=== PATIENT | male | born 1975 | race Hispanic/Latino ===

== ENCOUNTER → 2020-08-30 | Outpatient (CLI) | payer OTHER | END | disposition home or self-care (01) | LOC: EDSEX → CANPRESDC → DAH 10:00 → EDSTATUS 09-07 09:45 | PROVIDERS: ATTEND Internal Medicine Gastroenterology | DX: Z01.818 Encounter for other preprocedural examination (principal); Z20.822 Contact with and (suspected) exposure to COVID-19; K57.92 Diverticulitis of intestine, part unspecified, without perforation or abscess without bleeding | CPT/HCPCS: 87635; C9803 ==

== ENCOUNTER 2020-09-20 09:55 | Emergency (ER) | payer OTHER ==
[~2020-09-20] VITALS: Ht 182.9 cm; Wt 90.7 kg
[2020-09-20 09:57] VITALS: BP 126/76
[2020-09-20 10:33] LABS: BASOPHILS % (AUTO) 0.8 % (0.0-5.0); HEMATOCRIT 40.9 % (36-48); LYMPHOCYTES % (AUTO) 31.5 % (21.0-51.0); MEAN CORPUSCULAR HEMOGLOBIN 30.9 pg (27.0-33.0); MEAN CORPUSCULAR HGB CONC 34.5 g/dL (32.0-36.0); MEAN CORPUSCULAR VOLUME 89.7 fL (79-99); MONOCYTES % (AUTO) 11.4 % (3.0-13.0); NEUTROPHILS % (AUTO) 54.9 % (40.0-77.0); NUCLEATED RED BLOOD CELLS 0.4 % (0.0-0.19); PLATELET COUNT (AUTO) 223 K/uL (130-400); RED BLOOD CELL COUNT(AUTO) 4.56 MIL/uL (4.00-5.50); RED CELL DISTRIBUTION WIDTH 11.4 % (11.0-15.5); WHITE BLOOD COUNT (AUTO) 5.2 K/uL (4.8-10.8)
[2020-09-20 10:43] LABS: CARBON DIOXIDE 32 mmol/L (21-32); CHLORIDE 104 mmol/L (101-111); GLOMERULAR FILTR. RATE CALC 64 mL/min (>60); GLUCOSE,RANDOM 95 mg/dL (70-105); POTASSIUM 3.9 mmol/L (3.5-5.1); SODIUM SERUM 141 mmol/L (136-145); UREA NITROGEN, BLOOD 14 mg/dL (7-18)
[2020-09-20 10:53] LABS: ALANINE AMINOTRANSFERASE 43 U/L (12-78); ALBUMIN 3.8 g/dL (3.5-5.0); ASPARTATE AMINOTRANSFERASE 27 U/L (10-37); BILIRUBIN,TOTAL 0.4 mg/dL (0.2-1.0); CREATINE KINASE, TOTAL 214 U/L (21-232); MYOGLOBIN 51 ng/mL (10-92); TOTAL PROTEIN, SERUM 7.2 g/dL (6.0-8.3); TROPONIN I < 0.04 ng/mL (0.00-0.06)
[2020-09-20 11:50] VITALS: BP 126/75
[2020-09-20 13:18] VITALS: BP 108/79
[2020-09-22] MEDS ORDERED: CYCL10TA7 PO (11:54)
[2020-09-22] MEDS ORDERED: VERA120C2 PO (11:54)
[2020-09-22] MEDS ORDERED: SIME80TA12 PO (11:54)
[2020-09-22] MEDS ORDERED: OMEP40CA21 PO (11:54)
[2020-09-22] MEDS ORDERED: ASPI-1443 PO (11:54)
[2020-09-22] MEDS ORDERED: ASCO-360 PO (11:54)
[2020-09-22] MEDS ORDERED: ACET-2247 PO (11:54)
[2020-09-22] MEDS ORDERED: IBUP-2070 PO (11:54)
== END 2020-09-20 13:19 | disposition home or self-care (01) ==
LOC: EDH 09:55 → EDSEX 09:55 → EDH 13:19
DX: I48.0 Paroxysmal atrial fibrillation (principal); R55 Syncope and collapse; I10 Essential (primary) hypertension; I48.92 Unspecified atrial flutter
CPT/HCPCS: 36415; 80053; 82550; 83874; 84484; 85025; 93005

== ENCOUNTER 2020-09-23 07:32 | Observation (INO) | payer OTHER ==
[2020-09-20 11:33] VITALS: BP 128/67
[2020-09-20 15:30] LABS: INR 0.97 (0.85-1.15); PROTHROMBIN TIME 10.6 SEC (9.6-11.6)
[2020-09-20 15:31] LABS: PARTIAL THROMBOPLASTIN TIME 26.5 SEC (26.3-35.5)
[~2020-09-23] VITALS: Ht 182.9 cm; Wt 95.0 kg
[2020-09-23] VITALS (11 sets, daily range): BP systolic 92–130; BP diastolic 48–67
[~2020-09-23 07:32] MED LIST: 0.9% NACL 500ML IV.SOLN 500 ML IV SCH; ACET-2247 PO; ASCO-360 PO; ASPI-1443 PO; CYCL10TA7 PO; IBUP-2070 PO; OMEP40CA21 PO; SIME80TA12 PO; VERA120C2 PO
[2020-09-23] MEDS ORDERED: LIDOCAINE HCL 400MG/20ML VIAL ONE ×2 (10:03→10:54)
[2020-09-23] MEDS ORDERED: MEPERIDINE-PF 25 MG/ML SYG ONE ×4 (10:03→12:33)
[2020-09-23] MEDS ORDERED: MIDAZOLAM HCL 1 MG/ML 2ML VIAL ONE ×4 (10:03→12:33)
[2020-09-23] MEDS ORDERED: HEPARIN 10,000 UNIT/10ML (1,000 UNIT/ML) VIAL ONE (10:03)
[2020-09-23] MEDS ORDERED: ISOPROTERENOL HCL 0.2 MG/ML AMP/VIAL/BAG ONE (11:02)
[2020-09-23] MEDS ORDERED: AMIODARONE 150MG VIAL ONE ×2 (12:22→12:34)
[2020-09-23] MEDS ORDERED: DiphenhydrAMINE HCL 50 MG/ML VIAL ONE (12:49)
[2020-09-23] MEDS ORDERED: ACETAMINOPHEN 325 MG TAB PO PRN (13:30)
[2020-09-23] MEDS ORDERED: IBUPROFEN 600 MG TABLET PO PRN (13:30)
[2020-09-23] MEDS: PROPAFENONE HCL 150 MG TABLET PO SCH ×2 (14:00→23:12)
[2020-09-23] MEDS: VERAPAMIL HCL 80 MG TABLET PO SCH ×2 (18:08→23:10)
[2020-09-23] MEDS: PANTOPRAZOLE 40 MG TAB DR PO SCH (20:57)
[2020-09-23] MEDS: SIMETHICONE 80 MG TAB.CHEW PO SCH (20:57)
[2020-09-24 04:00] VITALS: BP 101/57
[2020-09-24 04:12] LABS: BASOPHILS % (AUTO) 0.4 % (0.0-5.0); EOSINOPHILS % (AUTO) 0.8 % (0.0-8.0); HEMATOCRIT 36.2 % (42-54); LYMPHOCYTES % (AUTO) 23.3 % (21.0-51.0); MEAN CORPUSCULAR HEMOGLOBIN 30.8 pg (27.0-33.0); MEAN CORPUSCULAR HGB CONC 33.7 g/dL (32.0-36.0); MEAN CORPUSCULAR VOLUME 91.4 fL (79-99); MONOCYTES % (AUTO) 7.7 % (3.0-13.0); NEUTROPHILS % (AUTO) 67.4 % (40.0-77.0); PLATELET COUNT (AUTO) 214 K/uL (130-400); RED BLOOD CELL COUNT(AUTO) 3.96 MIL/uL (4.50-6.20); RED CELL DISTRIBUTION WIDTH 11.6 % (11.0-15.5); WHITE BLOOD COUNT (AUTO) 7.6 K/uL (4.8-10.8)
[2020-09-24 04:23] LABS: CREATININE 1.1 mg/dL (0.5-1.5); POTASSIUM 3.6 mmol/L (3.5-5.1)
[2020-09-24] MEDS: PROPAFENONE HCL 150 MG TABLET PO SCH ×2 (06:04→13:19)
[2020-09-24 07:18] VITALS: BP 110/69
[2020-09-24] MEDS ORDERED: ASPIRIN 81 MG EC TAB PO SCH (09:00)
[2020-09-24] MEDS: SIMETHICONE 80 MG TAB.CHEW PO SCH (10:24)
[2020-09-24] MEDS: PANTOPRAZOLE 40 MG TAB DR PO SCH (10:25)
[2020-09-24] MEDS: VERAPAMIL HCL 80 MG TABLET PO SCH ×2 (10:27→13:19)
[2020-09-24 11:15] VITALS: BP 104/58
[2020-09-24] MEDS ORDERED: PROP225C11 PO (14:09)
[2020-09-24 15:32] VITALS: BP 115/70
== END 2020-09-24 15:43 | disposition home or self-care (01) ==
LOC: DAH 07:32 → DAHIP 07:33 → EDSEX 09:00 → 4BH 13:55
PROVIDERS: ADMIT Internal Medicine; ATTEND Internal Medicine
DX: I47.1 Supraventricular tachycardia (principal); I48.92 Unspecified atrial flutter; H81.10 Benign paroxysmal vertigo, unspecified ear; E11.9 Type 2 diabetes mellitus without complications; F32.9 Major depressive disorder, single episode, unspecified; Z79.82 Long term (current) use of aspirin; Z79.899 Other long term (current) drug therapy
CPT/HCPCS: 36415 ×2; 80048; 85025; 85610; 85730; 93613; 93621; 93623; 93653; A4215; A4216; A4221; A4222; A4223 ×3; A4606; A4649 ×2; A4663; C1730 ×4; C1732; C1894 ×5; G0378 ×26; J0282 ×2; J1200; J1644 ×2; J2175 ×4; J2250 ×4; J3490 ×3; 93005; 99156; 99157

== ENCOUNTER → 2021-06-29 | Outpatient (CLI) | payer OTHER ==
[~2021-06-29] MED LIST changes: -0.9% NACL 500ML IV.SOLN 500 ML IV SCH; +CYCL-309 PO; -CYCL10TA7 PO; +PROP225C11 PO
== END | disposition home or self-care (01) ==
LOC: SHCH 10:00
PROVIDERS: ATTEND Internal Medicine Cardiovascular Disease
DX: I48.3 Typical atrial flutter (principal)
CPT/HCPCS: 93306

== ENCOUNTER 2021-12-30 15:49 | Emergency (ER) | payer OTHER ==
[~2021-12-30] VITALS: Ht 182.9 cm; Wt 104.3 kg
[2021-12-30] MEDS ORDERED: DiphenhydrAMINE HCL 50 MG/ML VIAL IV ONE (16:00)
[2021-12-30] MEDS ORDERED: METOCLOPRAMIDE 10 MG/2 ML VIAL IVP ONE (16:00)
[2021-12-30] MEDS ORDERED: KETOROLAC 30MG VIAL (30MG/ML) IVP ONE (16:00)
[2021-12-30 16:05] LABS: BASOPHILS % (AUTO) 0.5 % (0.0-5.0); EOSINOPHILS % (AUTO) 1.2 % (0.0-8.0); HEMATOCRIT 39.3 % (42-54); LYMPHOCYTES % (AUTO) 27.5 % (21.0-51.0); MEAN CORPUSCULAR HEMOGLOBIN 30.8 pg (27.0-33.0); MEAN CORPUSCULAR HGB CONC 34.6 g/dL (32.0-36.0); MEAN CORPUSCULAR VOLUME 89.1 fL (79-99); MONOCYTES % (AUTO) 12.7 % (3.0-13.0); NEUTROPHILS % (AUTO) 57.8 % (40.0-77.0); PLATELET COUNT (AUTO) 226 K/uL (130-400); RED BLOOD CELL COUNT(AUTO) 4.41 MIL/uL (4.50-6.20); RED CELL DISTRIBUTION WIDTH 11.7 % (11.0-15.5); WHITE BLOOD COUNT (AUTO) 5.9 K/uL (4.8-10.8)
[2021-12-30 16:12] LABS: CREATININE 1.1 mg/dL (0.5-1.5); POTASSIUM 3.8 mmol/L (3.5-5.1)
[2021-12-30] MEDS ORDERED: KETOROLAC 30MG VIAL (30MG/ML) ONE (16:15)
[2021-12-30] MEDS ORDERED: DiphenhydrAMINE HCL 50 MG/ML VIAL ONE (16:15)
[2021-12-30] MEDS ORDERED: METOCLOPRAMIDE 10 MG/2 ML VIAL ONE (16:15)
[2021-12-30 16:19] LABS: ALBUMIN 3.6 g/dL (3.5-5.0); TOTAL PROTEIN, SERUM 6.9 g/dL (6.0-8.3)
[2021-12-30 16:23] LABS: B-TYPE NATRIURETIC PEPTIDE < 5 pg/mL (0-100)
[2021-12-30 17:04] VITALS: BP 115/75
== END 2021-12-30 17:12 | disposition home or self-care (01) ==
LOC: EDH 15:49
DX: G43.909 Migraine, unspecified, not intractable, without status migrainosus (principal); I48.91 Unspecified atrial fibrillation; I10 Essential (primary) hypertension; I48.92 Unspecified atrial flutter; Z79.82 Long term (current) use of aspirin; Z79.899 Other long term (current) drug therapy
CPT/HCPCS: 99284; 96374; 96375; 84484; 80053; 83880; 85025; 36415; 93005; J1200; J1885; J2765

== ENCOUNTER → 2022-04-06 | Outpatient (CLI) | payer OTHER ==
[~2022-04-06] MED LIST changes: +IOHEXOL 350 MG/ML 100ML INFUS..BTL IV ONE
== END | disposition home or self-care (01) ==
LOC: RAH 10:28
PROVIDERS: ATTEND Internal Medicine Cardiovascular Disease
DX: R07.9 Chest pain, unspecified (principal); M47.815 Spondylosis without myelopathy or radiculopathy, thoracolumbar region
CPT/HCPCS: 75574; Q9967

== ENCOUNTER → 2022-09-18 | Outpatient (CLI) | payer OTHER ==
[~2022-09-18] MED LIST changes: -IOHEXOL 350 MG/ML 100ML INFUS..BTL IV ONE
== END | disposition home or self-care (01) ==
LOC: SHCH 14:30
PROVIDERS: ATTEND Internal Medicine Cardiovascular Disease
DX: I87.2 Venous insufficiency (chronic) (peripheral) (principal); I73.9 Peripheral vascular disease, unspecified
CPT/HCPCS: 93925; 93970

== ENCOUNTER 2024-01-02 06:30 | Day surgery (SDC) | payer OTHER ==
[2023-12-28 09:59] LABS: BASOPHILS # (AUTO) 0.06 K/uL (0.00-0.20); BASOPHILS % (AUTO) 0.9 % (0.0-5.0); EOSINOPHILS % (AUTO) 1.5 % (0.0-8.0); HEMATOCRIT 42.4 % (42-54); IMMATURE GRANULOCYTE ABSOLUTE 0.02 K/uL (0-1); MEAN CORPUSCULAR HGB CONC 33.3 g/dL (32.0-36.0); MEAN CORPUSCULAR VOLUME 93.2 fL (79-99); MONOCYTES # (AUTO) 0.7 K/uL (0.1-1.0); MONOCYTES % (AUTO) 10.8 % (3.0-13.0); NEUTROPHILS # (AUTO) 3.8 K/uL (1.8-7.7); NEUTROPHILS % (AUTO) 56.5 % (40.0-77.0); PLATELET COUNT (AUTO) 239 K/uL (130-400); RED BLOOD CELL COUNT(AUTO) 4.55 MIL/uL (4.50-6.20); RED CELL DISTRIBUTION WIDTH 11.9 % (11.0-15.5); WHITE BLOOD COUNT (AUTO) 6.7 K/uL (4.8-10.8)
[2023-12-28 10:01] LABS: CREATININE 1.1 mg/dL (0.5-1.3); POTASSIUM 3.7 mmol/L (3.5-5.1)
[2023-12-28 10:03] LABS: INR 0.97 (0.85-1.15); PROTHROMBIN TIME 10.5 SEC (9.6-11.6)
[2023-12-28 10:05] LABS: PARTIAL THROMBOPLASTIN TIME 26.2 SEC (26.3-35.5)
[2023-12-28 10:36] VITALS: BP 114/69; PULSE 70; RESP 16; TEMP 97.4
[~2024-01-02] VITALS: Ht 185.4 cm; Wt 114.4 kg
[~2024-01-02 06:30] MED LIST changes: -ACET-2247 PO; -ASCO-360 PO; +ASPI-1005 PO; -ASPI-1443 PO; +ATOR40TA71 PO; +CETI10TA57 PO; +CLOP75TA32 PO; -CYCL-309 PO; +GABA-529 PO; +GABA100C PO; -IBUP-2070 PO; +MAGNESIUM PO; +MVI PO; -OMEP40CA21 PO; +PANT40TA54 PO; -SIME80TA12 PO; +VENL-63 PO
[2024-01-02 07:10] VITALS: BP 135/77; PULSE 81; RESP 17; TEMP 98.4
[2024-01-02] MEDS: LIDOCAINE HCL 2% VISCOUS 15 ML UDCUP PO ONE (07:38)
[2024-01-02] MEDS: 0.9%NACL 1000ML 1,000 ML IV ONE (07:40)
[2024-01-02 09:15] VITALS: BP 111/52; PULSE 71; RESP 12
[2024-01-02] MEDS: FENTanyl CITRate PF 50 MCG/1 ML 2ML VIAL IVP ONE (09:17)
[2024-01-02] MEDS: MIDAZOLAM HCL 1 MG/ML 2ML VIAL IVP ONE (09:18)
[2024-01-02 09:20] VITALS: BP 109/66; PULSE 75; RESP 14
[2024-01-02 09:35] VITALS: BP 103/63; PULSE 71; RESP 12
[2024-01-02 09:50] VITALS: BP 105/57; PULSE 74; RESP 12; TEMP 98.1
[2024-01-02 10:05] VITALS: BP 100/62; PULSE 71; RESP 14
== END 2024-01-02 10:20 | disposition home or self-care (01) ==
LOC: DAH 06:30 → EDSTATUS 11:00
PROVIDERS: ATTEND Internal Medicine Cardiovascular Disease
DX: I48.0 Paroxysmal atrial fibrillation (principal); I34.0 Nonrheumatic mitral (valve) insufficiency; I48.4 Atypical atrial flutter; F32.A Depression, unspecified; I49.1 Atrial premature depolarization; E66.9 Obesity, unspecified; Z68.37 Body mass index [BMI] 37.0-37.9, adult; Z86.73 Personal history of transient ischemic attack (TIA), and cerebral infarction without residual deficits; Z79.82 Long term (current) use of aspirin; Z79.899 Other long term (current) drug therapy
CPT/HCPCS: 80048; 85025; 85610; 85730; 36415; 93005; 93325; C8925; J3010; J7030; J2250; A4615; A4215; A4657; A4222; A4221; A4663; A4216 ×2; A4606; A4223 ×3; 93312; 99152; G0500

== ENCOUNTER 2024-01-19 14:51 | Observation (INO) | payer OTHER ==
[~2024-01-19] VITALS: Ht 182.9 cm; Wt 113.4 kg
[2024-01-19 15:29] LABS: BASOPHILS # (AUTO) 0.03 K/uL (0.00-0.20); BASOPHILS % (AUTO) 0.4 % (0.0-5.0); EOSINOPHILS # (AUTO) 0.12 K/uL (0.00-0.70); EOSINOPHILS % (AUTO) 1.4 % (0.0-8.0); HEMATOCRIT 40.5 % (42-54); IMMATURE GRANULOCYTE ABSOLUTE 0.04 K/uL (0-1); LYMPHOCYTES # (AUTO) 2.1 K/uL (1.0-4.8); LYMPHOCYTES % (AUTO) 24.9 % (21.0-51.0); MEAN CORPUSCULAR HEMOGLOBIN 30.6 pg (27.0-33.0); MEAN CORPUSCULAR HGB CONC 34.6 g/dL (32.0-36.0); MEAN CORPUSCULAR VOLUME 88.4 fL (79-99); MONOCYTES # (AUTO) 0.9 K/uL (0.1-1.0); MONOCYTES % (AUTO) 10.3 % (3.0-13.0); NEUTROPHILS # (AUTO) 5.3 K/uL (1.8-7.7); NEUTROPHILS % (AUTO) 62.5 % (40.0-77.0); PLATELET COUNT (AUTO) 254 K/uL (130-400); RED BLOOD CELL COUNT(AUTO) 4.58 MIL/uL (4.50-6.20); RED CELL DISTRIBUTION WIDTH 11.9 % (11.0-15.5); WHITE BLOOD COUNT (AUTO) 8.4 K/uL (4.8-10.8)
[2024-01-19 15:34] LABS: CARBON DIOXIDE 29 mmol/L (21-32); CHLORIDE 97 mmol/L (101-111); CREATININE 1.2 mg/dL (0.5-1.3); GLOMERULAR FILTR. RATE CALC 75 mL/min (>90); GLUCOSE,RANDOM 105 mg/dL (70-105); POTASSIUM 3.5 mmol/L (3.5-5.1); SODIUM SERUM 135 mmol/L (136-145); UREA NITROGEN, BLOOD 17 mg/dL (7-18)
[2024-01-19 15:39] LABS: AMPHET/METH SCREEN,URINE NEGATIVE (NEGATIVE); BARBITURATE SCREEN, URINE NEGATIVE (NEGATIVE); BENZODIAZEPINES SCREEN,URINE NEGATIVE (NEGATIVE); CANNABINOID SCREEN,URINE NEGATIVE (NEGATIVE); COCAINE SCREEN,URINE NEGATIVE (NEGATIVE); OPIATE SCREEN,URINE NEGATIVE (NEGATIVE); PHENCYCLIDINE SCREEN,URINE NEGATIVE (NEGATIVE)
[2024-01-19 15:44] LABS: ALCOHOL, BLOOD < 3 mg/dL (0-10); CREATINE KINASE, TOTAL 281 U/L (21-232)
--- NOTE | 2024-01-19 15:48 | ERN ---
ED Note History of Present Illness Stated Complaint: PALPITATIONS Chief Complaint: Palpitations Time Seen by MD: 14:52 Dictation: A 48-year-old male presents to the ED for evaluation of palpitations onset BOOK JOGGER. Patient is complaining of dizziness, weakness, nausea but denies any chest pain, shortness a breath, sore throat or cough. Patient reports history of SVT, a flutter, AFib, PTSD, migraines, vertigo and ablation that was performed 5 years ago. Patient is a patient of Dr. Ram and Dr. Jose G Shaver. No other medical or surgical history mentioned. Allergies: Coded Allergies: No Known Drug Allergies (Unverified Allergy, Unknown, 09/20/20) Home Meds Active Scripts Propafenone HCl (Rythmol Sr) 225 Mg Cap.er.12h, 225 MG PO BID, #60 CAPSULE.DR 3 Refills Prov:MARCY VYAS MD 09/24/20 Reported Medications Cetirizine HCl (Cetirizine HCl) 10 Mg Tablet, 10 MG PO BID, TAB 12/28/23 [Mvi] No Conflict Check, 1 TAB PO DAILY 12/28/23 [Magnesium] No Conflict Check, 1 TAB PO DAILY 12/28/23 Gabapentin (Neurontin) 100 Mg Capsule, 1 CAP PO TID for 30 Days, #90 CAP 0 Refills 12/28/23 Gabapentin (Gabapentin) 100 Mg Capsule, 200 MG PO HS, CAP 12/28/23 Atorvastatin Calcium (Atorvastatin Calcium) 40 Mg Tablet, 1 TAB PO HS for 30 Days, #30 TAB 0 Refills 12/28/23 Venlafaxine HCl (Venlafaxine HCl ER) 150 Mg Cap.er.24h, 1 CAP PO DAILY for 30 Da ys, #30 CAP 0 Refills 12/28/23 Clopidogrel Bisulfate (Clopidogrel) 75 Mg Tablet, 1 TAB PO DAILY for 30 Days, #30 TAB 0 Refills 24 Pantoprazole Sodium (Pantoprazole Sodium) 40 Mg Tablet.dr, 1 TAB PO DAILY for 30 Days, #30 TAB 0 Refills 12/28/23 Aspirin (ASPIRIN 81MG CHEW TAB) 81 Mg Tab.chew, 1 TAB PO DAILY for 30 Days, #30 TAB 0 Refills 12/28/23 Verapamil HCl (Verapamil ER) 120 Mg Cap24h.pel, 120 MG PO AM 09/22/20 Past Medical History Past Medical History: A-Fib, Hypertension Additional Past Medical Hx: ATRIAL FLUTTER, SVT'S, Surgical History: Other Surgical History Other: HEART ABLATION Social History: Lives with family Review of System Dictation Constitutional: Positive for weakness Negative for fever,chills, and weight loss Eyes: Negative for injury, pain,redness, and discharge ENT: Negative for injury,pain or swelling Cardiovascular positive for palpitation negative for chest pain Respiratory: Negative for shortness of breath, cough, and wheezing, Abdomen/GI: Negative for abdominal pain, nausea, vomiting, diarrhea, and constipation Back: Negative for injury and pain : Negative for injury, bleeding and discharge MS/Extremity: Negative for injury and deformity Skin: Negative for rash, and discoloration Neuro: Positive for dizziness Negative for headache, weakness, numbness, tingling, and seizure Psych: Negative for suicide ideation, homicidal ideation, and hallucinations Initial Vital Sign VS Vital Signs Date Time Temp Pulse Resp B/P (MAP) Pulse Ox O2 Delivery O2 Flow Rate FiO2 01/19/24 14:53 98.8 72 20 123/81 98 Room Air 0 01/19/24 15:11 21 Physical Exam Dictation General: awake, alert, NAD Head/Face: Normocephalic, atraumatic Eyes: PERRL, EOMI, vision at baseline ENT: oral cavity clear, TMs clear, no signs of infection Neck: Trachea midline, supple, no nuchal rigidity Cardiovascular: RRR, normal S1/S2, No MRGs, no JVD Respiratory: CTAB, no respiratory distress, No rales or wheezes Abdomen: Soft, non-tender, non-distended, normal bowel sounds, no guarding or rebound. Skin: Warm, dry, normal turgor, no rash MS/Extremity: Pulses equal, no cyanosis, neurovascular intact, FROM Neuro: COAx4, GCS 15, strength 5/5, CN 2-12 intact, normal cerebellar exam, normal gait, Psych: Normal behavior, mood, and affect normal Results (Laboratory/Radiology) Laboratory/Radiology Laboratory Tests Test 01/19/24 15:07 01/19/24 15:20 01/19/24 16:14 White Blood Count 8.4 K/uL (4.8-10.8) Red Blood Count 4.58 MIL/uL (4.50-6.20) Hemoglobin 14.0 g/dL (14.0-18.0) Hematocrit 40.5 % (42-54) L Mean Corpuscular Volume 88.4 fL (79-99) Mean Corpuscular Hemoglobin 30.6 pg (27.0-33.0) Mean Corpuscular Hemoglobin Concent 34.6 g/dL (32.0-36.0) Red Cell Distribution Width 11.9 % (11.0-15.5) Platelet Count 254 K/uL (130-400) Mean Platelet Volume 9.2 fL (7.5-10.5) Immature Granulocyte % (Auto) 0.5 % (0-1) Neutrophils (%) (Auto) 62.5 % (40.0-77.0) Lymphocytes (%) (Auto) 24.9 % (21.0-51.0) Monocytes (%) (Auto) 10.3 % (3.0-13.0) Eosinophils (%) (Auto) 1.4 % (0.0-8.0) Basophils (%) (Auto) 0.4 % (0.0-5.0) Neutrophils # (Auto) 5.3 K/uL (1.8-7.7) Lymphocytes # (Auto) 2.1 K/uL (1.0-4.8) Monocytes # (Auto) 0.9 K/uL (0.1-1.0) Eosinophils # (Auto) 0.12 K/uL (0.00-0.70) Basophils # (Auto) 0.03 K/uL (0.00-0.20) Absolute Immature Granulocyte (auto 0.04 K/uL (0-1) Nucleated Red Blood Cells 0.0 % (0.0-0.19) Sodium Level 135 mmol/L (136-145) L Potassium Level 3.5 mmol/L (3.5-5.1) Chloride Level 97 mmol/L (101-111) L Carbon Dioxide Level 29 mmol/L (21-32) Blood Urea Nitrogen 17 mg/dL (7-18) Creatinine 1.2 mg/dL (0.5-1.3) Glomerular Filtration Rate Calc 75 mL/min (>90) Random Glucose 105 mg/dL (70-105) Total Calcium 8.8 mg/dL (8.5-10.1) Magnesium Level 2.00 mg/dL (1.80-2.40) Total Creatine Kinase 281 U/L (21-232) #H Troponin I High Sensitivity 7 ng/L (4-75) 6 ng/L (4-75) B-Type Natriuretic Peptide 6 pg/mL (0-100) Serum Alcohol < 3 mg/dL (0-10) Urine Opiates Screen NEGATIVE (NEGATIVE) Urine Barbiturates Screen NEGATIVE (NEGATIVE) Urine Phencyclidine Screen NEGATIVE (NEGATIVE) Urine Amphetamines Screen NEGATIVE (NEGATIVE) Urine Benzodiazepines Screen NEGATIVE (NEGATIVE) Urine Cocaine Screen NEGATIVE (NEGATIVE) Urine Marijuana (THC) Screen NEGATIVE (NEGATIVE) Labs Reviewed?: Yes ED Course ED Course Orders Procedure Category Date Status Time 12 Lead Ekg Tracing- EKG 01/19/24 Logged Technical 14:57 Cbc With Differential LAB 01/19/24 Complete 14:59 B-Type Natriuretic LAB 01/19/24 Complete Peptide 14:59 Chest 1vw RAD 01/19/24 Resulted 14:59 12 Lead Ekg Tracing- EKG 01/19/24 Logged Technical 14:59 Magnesium LAB 01/19/24 Complete 14:59 Creatine Kinase, Total LAB 01/19/24 Complete 14:59 Troponin I High LAB 01/19/24 Complete Sensitivity 14:59 Basic Metabolic Panel LAB 01/19/24 Complete 14:59 Drug Screen Urine LAB 01/19/24 Complete 14:59 Alcohol, Blood LAB 01/19/24 Complete 14:59 Troponin I High LAB 01/19/24 Complete Sensitivity 15:49 Vital Signs(Adult CPOE 01/19/24 Verified Hospitalist) 16:56 Nurse To Enter Home CPOE 01/19/24 Verified Medication 16:56 Admit Orders ADM 01/19/24 Verified 16:56 Vital Signs Date Time Temp Pulse Resp B/P (MAP) Pulse Ox O2 Delivery O2 Flow Rate FiO2 01/19/24 15:11 98.8 84 18 146/79 96 Room Air* 0 21 01/19/24 14:53 98.8 72 20 123/81 98 Room Air 0 Medical Decision Making MDM CC: palpitations Comorbidities: afib, SVT, a-flutter, HTN, PTSD. Differential diagnosis: arrythmia, ACS, metabolic disorder EKG: NSR w/ ectopic beats, normal axis, good rwp, no STEMI. Interpreted independently by me. VSS CBC: normal. BMP: normal, CK normal. Troponin x 2 normal. Discussed admission v DC w/ patient, he prefers admission for telemetry observation. Consultation: hospitalist for admission. MDM: Differential diagnosis: Palpitations, AFib Previous outside records reviewed: Old ER visits. Need for hospitalization: Patient does not meet criteria for hospitalization. Need for emergency major/minor surgery: No Patient's prior external medical records from other ER visits were reviewed by me as indicated. Prior testing and results from previous visits were reviewed. Prior tests were taken into account with medical decision making and resource utilization, independent historian/historians were used to obtain complete medical history. I independently interpreted the test that were performed, results were reviewed by me and considered findings on radiology if ordered. Medical management and examination interpretation discussions were had by me with other qualified healthcare professionals as indicated for the patient's care. DX & DISP Disposition: Inpatient Departure Impression: Primary Impression: Palpitations Additional Impression: Atrial fibrillation Condition: Stable Referrals: TONY PARHAM (PCP) I have reviewed, & agreed with my scribe's, documentation. (Entered by Rhonda Combs, acting as a scribe for Dr. Curiel) I personally scribed for ROBI CURIEL DO (DEVAN) on 01/19/24 at 15:48. Electronically submitted by Rhonda Combs ([email or web address]). ROBI CURIEL DO Jan 19, 2024 15:48
[2024-01-19 15:53] LABS: B-TYPE NATRIURETIC PEPTIDE 6 pg/mL (0-100)
--- NOTE | 2024-01-19 15:57 | HMCIMG ---
CHEST 1VW HISTORY: Chest pain COMPARISON: None FINDINGS: A frontal projection of the chest was obtained. Prominent interstitial markings are seen with possible superimposed infiltrates. The heart is borderline enlarged. Degenerative changes are seen. No evidence of aortic calcification is seen. IMPRESSION: 1. Prominent interstitial markings are seen with possible superimposed infiltrates.
[2024-01-19] MEDS ORDERED: ondanSETRON 4MG INJ IVP PRN (17:00)
[2024-01-19] MEDS ORDERED: acetaMINOPHEN 325 MG TAB PO PRN ×2 (17:00)
[2024-01-19] MEDS ORDERED: MAGNESIUM 2GM PREMIX 50ML 50 ML IV PRN (17:30)
[2024-01-19] MEDS ORDERED: PoTASSium chloRIDE 20MEQ ER 20 MEQ ERTAB PO PRN (17:30)
[2024-01-19] MEDS ORDERED: GLUCAGON 1MG KIT 1 MG ML IM PRN (17:30)
[2024-01-19] MEDS ORDERED: DEXTROSE 50%-WATER 50 ML DISP.SYRIN IV PRN (17:30)
[2024-01-19] MEDS ORDERED: PoTASSium chloRIDE 20MEQ/100ML 100 ML IV PRN (17:30)
[2024-01-19] MEDS ORDERED: PoTASSium chl 10% ELIXIR 20MEQ 20 MEQ/15 ML UDCUP PO PRN (17:30)
--- NOTE | 2024-01-19 17:33 | HP ---
[facility] HISTORY AND PHYSICAL Date of Service: Jan 19, 2024 Time of Service: 17:17 HISTORY OF PRESENT ILLNESS: 48-year-old male who presented to the emergency department with chief complaints of dizziness, nausea and palpitations, patient stated that he feels like his "heart is pumping fast. Patient also felt like his arms are numb. He stated that he was eating when it started. Patient was feeling okay yesterday no other complaints no no shortness of breaths no cough no fever no chills. Patient stated that he has Holter monitor from Dr. Shaver as he just saw him this past week for which they adjusted his verapamil from 120 now at 180 In the ED, his initial vitals showed temperature 98.8, pulse 72, respiratory rate 20, blood pressure 123/81, pulse oximetry 98% on room air. As per ED note, an EKG was done which showed normal sinus rhythm with ectopic beats, normal axis, good artery KUB, no STEMI which was interpreted by Dr. Curiel. Patient was recommended for admission for further monitoring/observation. Patient will be placed on telemetry. ] REVIEW OF SYSTEMS CONSTITUTIONAL: Denies fevers, chills, or night sweats. No unintentional weight loss reported. NEUROLOGICAL: Denies headache, amaurosis fugax, motor weakness, sensory deficit, vertigo/spinning sensation, gait abnormalities, or tremors. ENT: No hearing loss, otalgia, otorrhea, rhinitis, rhinorrhea, hoarseness, or sore throat. CARDIOVASCULAR: Denies any exertional angina, dyspnea on exertion, orthopnea, paroxysmal nocturnal dyspnea, palpitations, life-threatening arrhythmias, claudication. PULMONARY: Denies any shortness of breath, cough, phlegm/sputum, hemoptysis, pleuritic chest pain. SLEEP: Denies morning headaches, daytime somnolence or napping. Denies diff iculty falling asleep, staying asleep, waking from sleep. Denies knowledge of snoring. GASTROINTESTINAL: Denies any type of dysphagia to either liquids or solids. Denies nausea, vomiting, pyrosis, early satiety, abdominal pain, diarrhea, constipation, or changes in stool consistency or caliber. Denies coffee-ground emesis, hematemesis, hematochezia, or melanotic stools. GENITOURINARY: Denies frequency, urgency, nocturia, hematuria or incontinence (Storage/Irritative symptoms.) Low urinary stream, straining to void, urinary intermittency or hesitancy, splitting of the voiding stream, terminal dribbling. ENDOCRINOLOGIC: Denies polyuria, polydipsia, polyphagia or heat/cold in tolerances. HEMATOLOGIC: Denies thrombophilia/previous clots, or coagulopathy/bleeding disorders. ONCOLOGIC: Denies personal history of malignancy. DERMATOLOGIC: Denies rashes or pruritus. PSYCHIATRIC: Denies any suicidal or homicidal ideation. Denies hallucinations. PAST MEDICAL HISTORY: [SVT, atrial fibrillation, ] PAST SURGICAL/PROCEDURE HISTORY: [ Ablation ] PAST SOCIAL HISTORY: [Patient is disabled from the . He is currently not working. Denies tobacco, alcohol or illicit drug use ] FAMILY HISTORY: [ Noncontributory ] Coded Allergies: No Known Drug Allergies (Unverified Allergy, Unknown, 09/20/20) PHYSICAL EXAM GENERAL APPEARANCE: The patient is awake, alert, and oriented, in no acute cardiopulmonary distress. NEUROLOGICAL: Cranial nerves II-XII grossly intact. Motor is 5/5 in bilateral upper and lower extremities proximal to distal. No sensory deficits. HEENT: Face is symmetric. Pupils are equal and reactive. Extraocular movements are intact. NECK: Supple. No JVD. No thyromegaly. No submental, submandibular, pre- /postauricular, occipital or supraclavicular lymphadenopathy. CHEST: Normal chest expansion. No Telemetry. LUNGS: Absence of any rales, rhonchi or any wheezing. CARDIOVASCULAR: Regular. S1 and S2 normal. No appreciable rubs, murmurs or gallops. ABDOMEN: Soft, nontender, and nondistended. There is no rebound, voluntary guarding, or rigidity. : Deferred. No Williamson. EXTREMITIES: Non-edematous and not cyanotic. No clubbing. Good capillary refill. SKIN: No skin breakdown. Vital Sign (Last 24 Hours) 01/19/24 15:11 Temp 98.8 Pulse 84 Resp 18 B/P (MAP) 146/79 Pulse Ox 96 O2 Delivery Room Air* O2 Flow Rate 0 FiO2 21 LABS: Laboratory: Test 01/19/24 16:14 01/19/24 15:20 01/19/24 15:07 Range/Units Troponin I High Sensitivity 6 4-75 ng/L Urine Opiates Screen NEGATIVE NEGATIVE Urine Barbiturates Screen NEGATIVE NEGATIVE Urine Phencyclidine Screen NEGATIVE NEGATIVE Urine Amphetamines Screen NEGATIVE NEGATIVE Urine Benzodiazepines Screen NEGATIVE NEGATIVE Urine Cocaine Screen NEGATIVE NEGATIVE Urine Marijuana (THC) Screen NEGATIVE NEGATIVE White Blood Count 8.4 4.8-10.8 K/uL Red Blood Count 4.58 4.50-6.20 MIL/uL Hemoglobin 14.0 14.0-18.0 g/dL Hematocrit 40.5 L 42-54 % Mean Corpuscular Volume 88.4 79-99 fL Mean Corpuscular Hemoglobin 30.6 27.0-33.0 pg Mean Corpuscular Hemoglobin Concent 34.6 32.0-36.0 g/dL Red Cell Distribution Width 11.9 11.0-15.5 % Platelet Count 254 130-400 K/uL Mean Platelet Volume 9.2 7.5-10.5 fL Immature Granulocyte % (Auto) 0.5 0-1 % Neutrophils (%) (Auto) 62.5 40.0-77.0 % Lymphocytes (%) (Auto) 24.9 21.0-51.0 % Monocytes (%) (Auto) 10.3 3.0-13.0 % Eosinophils (%) (Auto) 1.4 0.0-8.0 % Basophils (%) (Auto) 0.4 0.0-5.0 % Neutrophils # (Auto) 5.3 1.8-7.7 K/uL Lymphocytes # (Auto) 2.1 1.0-4.8 K/uL Monocytes # (Auto) 0.9 0.1-1.0 K/uL Eosinophils # (Auto) 0.12 0.00-0.70 K/uL Basophils # (Auto) 0.03 0.00-0.20 K/uL Absolute Immature Granulocyte (auto 0.04 0-1 K/uL Nucleated Red Blood Cells 0.0 0.0-0.19 % Sodium Level 135 L 136-145 mmol/L Potassium Level 3.5 3.5-5.1 mmol/L Chloride Level 97 L 101-111 mmol/L Carbon Dioxide Level 29 21-32 mmol/L Blood Urea Nitrogen 17 7-18 mg/dL Creatinine 1.2 0.5-1.3 mg/dL Glomerular Filtration Rate Calc 75 >90 mL/min Random Glucose 105 70-105 mg/dL Total Calcium 8.8 8.5-10.1 mg/dL Magnesium Level 2.00 1.80-2.40 mg/dL Total Creatine Kinase 281 #H 21-232 U/L B-Type Natriuretic Peptide 6 0-100 pg/mL Serum Alcohol < 3 0-10 mg/dL Current Medications Medications (Trade) Dose Ordered Sig/Warren Route PRN Reason Start Time Stop Time Status Last Admin Dose Admin Acetaminophen (TYLenol 325MG TAB) 650 mg Q4H PRN PO TEMPERATURE GREATER THAN 101.5 01/19/24 17:00 02/18/24 16:59 UNV Acetaminophen (TYLenol 325MG TAB) 650 mg Q6H PRN PO MILD PAIN (1-3) 01/19/24 17:00 02/18/24 16:59 UNV Dextrose (D50w) 50 ml AD PRN IV HYPOGLYCEMIA PROTOCOL 01/19/24 17:30 02/18/24 17:29 UNV Enoxaparin Sodium (Lovenox) 40 mg DAILY SQ 01/20/24 09:00 02/19/24 08:59 UNV Glucagon (Glucagon 1mg Kit) 1 mg AD PRN IM HYPOGLYCEMIA PROTOCOL 01/19/24 17:30 02/18/24 17:29 UNV Magnesium Sulfate 50 ml @ 0 mls/hr PROTOCOL PRN IV MAGNESIUM PROTOCOL 01/19/24 17:30 02/18/24 17:29 UNV Metoprolol Tartrate (loprESSOR) 12.5 mg BID PO 01/19/24 21:00 02/18/24 20:59 UNV Ondansetron HCl (zoFRAN 4MG INJ) 4 mg Q6H PRN IVP NAUSEA/VOMITING 01/19/24 17:00 02/18/24 16:59 UNV Potassium Chloride 100 ml @ 100 mls/hr AD PRN IV POTASSIUM PROTOCOL 01/19/24 17:30 02/18/24 17:29 UNV Potassium Chloride (KCl 10% Elixir 20meq/15ml) 20 meq AD PRN PO POTASSIUM PROTOCOL 01/19/24 17:30 02/18/24 17:29 UNV DIAGNOSTICS / RADIOLOGY: [ ] ASSESSMENT: [Palpitation with possible underlying AFib, POA AFib RVR, POA not sustaining Generalized weakness, POA Dizziness , POA Nausea, POA Mild rhabdomyolysis, POA Hyponatremia, POA Hypochloremia, POA ] PLAN: [Patient will be admitted in telemetry floor We will continue with tele monitoring We will request his home medications We will provide VTE prophylaxis Patient will be on gentle fluid hydration due to mild rhabdomyolysis We will monitor his kidney functions We will renally dose medication and avoid nephrotoxic We will continue with antiemetics GI prophylaxis We will repeat labs tomorrow We will trend troponin We will order12 lead in the morning 2D echo in a.m. If his symptoms persist we will consider Cardiology consult in a.m. Patient is a full code Discussed plan with the patient, he verbalized understanding and is in agreement with the plan Discussed case with attending physician, above plan was formulated ADVANCED CARE PLANNING 1. Which of the following were discussed? Hospice Care - Yes / No Therapeutic options - Yes / No Advance Directives - Yes / No Other discussions - 2. Discussed with who? Patient 3. Voluntary nature of this service was explained to the patient? Yes / No 4. Amount of time spent - __21 mins____ 5. Reviewed by Physician? (if this service was performed by NPP) Yes / No ] ATTESTATION BY PHYSICIAN I have seen and examined the patient. I reviewed the documentation, medical decision making, and treatment plan as noted by the mid-level provider above. I agree with the findings and plan of care. DEEP CELIS MD, [facility] Jan 19, 2024 17:33
[2024-01-19] MEDS ORDERED: CHOL100046 PO (17:52)
[2024-01-19] MEDS ORDERED: ESCI-8 PO (17:52)
[2024-01-19 17:56] LABS: CHOLESTEROL 137 mg/dL (<200); HDL CHOLESTEROL 51 mg/dL (29-71); HEMOGLOBIN A1C 5.4 % (4.0-6.0); LDL DIRECT 72 mg/dL (0-99); TRIGLYCERIDES 104 mg/dL (30-200)
--- NOTE | 2024-01-19 19:54 | EKG ---
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
[2024-01-19] MEDS: metoPROLOL tartRATE 25 MG TAB PO SCH (21:20)
[2024-01-20 04:59] LABS: HEMATOCRIT 41.5 % (42-54); MEAN CORPUSCULAR VOLUME 91.2 fL (79-99); RED BLOOD CELL COUNT(AUTO) 4.55 MIL/uL (4.50-6.20); RED CELL DISTRIBUTION WIDTH 12.1 % (11.0-15.5); WHITE BLOOD COUNT (AUTO) 7.2 K/uL (4.8-10.8)
[2024-01-20 05:24] LABS: ALBUMIN 3.3 g/dL (3.5-5.0); BILIRUBIN,TOTAL 0.6 mg/dL (0.2-1.0); CREATININE 1.1 mg/dL (0.5-1.3); POTASSIUM 3.7 mmol/L (3.5-5.1); TOTAL PROTEIN, SERUM 6.2 g/dL (6.0-8.3)
--- NOTE | 2024-01-20 07:05 | EKG ---
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
[2024-01-20] MEDS: ENOXAPARIN SODIUM 40 MG/0.4 ML SYRINGE SQ SCH (09:04)
[2024-01-20 09:11] VITALS: BP 119/67; PULSE 73; RESP 16; TEMP 97.8; O2SAT 97
--- NOTE | 2024-01-20 10:44 | NUR ---
DISCHARGED AMBULATORY WITH SPOUSE, ALL BELONGINGS, UNDERSTOOD INSTRUCTIONS PIV OUT
--- NOTE | 2024-01-20 11:28 | DS ---
Discharge Summary Assessment/Plan: Discharge diagnosis Admitting diagnosis [Palpitation with possible underlying AFib, POA AFib RVR, POA not sustaining Generalized weakness, POA Dizziness , POA Nausea, POA Mild rhabdomyolysis, POA Hyponatremia, POA Hypochloremia, POA ] PLAN: [Patient will be admitted in telemetry floor We will continue with tele monitoring We will request his home medications We will provide VTE prophylaxis Patient will be on gentle fluid hydration due to mild rhabdomyolysis We will monitor his kidney functions We will renally dose medication and avoid nephrotoxic We will continue with antiemetics GI prophylaxis We will repeat labs tomorrow We will trend troponin We will order12 lead in the morning 2D echo in a.m. If his symptoms persist we will consider Cardiology consult in a.m. Patient is a full code Discussed plan with the patient, he verbalized understanding and is in agreement with the plan Discussed case with attending physician, above plan was formulated ADVANCED CARE PLANNING 1. Which of the following were discussed? Hospice Care - Yes / No Therapeutic options - Yes / No Advance Directives - Yes / No Other discussions - 2. Discussed with who? Patient 3. Voluntary nature of this service was explained to the patient? Yes / No 4. Amount of time spent - __21 mins____ 5. Reviewed by Physician? (if this service was performed by NPP) Yes / No ] Discharge Instructions: Follow up with PCP in 2-3 days Follow up with the tombstone erector helper in one week Home Medications: Active Scripts Propafenone HCl (Rythmol Sr) 225 Mg Cap.er.12h, 225 MG PO BID, #60 CAPSULE. 3 Refills Prov:MARCY VYAS MD 09/24/20 Reported Medications Escitalopram Oxalate (Escitalopram Oxalate) 10 Mg Tablet, 1 TAB PO DAILY for 30 Days, #30 TAB 0 Refills 01/19/24 Cholecalciferol (Vitamin D3) (Vitamin D3) 25 Mcg (1000 Unit) Capsule, 1 CAP PO DAILY for 30 Days, #30 CAP 0 Refills 01/19/24 Cetirizine HCl (Cetirizine HCl) 10 Mg Tablet, 10 MG PO BID, TAB 12/28/23 [Mvi] No Conflict Check, 1 TAB PO DAILY 12/28/23 [Magnesium] No Conflict Check, 1 TAB PO DAILY 12/28/23 Gabapentin (Neurontin) 100 Mg Capsule, 1 CAP PO TID for 30 Days, #90 CAP 0 Refills 12/28/23 Gabapentin (Gabapentin) 100 Mg Capsule, 200 MG PO HS, CAP 12/28/23 Atorvastatin Calcium (Atorvastatin Calcium) 40 Mg Tablet, 1 TAB PO HS for 30 Days, #30 TAB 0 Refills 12/28/23 Venlafaxine HCl (Venlafaxine HCl ER) 150 Mg Cap.er.24h, 1 CAP PO DAILY for 30 Days, #30 CAP 0 Refills 12/28/23 Clopidogrel Bisulfate (Clopidogrel) 75 Mg Tablet, 1 TAB PO DAILY for 30 Days, #30 TAB 0 Refills 12/28/23 Pantoprazole Sodium (Pantoprazole Sodium) 40 Mg Tablet.dr, 1 TAB PO DAILY for 30 Days, #30 TAB 0 Refills 12/28/23 Aspirin (ASPIRIN 81MG CHEW TAB) 81 Mg Tab.chew, 1 TAB PO DAILY for 30 Days, #30 TAB 0 Refills 12/28/23 Verapamil HCl (Verapamil ER) 120 Mg Cap24h.pel, 120 MG PO AM 09/22/20 Time spent arranging discharge: 31-60 minutes ATTESTATION BY PHYSICIAN I have seen and examined the patient. I reviewed the documentation, medical decision making, and treatment plan as noted by the mid-level provider above. I agree with the findings and plan of care. DEEP CELIS MD, [facility] Jan 20, 2024 11:28
--- NOTE | 2024-01-20 11:33 | DS ---
Discharge Summary Hospital Course Summary: 48-year-old male who presented to the emergency department with chief complaints of dizziness, nausea and palpitations, patient stated that he feels like his "heart is pumping fast. Patient also felt like his arms are numb. He stated that he was eating when it started. Patient was feeling okay yesterday no other complaints no no shortness of breaths no cough no fever no chills. Patient stated that he has Holter monitor from Dr. Shaver as he just saw him this past week for which they adjusted his verapamil from 120 now at 180 In the ED, his initial vitals showed temperature 98.8, pulse 72, respiratory rate 20, blood pressure 123/81, pulse oximetry 98% on room air. As per ED note, an EKG was done which showed normal sinus rhythm with ectopic beats, normal axis, good artery KUB, no STEMI which was interpreted by Dr. Curiel. Patient was recommended for admission for further monitoring/observation. Patient will be placed on telemetry. Patient was kept overnight and per report and patient's report he has not had any issues or episodes of palpitations. Patient's home medication has been reconciled and he has been evaluated by on-call judge clerk for which he was cleared from their standpoint and patient will need to follow up with Dr. Shaver in one week. Continue with the Holter monitor. Home medication continued. Patient has been discharged, he continues to be stable. Maintenance Job Titles(s): [facility] Procedure(s): [place] [address] [address] IMAGING REPORT Signed PATIENT: FARNAZ VASQUEZ JR MR#: [id number] : 1975 SEX: M AGE: 48 LOCATION: [facility] ORDER 1500 STATUS: REG ER REPORT#: [id number] SERVICE 1459 REASON: chest pain ORDERING PHYSICIAN: ROBI CURIEL DO PROCEDURE: CXR1VW - CHEST 1VW CHEST 1VW HISTORY: Chest pain COMPARISON: None FINDINGS: A frontal projection of the chest was obtained. Prominent interstitial markings are seen with possible superimposed infiltrates. The heart is borderline enlarged. Degenerative changes are seen. No evidence of aortic calcification is seen. IMPRESSION: 1. Prominent interstitial markings are seen with possible superimposed infiltrates. DICTATED BY: ANAIS QUINONES MD DATE: 01/19/241553 ELECTRONICALLY SIGNED BY: ANAIS QUINONES MD DATE: 01/19/241556 Assessment/Plan: Discharge diagnosis Admitting diagnosis [Palpitation with possible underlying AFib, POA AFib RVR, POA not sustaining Generalized weakness, POA Dizziness , POA Nausea, POA Mild rhabdomyolysis, POA Hyponatremia, POA Hypochloremia, POA ] PLAN: [Patient will be admitted in telemetry floor We will continue with tele monitoring We will request his home medications We will provide VTE prophylaxis Patient will be on gentle fluid hydration due to mild rhabdomyolysis We will monitor his kidney functions We will renally dose medication and avoid nephrotoxic We will continue with antiemetics GI prophylaxis We will repeat labs tomorrow We will trend troponin We will order12 lead in the morning 2D echo in a.m. If his symptoms persist we will consider Cardiology consult in a.m. Patient is a full code Discussed plan with the patient, he verbalized understanding and is in agreement with the plan Discussed case with attending physician, above plan was formulated ADVANCED CARE PLANNING 1. Which of the following were discussed? Hospice Care - Yes / No Therapeutic options - Yes / No Advance Directives - Yes / No Other discussions - 2. Discussed with who? Patient 3. Voluntary nature of this service was explained to the patient? Yes / No 4. Amount of time spent - __21 mins____ 5. Reviewed by Physician? (if this service was performed by NPP) Yes / No ] Discharge Instructions: [place] [address] [address] IMAGING REPORT Signed PATIENT: FARNAZ VASQUEZ JR MR#: [id number] : 1975 SEX: M AGE: 48 LOCATION: [facility] ORDER 1500 STATUS: REG ER REPORT#: [id number] SERVICE 1459 REASON: chest pain ORDERING PHYSICIAN: ROBI CURIEL DO PROCEDURE: CXR1VW - CHEST 1VW CHEST 1VW HISTORY: Chest pain COMPARISON: None FINDINGS: A frontal projection of the chest was obtained. Prominent interstitial markings are seen with possible superimposed infiltrates. The heart is borderline enlarged. Degenerative changes are seen. No evidence of aortic calcification is seen. IMPRESSION: 1. Prominent interstitial markings are seen with possible superimposed infiltrates. DICTATED BY: ANAIS QUINONES MD DATE: 01/19/241553 ELECTRONICALLY SIGNED BY: ANAIS QUINONES MD DATE: 01/19/241556 Home Medications: Active Scripts Propafenone HCl (Rythmol Sr) 225 Mg Cap.er.12h, 225 MG PO BID, #60 CAPSULE.DR 3 Refills Prov:MARCY VYAS MD 09/24/20 Reported Medications Escitalopram Oxalate (Escitalopram Oxalate) 10 Mg Tablet, 1 TAB PO DAILY for 30 Days, #30 TAB 0 Refills 01/19/24 Cholecalciferol (Vitamin D3) (Vitamin D3) 25 Mcg (1000 Unit) Capsule, 1 CAP PO DAILY for 30 Days, #30 CAP 0 Refills 01/19/24 Cetirizine HCl (Cetirizine HCl) 10 Mg Tablet, 10 MG PO BID, TAB 12/28/23 [Mvi] No Conflict Check, 1 TAB PO DAILY 12/28/23 [Magnesium] No Conflict Check, 1 TAB PO DAILY 12/28/23 Gabapentin (Neurontin) 100 Mg Capsule, 1 CAP PO TID for 30 Days, #90 CAP 0 Refills 12/28/23 Gabapentin (Gabapentin) 100 Mg Capsule, 200 MG PO HS, CAP 12/28/23 Atorvastatin Calcium (Atorvastatin Calcium) 40 Mg Tablet, 1 TAB PO HS for 30 Days, #30 TAB 0 Refills 12/28/23 Venlafaxine HCl (Venlafaxine HCl ER) 150 Mg Cap.er.24h, 1 CAP PO DAILY for 30 Days, #30 CAP 0 Refills 12/28/23 Clopidogrel Bisulfate (Clopidogrel) 75 Mg Tablet, 1 TAB PO DAILY for 30 Days, #30 TAB 0 Refills 12/28/23 Pantoprazole Sodium (Pantoprazole Sodium) 40 Mg Tablet.dr, 1 TAB PO DAILY for 30 Days, #30 TAB 0 Refills 12/28/23 Aspirin (ASPIRIN 81MG CHEW TAB) 81 Mg Tab.chew, 1 TAB PO DAILY for 30 Days, #30 TAB 0 Refills 12/28/23 Verapamil HCl (Verapamil ER) 120 Mg Cap24h.pel, 120 MG PO AM 09/22/20 Time spent arranging discharge: 31-60 minutes ATTESTATION BY PHYSICIAN I have seen and examined the patient. I reviewed the documentation, medical decision making, and treatment plan as noted by the mid-level provider above. I agree with the findings and plan of care. DEEP CELIS MD, JANICE B [facility] Jan 20, 2024 11:33
== END 2024-01-20 10:42 | disposition home or self-care (01) ==
LOC: EDH 14:51 → EDHIP 16:56 → INTOOBSV 16:56
PROVIDERS: ADMIT Internal Medicine; ATTEND Internal Medicine
DX: R00.2 Palpitations (principal); R11.0 Nausea; R42 Dizziness and giddiness; I48.91 Unspecified atrial fibrillation; R07.89 Other chest pain; E78.5 Hyperlipidemia, unspecified; E87.1 Hypo-osmolality and hyponatremia; E87.8 Other disorders of electrolyte and fluid balance, not elsewhere classified; I10 Essential (primary) hypertension; F43.10 Post-traumatic stress disorder, unspecified; M62.82 Rhabdomyolysis; Z79.899 Other long term (current) drug therapy; Z98.890 Other specified postprocedural states
CPT/HCPCS: 99285; 83036; 82550; 83735; 84484 ×4; 80061; 80048; 83880; 80305; 85025; 36415 ×2; 71045; 93005 ×2; 96372; 80053; 85027; G0378 ×18; J1650

== ENCOUNTER 2024-04-20 17:16 | Emergency (ER) | payer OTHER ==
[~2024-04-20] VITALS: Ht 188 cm; Wt 127.0 kg
[~2024-04-20 17:16] MED LIST changes: +CHOL100046 PO; +ESCI-8 PO
--- NOTE | 2024-04-20 17:40 | ERN ---
ED Note History of Present Illness Stated Complaint: STROKE LIKE SYMPTOMS Chief Complaint: Multiple Complaints Time Seen by MD: 17:21 Time Seen by Midlevel: 17:23 Dictation: Mr. Vasquez is a 48-year-old male with history of hypertension, hyperlipidemia, a trial fibrillation, GERD, migraine headaches, TIA who presented to the emergency department this evening for evaluation of stroke symptoms. He ambulated with steady gait into the facility. Patient uncooperative stating he can not answer questions because he does not feel well. Patient had been aggressive with triage nurse stating he could not answer questions or be examined because he was ill. He called the police department to complain about triage nurse stating he was a and he felt that we were not moving him to a bed fast enough. Initial blood pressure was elevated at 189/87 and heart rate was at 104. He complains of left-sided headache and numbness to his left cheek, left arm, and left leg. He was then taken to room 17 or I attempted examination. He was alert and oriented and answered questions with clears speech. He was able to move all extremities but continued to complain of paresthesia to the left side. Smile is symmetrical. He continues to complain of left-sided headache. He denies use of alcohol or recreational drugs. Patient is a nonsmoker. According to patient's symptoms began at approximately 4:30 p.m. when he stated he was not feeling well and went to go lay down. He was nauseated and had emesis x1. He complained of palpitations and rapid heart rate. Patient was admitted to [facility] last Sunday with similar symptoms and was discharged on afternoon. According to patient, he was told that he had a mini stroke. There was no change to his medication regimen. Patient does take Pradaxa twice daily with last dose today at 8:00 a.m.. He was scheduled to have an ablation for atrial fibrillation sometime last week but it was canceled due to his hospital admission. He denies chest pain, shortness of breath, cough, abdominal pain, nausea, vomiting, diarrhea, melena, hematochezia, hematemesis, vision changes, difficulty speaking, difficulty swallowing, or focal weakness. Stroke alert was activated and patient immediately taken to CT. Allergies: Coded Allergies: No Known Drug Allergies (Unverified Allergy, Unknown, 09/20/20) Emergency Care DRY PLASTERER: None Home Meds Active Scripts Propafenone HCl (Rythmol Sr) 225 Mg Cap.er.12h, 225 MG PO BID, #60 CAPSULE.DR 3 Refills Prov:MARCY VYAS MD 09/24/20 Reported Medications Escitalopram Oxalate (Escitalopram Oxalate) 10 Mg Tablet, 1 TAB PO DAILY for 30 Days, #30 TAB 0 Refills 01/19/24 Cholecalciferol (Vitamin D3) (Vitamin D3) 25 Mcg (1000 Unit) Capsule, 1 CAP PO DAILY for 30 Days, #30 CAP 0 Refills 01/19/24 Cetirizine HCl (Cetirizine HCl) 10 Mg Tablet, 10 MG PO BID, TAB 12/28/23 [Mvi] No Conflict Check, 1 TAB PO DAILY 12/28/23 [Magnesium] No Conflict Check, 1 TAB PO DAILY 12/28/23 Gabapentin (Neurontin) 100 Mg Capsule, 1 CAP PO TID for 30 Days, #90 CAP 0 Refills 12/28/23 Gabapentin (Gabapentin) 100 Mg Capsule, 200 MG PO HS, CAP 12/28/23 Atorvastatin Calcium (Atorvastatin Calcium) 40 Mg Tablet, 1 TAB PO HS for 30 Days, #30 TAB 0 Refills 12/28/23 Venlafaxine HCl (Venlafaxine HCl ER) 150 Mg Cap.er.24h, 1 CAP PO DAILY for 30 Days, #30 CAP 0 Refills 12/28/23 Clopidogrel Bisulfate (Clopidogrel) 75 Mg Tablet, 1 TAB PO DAILY for 30 Days, #30 TAB 0 Refills 12/28/23 Pantoprazole Sodium (Pantoprazole Sodium) 40 Mg Tablet.dr, 1 TAB PO DAILY for 30 Days, #30 TAB 0 Refills 12/28/23 Aspirin (ASPIRIN 81MG CHEW TAB) 81 Mg Tab.chew, 1 TAB PO DAILY for 30 Days, #30 TAB 0 Refills 12/28/23 Verapamil HCl (Verapamil ER) 120 Mg Cap24h.pel, 120 MG PO AM 09/22/20 Past Medical History Past Medical History: A-Fib, High Cholesterol, Hypertension, TIA Additional Past Medical Hx: VERTIGO AND PTSD Surgical History: Unknown Surgical History Other: ABLATION PSYCH History: post traumatic stress Social History: Lives with family (; lives with ) RN Note Reviewed/Agreed w/PFSH: Yes Review of System Dictation REVIEW OF SYSTEMS: CONSTITUTIONAL: Patient denies fevers, chills, sweats and weight changes. States I just do not feel good EYES: Patient denies any visual symptoms. EARS, NOSE, AND THROAT: No difficulties with hearing. No symptoms of rhinitis or sore throat. CARDIOVASCULAR: Patient denies chest pains, orthopnea and paroxysmal nocturnal dyspnea. Reports palpitations. History of atrial fibrillation. Patient on chronic anticoagulation; Pradaxa (last dose 0800 today) RESPIRATORY: No dyspnea on exertion, no wheezing or cough. GI: No diarrhea, constipation, abdominal pain, hematochezia or melena. Reported nausea with emesis x1 denies bleeding : No urinary hesitancy or dribbling. No nocturia or urinary frequency. No abnormal urethral discharge. MUSCULOSKELETAL: No myalgias or arthralgias. NEUROLOGIC: no seizures. . Patient denies focal weakness. Patient reports left-sided headache. He denies photophobia/phonophobia. Patient reports numbness to the left side of face, left arm, and left leg. Patient states he has a history of migraine headaches PSYCHIATRIC: Patient denies problems with mood disturbance. No problems with anxiety. History PTSD ENDOCRINE: No excessive urination or excessive thirst. DERMATOLOGIC: Patient denies any rashes or skin changes. Initial Vital Sign VS Vital Signs Date Time Temp Pulse Resp B/P (MAP) Pulse Ox O2 Delivery O2 Flow Rate FiO2 04/20/24 17:24 98.8 104 20 189/87 98 Room Air 0 04/20/24 17:54 21 Physical Exam Dictation Vital signs: Reviewed. Constitutional: Moderate distress. Patient agitated Head/Face: Normocephalic, atraumatic. Eyes: Periorbital areas with no swelling, redness, or edema. Lids and lashes are normal. Conjunctival injection is absent. Sclera anicteric. Pupils equal, rou nd, 2mm ENT: Pinnas intact and no signs of trauma or erythema. Ear canals clear and no discharge. TMs no erythema. No nasal discharge or bleeding noted. Oropharynx with no exudate, redness, swelling, masses, exudates, or evidence of obstruction. Uvula midline. Mucous membranes moist. Neck: Trachea midline, no masses palpated, and no cervical lymphadenopathy. No swelling. Supple, full range of motion. Chest/Axilla: No tenderness, no crepitus, no paradoxical movement, no retractions. Cardiovascular: Regular rate, regular rhythm, no murmur, no gallops. Symmetric pulses. No peripheral edema. Initial blood pressure 189/87. Initial heart rate 104. Twelve lead EKG reflects a sinus rhythm without ST elevation or depression. Respiratory: Respirations even and unlabored. Lung sounds clear; no wheezes, rales or rhonchi. Room air SpO2 99% Gastrointestinal: Obese. No distention is appreciated. Bowel sounds are normal. No mass or organomegaly . There is no tenderness. No rebound. No rigidity. No voluntary or involuntary guarding. No Verma's sign. Neurological: Normal speech, gross motor function intact, gross sensory function intact. No dysphasia, no dysarthria. NIHSS=5. Difficult assessment due to patient minimally cooperative. Last known well time 4:30 p.m. Musculoskeletal/Extremities: All extremities have full range of motion, no pain or tenderness on palpation. Symmetric pulses. Integumentary: Intact. Skin is normal color, warm and dry. Cap refill less than 3 seconds. Results (Laboratory/Radiology) Laboratory/Radiology Laboratory Tests Test 04/20/24 17:52 04/20/24 18:16 White Blood Count 9.6 K/uL (4.8-10.8) Red Blood Count 4.32 MIL/uL (4.50-6.20) L Hemoglobin 13.1 g/dL (14.0-18.0) L Hematocrit 39.5 % (42-54) L Mean Corpuscular Volume 91.4 fL (79-99) Mean Corpuscular Hemoglobin 30.3 pg (27.0-33.0) Mean Corpuscular Hemoglobin Concent 33.2 g/dL (32.0-36.0) Red Cell Distribution Width 12.4 % (11.0-15.5) Platelet Count 318 K/uL (130-400) Mean Platelet Volume 8.7 fL (7.5-10.5) Immature Granulocyte % (Auto) 1.1 % (0-1) H Neutrophils (%) (Auto) 55.8 % (40.0-77.0) Lymphocytes (%) (Auto) 31.5 % (21.0-51.0) Monocytes (%) (Auto) 9.3 % (3.0-13.0) Eosinophils (%) (Auto) 1.7 % (0.0-8.0) Basophils (%) (Auto) 0.6 % (0.0-5.0) Neutrophils # (Auto) 5.4 K/uL (1.8-7.7) Lymphocytes # (Auto) 3.0 K/uL (1.0-4.8) Monocytes # (Auto) 0.9 K/uL (0.1-1.0) Eosinophils # (Auto) 0.16 K/uL (0.00-0.70) Basophils # (Auto) 0.06 K/uL (0.00-0.20) Absolute Immature Granulocyte (auto 0.11 K/uL (0-1) Nucleated Red Blood Cells 0.0 % (0.0-0.19) Prothrombin Time 10.5 SEC (9.6-11.6) Prothromb Time International Ratio <= 0.93 (0.85-1.15) Activated Partial Thromboplast Time 29.8 SEC (26.3-35.5) Sodium Level 141 mmol/L (136-145) Potassium Level 3.9 mmol/L (3.5-5.1) Chloride Level 103 mmol/L (101-111) Carbon Dioxide Level 28 mmol/L (21-32) Blood Urea Nitrogen 15 mg/dL (7-18) Creatinine 1.2 mg/dL (0.5-1.3) Glomerular Filtration Rate Calc 75 mL/min (>90) Random Glucose 143 mg/dL (70-105) H Total Calcium 8.4 mg/dL (8.5-10.1) L Total Creatine Kinase 159 U/L (21-232) # Troponin I High Sensitivity 6 ng/L (4-75) B-Type Natriuretic Peptide 6 pg/mL (0-100) LDL Cholesterol 83 mg/dL (0-99) Serum Alcohol < 2 mg/dL (0-10) Urine Color COLORLESS (YELLOW) Urine Appearance CLEAR (CLEAR) Urine pH 6.0 (5.0-8.0) Urine Specific [place] 1.002 (1.001-1.031) Urine Protein NEGATIVE mg/dL (NEGATIVE) Urine Glucose (UA) NEGATIVE mg/dL (NEGATIVE) Urine Ketones NEGATIVE mg/dL (NEGATIVE) Urine Occult Blood NEGATIVE (NEGATIVE) Urine Nitrate NEGATIVE (NEGATIVE) Urine Bilirubin NEGATIVE mg/dL (NEGATIVE) Urine Urobilinogen 0.2 mg/dL (0.2-1.0) Urine Leukocyte Esterase NEGATIVE Mariano/uL Urine RBC None /HPF (0-1) Urine WBC 0-1 /HPF (0-1) Urine Bacteria None /HPF (None Seen) Urine Opiates Screen NEGATIVE (NEGATIVE) Urine Barbiturates Screen NEGATIVE (NEGATIVE) Urine Phencyclidine Screen NEGATIVE (NEGATIVE) Urine Amphetamines Screen NEGATIVE (NEGATIVE) Urine Benzodiazepines Screen NEGATIVE (NEGATIVE) Urine Cocaine Screen NEGATIVE (NEGATIVE) Urine Marijuana (THC) Screen NEGATIVE (NEGATIVE) Labs Reviewed?: Yes EKG: (+) NSR EKG Comment: EKG Interpretation: Time Reviewed: 1803 Ventricular rate: 94 bpm TN Interval: 64 ms QRS duration: 93 ms Clinical impression: Sinus rhythm; rate [address] elevation or depression EKG Reviewed and interpreted by Dr Villagomez X-RAY Comment: PATIENT: FARNAZ VASQUEZ JR MR#: [id number] : 1975 SEX: M AGE: 48 LOCATION: [facility] ORDER 34 STATUS: REG ER [facility] REPORT#: [id number] SERVICE 31 REASON: stroke ORDERING PHYSICIAN: VIANEY TROY NP PROCEDURE: CXR1VW - CHEST 1VW CHEST 1VW CLINICAL HISTORY: stroke COMPARISON: 01/19/2024 TECHNIQUE: Single view of the chest was obtained. FINDINGS: Lungs are clear. The cardiac size and mediastinum are unremarkable. The bony structures are within normal limits. IMPRESSION: No acute cardiopulmonary process identified. DICTATED BY: MORAIMA EDDY DO DATE: 04/20/241900 ELECTRONICALLY SIGNED BY: MORAIMA EDDY DO DATE: 04/20/241902 CT Scan Comment: PATIENT: FARNAZ VASQUEZ JR MR#: [id number] : 1975 SEX: M AGE: 48 LOCATION: [facility] ORDER 34 STATUS: REG ER REPORT#: [id number] SERVICE 31 REASON: headache, vomiting, left paresthesia ORDERING PHYSICIAN: VIANEY TROY NP PROCEDURE: HEAD WO - CT HEAD/BRAIN W/O CONTRAST CT HEAD/BRAIN W/O CONTRAST CLINICAL HISTORY: headache, vomiting, left paresthesia COMPARISON: None PATIENT: FARNAZ VASQUEZ JR MR#: [id number] : 1975 SEX: M AGE: 48 LOCATION: [facility] ORDER 08 STATUS: REG ER REPORT#: [id number] SERVICE 07 REASON: Left sided headache, left sided paresthesia ORDERING PHYSICIAN: VIANEY TROY NP PROCEDURE: BRAIN WO - MR BRAIN WO CON MR BRAIN WO CON HISTORY: Left sided headache, left sided paresthesia COMPARISON: None TECHNIQUE: Multiphase multiplanar MRI of the brain performed on a 1.5 Paty magnet without enhancement. FINDINGS: There is no identified areas of diffusion restriction. The brain parenchyma and CSF spaces appear unremarkable. The orbital contents paranasal sinuses and mastoid air cells are unremarkable. The optic chiasm and pituitary are unremarkable. There is no identified cerebellar tonsillar herniation. IMPRESSION: Normal study. DICTATED BY: MORAIMA EDDY DO DATE: 04/20/241943 ELECTRONICALLY SIGNED BY: MORAIMA EDDY DO DATE: 04/20/241951 PATIENT: FARNAZ VASQUEZ JR MR#: [id number] : 1975 SEX: M AGE: 48 LOCATION: [facility] ORDER 12 STATUS: [facility] ER REPORT#: [id number] SERVICE 10 REASON: cva symptoms ORDERING PHYSICIAN: VIANEY TROY NP PROCEDURE: CTA HEDNEC - CT ANGIO HEAD AND NECK CT ANGIO HEAD AND NECK REASON: cva symptoms TECHNIQUE: Images were obtained from thoracic inlet through the vertex of the skull before and after bolus IV infusion of 100 ml of Isovue 350. 2D and 3D multiplanar reconstruction images were obtained in the head and neck. CT was performed with one or more of the following dose reduction techniques: automated exposure control, adjustment of the mA and/or kV according to patient size, or use of iterative reconstruction technique FINDINGS: Post contrast images in the neck show normal-appearing common and internal carotid arteries. Bifurcations appear unremarkable. There is no evidence of atherosclerotic change or focal narrowing. Images in the brain demonstrate normal-appearing internal carotid arteries. Anterior, middle and posterior cerebral arteries appear normal. Posterior fossa vessels are unremarkable as well. There is no evidence of aneurysm or AVM. There is no evidence of focal vessel occlusion. IMPRESSION: Normal CT angiography of the head and neck. DICTATED BY: MORAIMA EDDY DO DATE: 04/20/24 191 ELECTRONICALLY SIGNED BY: MORAIMA EDDY DO DATE: 04/20/24 192 TECHNIQUE: Multiple sequential axial images of the head were obtained from the base of the skull through vertex. CT was performed with one or more of the following dose reduction techniques: automated exposure control, adjustment of the mA and/or kV according to patient size, or use of iterative reconstruction technique FINDINGS: The brain parenchyma and CSF spaces are unremarkable. The orbital contents, paranasal sinuses and mastoid air cells are within normal limits. The calvarium is intact. IMPRESSION: Normal study DICTATED BY: MORAIMA EDDY DO DATE: 04/20/24 175 ELECTRONICALLY SIGNED BY: MORAIMA EDDY DO DATE: 04/20/24 1804 ED Course ED Course Orders Procedure Category Date Status Time Cbc With Differential LAB 04/20/24 Complete 17:32 Prothrombin Time With LAB 04/20/24 Complete INR 17:32 Partial LAB 04/20/24 Complete Thromboplastin Time 17:32 Ct Head/Brain W/O CT 04/20/24 Resulted Contrast 17:32 Chest 1vw RAD 04/20/24 Resulted 17:32 12 Lead Ekg Tracing- EKG 04/20/24 Logged Technical 17:32 Creatine Kinase, Total LAB 04/20/24 Complete 17:32 Ldl Direct LAB 04/20/24 Complete 17:32 Troponin I High LAB 04/20/24 Complete Sensitivity 17:32 Urinalysis Profile LAB 04/20/24 Complete 17:32 B-Type Natriuretic LAB 04/20/24 Complete Peptide 17:32 Bedside Glucose CPOE 04/20/24 Transmitted Fingerstick 17:32 Basic Metabolic Panel LAB 04/20/24 Complete 17:32 Alcohol, Blood LAB 04/20/24 Complete 17:32 Drug Screen Urine LAB 04/20/24 Complete 17:32 0.9% Nacl 500ml PHA 04/20/24 Complete Iv.Soln (Ns 500ml 18:30 Mr Brain Wo Con MRI 04/20/24 Resulted 18:08 Prochlorperazine PHA 04/20/24 Complete 10mg/2ml Inj 18:30 Ketorolac PHA 04/20/24 Complete Tromethamine 30mg/Ml 18:30 Diphenhydramine Hcl PHA 04/20/24 Complete (Benadryl Inj) 18:30 Ct Angio Head And Neck CT 04/20/24 Resulted 18:11 Iohexol (Omnipaque) PHA 04/20/24 Complete 18:14 Current Medications Medications (Trade) Dose Ordered Sig/Warren Route PRN Reason Start Time Stop Time Status Last Admin Dose Admin Diphenhydramine HCl (BENAdryl INJ) 25 mg ONCE ONCE IV 04/20/24 18:30 04/20/24 18:31 DC 04/20/24 18:38 Iohexol (Omnipaque) 35,000 mg STK-MED ONCE IV 04/20/24 18:14 04/20/24 18:14 DC Ketorolac Tromethamine (toRADol) 30 mg ONCE ONCE IVP 04/20/24 18:30 04/20/24 18:31 DC 04/20/24 18:38 Prochlorperazine Edisylate (Compazine 10mg/ 2ml Inj) 10 mg ONCE ONCE IV 04/20/24 18:30 04/20/24 18:31 DC 04/20/24 18:39 Sodium Chloride 500 ml @ 0 mls/hr ONCE ONCE IV 04/20/24 18:30 04/20/24 18:31 DC 04/20/24 18:39 Vital Signs Date Time Temp Pulse Resp B/P (MAP) Pulse Ox O2 Delivery O2 Flow Rate FiO2 04/20/24 17:54 97.9 93 22 143/89 95 Room Air* 0 21 04/20/24 17:24 98.8 104 20 189/87 98 Room Air 0 Code Stroke activated at 5:[address] scan of the brain negative for hemorrhage. BP decreased to 143/89. Twelve lead EKG reflects a sinus rhythm without ST elevation or depression. At [address]Mario Filemon Castillo who recommends continue with CTA head and neck and perform MRI. Treat at this time as complex migraine with Benadryl 25, Compazine 10, and Toradol 30. Ischemic stroke unlikely has patient is currently receiving Pradaxa. Patient states last dose of Pradaxa today at 8:00 a.m.. CXR unremarkable; lung zamora are clear. CTA head/neck revealed no large vessel occlusion; normal study. Laboratory findings as noted below. UDS and ETOH are negative. UA is clear. H/H 13.1/39.5, glucose 143, Ca 8.4, and CK 159. Troponin is negative. MRI of the brain without contrast read as normal. After receiving medication and NS bolus, symtoms resolved. NIHSS=0 and headache has resolved. Patient is cooperative and pleasant. Discussed findings with both patient and his . He will continue his current medications and follow up with at [facility] Medical Decision Making MDM MDM: Differential diagnosis: Hemorrhagic stroke, ischemic stroke, complex migraine Rationale: Tests considered and ordered secondary to shared decision making include: Labs, EKG, CT, CTA, MRI Previous outside records reviewed: Old ER visits. Risk of complication and/or morbidity or mortality of patient management: None Medications-Per medication reconciliation Need for hospitalization: Patient does not meet criteria for hospitalization. Need for emergency major/minor surgery: No There are no social concerns with this patient. Prescription drug management: N/A Prescriptions will include symptomatic care Patient's prior external medical records from other ER visits were reviewed by me as indicated. Prior testing and results from previous visits were reviewed. Prior tests were taken into account with medical decision making and resource utilization, independent historian/historians were used to obtain complete medical history. I independently interpreted the test that were performed, results were reviewed by me and considered findings on radiology if ordered. Medical management and examination interpretation discussions were had by me with other qualified healthcare professionals as indicated for the patient's care. NIH STROKE SCALE: NIH STROKE SCALE Response (Comments) Value Level of Consciousness Alert 0 Ask patient month and their age Answers both correct 0 Command to open eyes, make fist and let go Obeys both correct 0 Best gaze (horizontal eye movement) Normal 0 Visual Field Testing No Visual Field Loss 0 Facial Paresis Normal / Symmetrical 0 Motor Function - Left Arm Drift 1 Motor Function - Right Arm Normal 0 Motor Function - Left Leg Drift 1 Motor Function - Right Leg Normal 0 Limb Ataxia Present in 2 limbs 2 Sensory-pin prick to arms, legs, trunk and face Mild to Moderate Decrease 1 Best Language (describe picture, name items and read) No Aphasia 0 Dysarthria (read several words) Normal Articulation 0 Extinction and Inattention Normal 0 Total 5 DX & DISP Disposition: Discharge Departure Impression: Primary Impression: Migraine headache Condition: Stable Additional Instructions: Rest. Drink plenty of fluids. Keep a log of your headache/migraine symptoms. Keep a log of your blood pressure readings. Continue your current medication regimen. You will need to follow up with at [facility] in the next 1-2 days (bring headache and blood pressure logs as well as imaging study reports, EKG, and lab results from this visit. Return to the emergency dep artment for any worsening of symptoms or concerns Referrals: TONY PARHAM (PCP) VIANEY TORY NP Apr 20, 2024 17:40
--- NOTE | 2024-04-20 17:53 | NUR ---
I TOOK PT TO AND FROM CT SCAN. PT IS BEING VERY UNCOOPERATIVE. HE REFUSES TO ANSWER QUESTIONS AND MOVE WHEN ASKED FOR ASSESSMENT PURPOSES. I ASKED HIS SIGNIFICANT OTHER IF HE IS GENERALLY UNCOOPERATIVE, BUT SHE SAYS EVERY TIME HE HAS AN "EPISODE" THAT SHE IS AT WORK.
[2024-04-20 17:54] VITALS: TEMP 97.9
--- NOTE | 2024-04-20 17:56 | NUR ---
1730 PT PLACED IN ROOM BY W/C WITH KELBY RN COMING FROM TRIAGE ROOM, GIVEN REPORT BY CHARGE NURSE PIERO CHU, PT REFUSED TO BE ASSESSED IN TRIAGE, PT IS ANGRY STATED (WHY WE DID NOT TAKE HIM IN RIGHT AWAY TO A ROOM IN THE BACK HIS BLOOD PRESSURE IS HIGH HE IS A !), PT THEN REFUSED TO CONTINUE TRIAGE QUESTIONS, PT BROUGHT BACK TO ROOM. REYMUNDO CHU CHARGE NURSE SPOKE TO PT, PT REFUSING TO ANSWER HIM, PT WONT LOOK AT US OR OPEN HIS EYE WHEN WE TALK TO HIM. YAIR SLUBBER FRAME CHANGER IN ROOM WITH PT AT 1740, PT TAKEN TO RAD WITH CT SCAN, GLUCOSE CHECK DONE.
--- NOTE | 2024-04-20 17:56 | NUR ---
[employer]: JUST ARRIVED AT BEDSIDE AT PT BEHEST D/T HIM FEELING WE WERE NOT FAST ENOUGH IN GETTING HIM TO A ROOM WHEN HE REFUSED TO ALLOW THE TRIAGE NURSE TRIAGE HIM
[2024-04-20 17:58] LABS: BASOPHILS # (AUTO) 0.06 K/uL (0.00-0.20); BASOPHILS % (AUTO) 0.6 % (0.0-5.0); EOSINOPHILS # (AUTO) 0.16 K/uL (0.00-0.70); EOSINOPHILS % (AUTO) 1.7 % (0.0-8.0); HEMATOCRIT 39.5 % (42-54); IMMATURE GRANULOCYTE ABSOLUTE 0.11 K/uL (0-1); LYMPHOCYTES % (AUTO) 31.5 % (21.0-51.0); MEAN CORPUSCULAR HEMOGLOBIN 30.3 pg (27.0-33.0); MEAN CORPUSCULAR HGB CONC 33.2 g/dL (32.0-36.0); MEAN CORPUSCULAR VOLUME 91.4 fL (79-99); MONOCYTES # (AUTO) 0.9 K/uL (0.1-1.0); MONOCYTES % (AUTO) 9.3 % (3.0-13.0); NEUTROPHILS # (AUTO) 5.4 K/uL (1.8-7.7); NEUTROPHILS % (AUTO) 55.8 % (40.0-77.0); PLATELET COUNT (AUTO) 318 K/uL (130-400); RED BLOOD CELL COUNT(AUTO) 4.32 MIL/uL (4.50-6.20); RED CELL DISTRIBUTION WIDTH 12.4 % (11.0-15.5); WHITE BLOOD COUNT (AUTO) 9.6 K/uL (4.8-10.8)
--- NOTE | 2024-04-20 17:59 | NUR ---
6767 CHARGE NURSE PIERO CHU INFORMED ME IN REPORT PT UPSET, THREATENED KELBY CHU IN TRIAGE STATED ( HE WOULD CALL POLICE BECAUSE WE DID NOT GET HIM INTO A ROOM RIGHT AWAY!)
--- NOTE | 2024-04-20 18:04 | HMCIMG ---
CT HEAD/BRAIN W/O CONTRAST CLINICAL HISTORY: headache, vomiting, left paresthesia COMPARISON: None TECHNIQUE: Multiple sequential axial images of the head were obtained from the base of the skull through vertex. CT was performed with one or more of the following dose reduction techniques: automated exposure control, adjustment of the mA and/or kV according to patient size, or use of iterative reconstruction technique FINDINGS: The brain parenchyma and CSF spaces are unremarkable. The orbital contents, paranasal sinuses and mastoid air cells are within normal limits. The calvarium is intact. IMPRESSION: Normal study
[2024-04-20 18:07] LABS: CARBON DIOXIDE 28 mmol/L (21-32); CHLORIDE 103 mmol/L (101-111); CREATININE 1.2 mg/dL (0.5-1.3); GLOMERULAR FILTR. RATE CALC 75 mL/min (>90); GLUCOSE,RANDOM 143 mg/dL (70-105); POTASSIUM 3.9 mmol/L (3.5-5.1); SODIUM SERUM 141 mmol/L (136-145); UREA NITROGEN, BLOOD 15 mg/dL (7-18)
[2024-04-20 18:08] LABS: INR <= 0.93 (0.85-1.15); PROTHROMBIN TIME 10.5 SEC (9.6-11.6)
[2024-04-20 18:10] LABS: PARTIAL THROMBOPLASTIN TIME 29.8 SEC (26.3-35.5)
[2024-04-20 18:12] LABS: CREATINE KINASE, TOTAL 159 U/L (21-232); LDL DIRECT 83 mg/dL (0-99)
[2024-04-20] MEDS ORDERED: IOHEXOL 350 MG/ML 100ML INFUS..BTL IV ONE (18:14)
[2024-04-20 18:17] LABS: ALCOHOL, BLOOD < 2 mg/dL (0-10)
[2024-04-20 18:18] LABS: B-TYPE NATRIURETIC PEPTIDE 6 pg/mL (0-100)
[2024-04-20 18:31] LABS: APPEARANCE,URINE CLEAR (CLEAR); BILIRUBIN,URINE NEGATIVE (NEGATIVE); COLOR,URINE COLORLESS (YELLOW); GLUCOSE, URINE (UA) NEGATIVE (NEGATIVE); KETONES,URINE NEGATIVE (NEGATIVE); LEUKOCYTE ESTERASE ,URINE NEGATIVE Leu/uL (NEGATIVE); NITRATE,URINE NEGATIVE (NEGATIVE); OCCULT BLOOD,URINE NEGATIVE (NEGATIVE); PROTEIN,URINE NEGATIVE (NEGATIVE); UROBILINOGEN,URINE 0.2 mg/dL (0.2-1.0)
[2024-04-20 18:32] LABS: ADD UA MICROSCOPIC YES; WBC,URINE 0-1 /HPF (0-1)
[2024-04-20] MEDS: ketOROlac 30MG VIAL (30MG/ML) IVP ONE (18:38)
[2024-04-20] MEDS: DiphenhydrAMINE HCL 50 MG/ML VIAL IV ONE (18:38)
[2024-04-20 18:39] LABS: AMPHET/METH SCREEN,URINE NEGATIVE (NEGATIVE); BARBITURATE SCREEN, URINE NEGATIVE (NEGATIVE); BENZODIAZEPINES SCREEN,URINE NEGATIVE (NEGATIVE); CANNABINOID SCREEN,URINE NEGATIVE (NEGATIVE); COCAINE SCREEN,URINE NEGATIVE (NEGATIVE); OPIATE SCREEN,URINE NEGATIVE (NEGATIVE); PHENCYCLIDINE SCREEN,URINE NEGATIVE (NEGATIVE)
[2024-04-20] MEDS: 0.9% NACL 500ML IV.SOLN 500 ML IV ONE (18:39)
[2024-04-20] MEDS: PROCHLORPERAZINE 10MG/2ML INJ IV ONE (18:39)
--- NOTE | 2024-04-20 19:03 | HMCIMG ---
CHEST 1VW CLINICAL HISTORY: stroke COMPARISON: 01/19/2024 TECHNIQUE: Single view of the chest was obtained. FINDINGS: Lungs are clear. The cardiac size and mediastinum are unremarkable. The bony structures are within normal limits. IMPRESSION: No acute cardiopulmonary process identified.
--- NOTE | 2024-04-20 19:20 | HMCIMG ---
CT ANGIO HEAD AND NECK REASON: cva symptoms TECHNIQUE: Images were obtained from thoracic inlet through the vertex of the skull before and after bolus IV infusion of 100 ml of Isovue 350. 2D and 3D multiplanar reconstruction images were obtained in the head and neck. CT was performed with one or more of the following dose reduction techniques: automated exposure control, adjustment of the mA and/or kV according to patient size, or use of iterative reconstruction technique FINDINGS: Post contrast images in the neck show normal-appearing common and internal carotid arteries. Bifurcations appear unremarkable. There is no evidence of atherosclerotic change or focal narrowing. Images in the brain demonstrate normal-appearing internal carotid arteries. Anterior, middle and posterior cerebral arteries appear normal. Posterior fossa vessels are unremarkable as well. There is no evidence of aneurysm or AVM. There is no evidence of focal vessel occlusion. IMPRESSION: Normal CT angiography of the head and neck.
--- NOTE | 2024-04-20 19:52 | HMCIMG ---
MR BRAIN WO CON HISTORY: Left sided headache, left sided paresthesia COMPARISON: None TECHNIQUE: Multiphase multiplanar MRI of the brain performed on a 1.5 Paty magnet without enhancement. FINDINGS: There is no identified areas of diffusion restriction. The brain parenchyma and CSF spaces appear unremarkable. The orbital contents paranasal sinuses and mastoid air cells are unremarkable. The optic chiasm and pituitary are unremarkable. There is no identified cerebellar tonsillar herniation. IMPRESSION: Normal study.
[2024-04-20 20:05] VITALS: BP 106/65; PULSE 88; RESP 20; O2SAT 98
--- NOTE | 2024-04-21 06:48 | EKG ---
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
== END 2024-04-20 20:47 | disposition home or self-care (01) ==
LOC: EDH 17:16
DX: G43.909 Migraine, unspecified, not intractable, without status migrainosus (principal); I48.91 Unspecified atrial fibrillation; I10 Essential (primary) hypertension; F43.10 Post-traumatic stress disorder, unspecified; E78.00 Pure hypercholesterolemia, unspecified; Z79.02 Long term (current) use of antithrombotics/antiplatelets; Z79.82 Long term (current) use of aspirin; Z79.899 Other long term (current) drug therapy; Z86.73 Personal history of transient ischemic attack (TIA), and cerebral infarction without residual deficits
CPT/HCPCS: 99285; 70450; 70551; 96374; 96375; 71045; 82550; 83721; 84484; 80048; 83880; 80305; 85025; 85610; 85730; 82948; 81001; 36415; 70496; 70498; 93005; J1885; J1200; J0780; Q9967

== ENCOUNTER → 2024-06-26 | Outpatient (CLI) | payer OTHER ==
[~2024-06-26] VITALS: Ht 182.9 cm; Wt 119.0 kg
[~2024-06-26] MED LIST changes: +DABI150C PO; +MELA3TAB69 PO; +PROP325C17 PO; +VERA240T95 PO; +VERA80TA10 PO
[2024-06-26 10:00] LABS: BASOPHILS # (AUTO) 0.03 K/uL (0.00-0.20); BASOPHILS % (AUTO) 0.3 % (0.0-5.0); IMMATURE GRANULOCYTE ABSOLUTE 0.07 K/uL (0-1); LYMPHOCYTES # (AUTO) 1.9 K/uL (1.0-4.8); MEAN CORPUSCULAR HEMOGLOBIN 30.5 pg (27.0-33.0); MEAN CORPUSCULAR HGB CONC 33.8 g/dL (32.0-36.0); MEAN CORPUSCULAR VOLUME 90.1 fL (79-99); NEUTROPHILS # (AUTO) 8.9 K/uL (1.8-7.7); NEUTROPHILS % (AUTO) 75.1 % (40.0-77.0); PLATELET COUNT (AUTO) 272 K/uL (130-400); RED BLOOD CELL COUNT(AUTO) 4.66 MIL/uL (4.50-6.20); RED CELL DISTRIBUTION WIDTH 12.3 % (11.0-15.5); WHITE BLOOD COUNT (AUTO) 11.9 K/uL (4.8-10.8)
[2024-06-26 10:07] LABS: CREATININE 1.2 mg/dL (0.5-1.3); POTASSIUM 4.1 mmol/L (3.5-5.1)
[2024-06-26 10:14] LABS: INR 1.11 (0.85-1.15); PROTHROMBIN TIME 11.6 SEC (9.6-11.6)
[2024-06-26 10:16] LABS: PARTIAL THROMBOPLASTIN TIME 36.7 SEC (26.3-35.5)
[2024-06-26 10:31] VITALS: BP 120/66; PULSE 83; RESP 17; TEMP 98.1
--- NOTE | 2024-06-26 11:35 | EKG ---
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
== END | disposition home or self-care (01) ==
LOC: DAH 09:15 → EDSTATUS 14:00
PROVIDERS: ATTEND Internal Medicine Cardiovascular Disease
DX: Z01.818 Encounter for other preprocedural examination (principal); I48.3 Typical atrial flutter; I48.4 Atypical atrial flutter; I47.10 Supraventricular tachycardia, unspecified; I48.0 Paroxysmal atrial fibrillation
CPT/HCPCS: 36415; 80048; 85025; 85610; 85730; 93005

== ENCOUNTER 2024-07-14 22:33 | Emergency (ER) | payer OTHER ==
[~2024-07-14] VITALS: Ht 182.9 cm; Wt 99.8 kg
[~2024-07-14 22:33] MED LIST changes: -ASPI-1005 PO; -CHOL100046 PO; -CLOP75TA32 PO; -ESCI-8 PO; -GABA100C PO; -PROP225C11 PO; -VERA120C2 PO
[2024-07-14 23:08] LABS: BASOPHILS # (AUTO) 0.04 K/uL (0.00-0.20); BASOPHILS % (AUTO) 0.5 % (0.0-5.0); EOSINOPHILS # (AUTO) 0.19 K/uL (0.00-0.70); EOSINOPHILS % (AUTO) 2.3 % (0.0-8.0); HEMATOCRIT 41.3 % (42-54); IMMATURE GRANULOCYTE ABSOLUTE 0.08 K/uL (0-1); LYMPHOCYTES # (AUTO) 2.5 K/uL (1.0-4.8); LYMPHOCYTES % (AUTO) 30.4 % (21.0-51.0); MEAN CORPUSCULAR HEMOGLOBIN 30.6 pg (27.0-33.0); MEAN CORPUSCULAR HGB CONC 33.7 g/dL (32.0-36.0); MONOCYTES # (AUTO) 0.9 K/uL (0.1-1.0); MONOCYTES % (AUTO) 10.5 % (3.0-13.0); NEUTROPHILS # (AUTO) 4.6 K/uL (1.8-7.7); NEUTROPHILS % (AUTO) 55.3 % (40.0-77.0); PLATELET COUNT (AUTO) 235 K/uL (130-400); RED BLOOD CELL COUNT(AUTO) 4.54 MIL/uL (4.50-6.20); RED CELL DISTRIBUTION WIDTH 12.3 % (11.0-15.5); WHITE BLOOD COUNT (AUTO) 8.3 K/uL (4.8-10.8)
[2024-07-14 23:20] LABS: CREATININE 1.2 mg/dL (0.5-1.3); MAGNESIUM 2.1 mg/dL (1.80-2.40); POTASSIUM 3.9 mmol/L (3.5-5.1)
--- NOTE | 2024-07-14 23:31 | ERN ---
General Chief Complaint: Palpitations Stated Complaint: PALPITATIONS Time Seen by MD: 23:00 Source: patient History of Present Illness Initial Comments Patient is a 48-year-old male with a history of atrial fibrillation. He has a already had an ablation procedure performed here at this hospital with Dr. Flannery. Dr. Shaver is his choir accompanist. Today he noted increased palpitations and lightheadedness and associated left arm numbness during the episodes of palpations. He is currently on propafenone and verapamil for rate control, both of these medications were increased by his choir accompanist recently. He is on Pradaxa as his blood thinner. Patient has no other symptoms. Timing/Duration: 4-6 hours Allergies: Coded Allergies: No Known Drug Allergies (Unverified Allergy, Unknown, 09/20/20) Home Meds Reported Medications Melatonin (Melatonin) 3 Mg Tab.rapdis, 6 MG PO HS, TAB 06/26/24 Verapamil HCl (Verapamil HCl) 80 Mg Tablet, 80 MG PO TID, TAB 06/26/24 Verapamil HCl (Verapamil ER) 240 Mg Tablet.er, 240 MG PO AM, TAB 06/26/24 Propafenone HCl (Propafenone HCl) 325 Mg Cap.er.12h, 325 MG PO BID, CAPSULE. 06/26/24 Dabigatran Etexilate Mesylate (Pradaxa) 150 Mg Capsule, 150 MG PO BID, CAP 06/26/24 Cetirizine HCl (Cetirizine HCl) 10 Mg Tablet, 10 MG PO BID, TAB 12/28/23 [Mvi] No Conflict Check, 1 TAB PO DAILY 12/28/23 [Magnesium] No Conflict Check, 1 TAB PO DAILY 12/28/23 Gabapentin (Gabapentin) 100 Mg Capsule, 100 MG PO TID, CAP 12/28/23 Atorvastatin Calcium (Atorvastatin Calcium) 40 Mg Tablet, 1 TAB PO HS for 30 Days, #30 TAB 0 Refills 12/28/23 Venlafaxine HCl (Venlafaxine HCl ER) 150 Mg Cap.er.24h, 1 CAP PO DAILY for 30 Days, #30 CAP 0 Refills 12/28/23 Pantoprazole Sodium (Pantoprazole Sodium) 40 Mg Tablet.dr, 1 TAB PO DAILY for 30 Days, #30 TAB 0 Refills 12/28/23 Past Medical History Past Medical History: A-Fib, Heart Disease, Hypertension Medical History Other: VERTIGO AND PTSD Past Surgical History: None Surgical History Other: ABLATION Social History Social History: Lives with family Constitutional: (-) chills, (-) diaphoresis, (-) fever, (-) malaise, (-) weakness, (-) other documentation EENTM: (-) eye pain, (-) blurred vision, (-) tearing, (-) double vision, (-) ear pain, (-) ear discharge, (-) nose pain, (-) nose congestion, (-) throat pain, (-) Throat swelling, (-) mouth pain, (-) tooth pain, (-) mouth swelling, (-) other documentation Respiratory: (-) cough, (-) orthopnea, (-) short of breath, (-) stridor, (-) wheezing, (-) other documentation Cardiovascular: (-) chest pain, (-) edema, (-) palpitations, (-) syncope, (-) dyspnea on exertion, (-) other documentation Gastrointestinal/Abdominal: (-) nausea, (-) vomiting, (-) diarrhea, (-) abdominal pain, (-) abdominal distention, (-) constipation, (-) rectal bleeding, (-) dark stool/melena, (-) other documentation Musculoskeletal: (-) Neck pain, (-) back pain, (-) Flank Pain, (-) joint pain, (-) joint swelling, (-) muscle pain, (-) muscle stiffness, (-) gout, (-) other documentation Skin: (-) laceration, (-) contusion, (-) abrasion, (-) abscess, (-) rash, (-) change in color, (-) change in hair, (-) change in nails, (-) diaphoresis, (-) dryness, (-) other documentation Neuro: (-) altered mental status, (-) headache, (-) syncope, (-) paralysis, (-) numbness, (-) seizure, (-) pre-existing deficit, (-) tremors, (-) weakness, (-) dizziness, (-) slurred speech, (-) vertigo, (-) other documentation Physical Exam General Appearance: (+) mild distress Orientation: (+) alert, (+) oriented x 3 Head/Face Trauma: No Eye: bilateral eye normal inspection, bilateral eye PERRL, bilateral eye EOMI Ear, Nose, Throat: (+) hearing grossly normal, (+) normal ENT inspection, (+) moist mucous membraine Neck: (+) normal inspection, (+) supple, (+) full range of motion Respiratory: (+) chest non-tender, (+) lungs clear, (+) well ventilated Heart: (+) irregular Vascular: (+) no edema, (+) normal peripheral pulse, (+) no JVD Gastrointestinal: (+) soft, (+) non-tender, (+) bowel sound present Results Laboratory and Microbiology Lab and Micro Result Laboratory Tests Test 07/14/24 22:50 07/14/24 23:53 White Blood Count 8.3 K/uL (4.8-10.8) Red Blood Count 4.54 MIL/uL (4.50-6.20) Hemoglobin 13.9 g/dL (14.0-18.0) L Hematocrit 41.3 % (42-54) L Mean Corpuscular Volume 91.0 fL (79-99) Mean Corpuscular Hemoglobin 30.6 pg (27.0-33.0) Mean Corpuscular Hemoglobin Concent 33.7 g/dL (32.0-36.0) Red Cell Distribution Width 12.3 % (11.0-15.5) Platelet Count 235 K/uL (130-400) Mean Platelet Volume 8.9 fL (7.5-10.5) Immature Granulocyte % (Auto) 1.0 % (0-1) Neutrophils (%) (Auto) 55.3 % (40.0-77.0) Lymphocytes (%) (Auto) 30.4 % (21.0-51.0) Monocytes (%) (Auto) 10.5 % (3.0-13.0) Eosinophils (%) (Auto) 2.3 % (0.0-8.0) Basophils (%) (Auto) 0.5 % (0.0-5.0) Neutrophils # (Auto) 4.6 K/uL (1.8-7.7) Lymphocytes # (Auto) 2.5 K/uL (1.0-4.8) Monocytes # (Auto) 0.9 K/uL (0.1-1.0) Eosinophils # (Auto) 0.19 K/uL (0.00-0.70) Basophils # (Auto) 0.04 K/uL (0.00-0.20) Absolute Immature Granulocyte (auto 0.08 K/uL (0-1) Nucleated Red Blood Cells 0.0 % (0.0-0.19) Sodium Level 141 mmol/L (136-145) Potassium Level 3.9 mmol/L (3.5-5.1) Chloride Level 105 mmol/L (101-111) Carbon Dioxide Level 30 mmol/L (21-32) Blood Urea Nitrogen 17 mg/dL (7-18) Creatinine 1.2 mg/dL (0.5-1.3) Glomerular Filtration Rate Calc 75 mL/min (>90) Random Glucose 138 mg/dL (70-105) H Total Calcium 8.7 mg/dL (8.5-10.1) Magnesium Level 2.10 mg/dL (1.80-2.40) Troponin I High Sensitivity 5 ng/L (4-75) 6 ng/L (4-75) B-Type Natriuretic Peptide 10 pg/mL (0-100) MDM Patient with a history of atrial fibrillation on and antiarrhythmic and a calcium channel jayde having an exacerbation of his symptoms. The question is why. I will order labs to see if there electrolyte abnormalities order cardiac enzymes to be sure he is not having an TX. I will check his BNP. Once the results are back I will talk to his choir accompanist. Patient's lab results have come back and they are all normal. Also the patient's heart rate has slowed down to less than 100. I talked to Dr. Corea part of the [facility] cardiology practice. He agrees that there was really nothing to do right now and the patient can call the clinic and see them in the morning. ED Course Orders Procedure Category Date Status Time 12 Lead Ekg Tracing- EKG 07/14/24 Logged Technical 22:42 Cbc With Differential LAB 07/14/24 Complete 22:44 Basic Metabolic Panel LAB 07/14/24 Complete 22:44 Troponin I High LAB 07/14/24 Complete Sensitivity 22:44 Magnesium LAB 07/14/24 Complete 22:50 B-Type Natriuretic LAB 07/14/24 Complete Peptide 23:31 Troponin I High LAB 07/14/24 Complete Sensitivity 23:31 12 Lead Ekg Tracing- EKG 07/14/24 Logged Technical 23:31 Lactated Ringers PHA 07/14/24 Complete 1000ml (Lactated 23:31 12 Lead Ekg Tracing- EKG 07/15/24 Logged Technical 00:36 Current Medications Medications (Trade) Dose Ordered Sig/Warren Route PRN Reason Start Time Stop Time Status Last Admin Dose Admin Lactated Ringer's (Lactated Ringers 1000ml) 1,000 ml BOLUS STAT IV 07/14/24 23:31 07/14/24 23:34 DC 07/14/24 23:48 Vital Signs Date Time Temp Pulse Resp B/P (MAP) Pulse Ox O2 Delivery O2 Flow Rate FiO2 07/15/24 00:26 98.4 76 18 130/67 97 Room Air* 0 21 07/14/24 22:35 98.4 87 18 118/64 98 Room Air* 0 21 07/14/24 22:35 97.9 87 18 118/64 99 Room Air DX & DISP Disposition: Discharge Departure Impression: Primary Impression: Atrial fibrillation Condition: Stable Additional Instructions: If your heart starts beating faster than 130 beats per minute please come back to the hospital so we can admit you for better rate control. Follow-up with your cardiology practice in the morning Referrals: TONY PARHAM (PCP) TORIN WALKER MD July 14, 2024 23:31
[2024-07-14] MEDS: LACTATED RINGERS 1000ML IV STA (23:48)
[2024-07-15 00:26] VITALS: BP 130/67; PULSE 76; RESP 18; TEMP 98.4; O2SAT 97
--- NOTE | 2024-07-15 07:52 | EKG ---
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
== END 2024-07-15 00:57 | disposition home or self-care (01) ==
LOC: EDH 22:33
DX: I48.91 Unspecified atrial fibrillation (principal); I10 Essential (primary) hypertension; F43.10 Post-traumatic stress disorder, unspecified; Z79.899 Other long term (current) drug therapy; Z79.02 Long term (current) use of antithrombotics/antiplatelets; Z79.01 Long term (current) use of anticoagulants
CPT/HCPCS: 99284; 83735; 84484 ×2; 80048; 83880; 85025; 36415; 93005; J7120

== ENCOUNTER 2024-08-02 11:15 | Observation (INO) | payer OTHER ==
[~2024-08-02] VITALS: Ht 182.9 cm; Wt 117.8 kg
--- NOTE | 2024-08-02 11:30 | NUR ---
Note esme in ED - 08/02/24 at 1318 by [email or web address] patient brought by EMS for "low blood sugar", blood sugar is stable 85mg/dl, patient os AAOx3, not sure why is was sent here by his daughter, he has no complaints at this time.
--- NOTE | 2024-08-02 11:52 | HMCIMG ---
Exam Type: CT HEAD/BRAIN W/O CONTRAST Clinical Information: TIA Comparison: None CT Dose Index (CTDI): 57.33 mGy Dose Length Product (DLP): 956.79 total mGy-cm Findings: The examination is unremarkable. Osorio-white matter junction is preserved. No intra or extra axial lesions or fluid collections are seen. Specifically, osorio and white matter are normal in signal characteristics with normal caliber of ventricles and periventricular cisterns with no evidence of intra or or extra-axial hemorrhage, lacunar infarct, or major territorial infarct, mass, or other abnormality. There are no infarcts. There are no hemorrhages. Periventricular white matter locations are preserved. The orbital contents and structures of the posterior fossa are intact. Impression: Normal CT of the head. This study was performed using dose reduction techniques to include automated exposure control and/or adjustment of the mA and/or kV according to patient size.
[2024-08-02] MEDS: 0.9%NACL 1000ML 1,000 ML IV ONE (11:55)
--- NOTE | 2024-08-02 11:56 | EKG ---
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
[2024-08-02 12:16] LABS: BASOPHILS # (AUTO) 0.04 K/uL (0.00-0.20); BASOPHILS % (AUTO) 0.6 % (0.0-5.0); EOSINOPHILS # (AUTO) 0.09 K/uL (0.00-0.70); EOSINOPHILS % (AUTO) 1.3 % (0.0-8.0); HEMATOCRIT 44.3 % (42-54); IMMATURE GRANULOCYTE ABSOLUTE 0.03 K/uL (0-1); LYMPHOCYTES # (AUTO) 2.1 K/uL (1.0-4.8); LYMPHOCYTES % (AUTO) 29.8 % (21.0-51.0); MEAN CORPUSCULAR HEMOGLOBIN 30.6 pg (27.0-33.0); MEAN CORPUSCULAR HGB CONC 33.9 g/dL (32.0-36.0); MEAN CORPUSCULAR VOLUME 90.4 fL (79-99); MONOCYTES # (AUTO) 0.8 K/uL (0.1-1.0); MONOCYTES % (AUTO) 11.6 % (3.0-13.0); NEUTROPHILS % (AUTO) 56.3 % (40.0-77.0); PLATELET COUNT (AUTO) 295 K/uL (130-400); RED CELL DISTRIBUTION WIDTH 12.5 % (11.0-15.5); WHITE BLOOD COUNT (AUTO) 7.1 K/uL (4.8-10.8)
[2024-08-02 12:28] LABS: INR 1.06 (0.85-1.15); PROTHROMBIN TIME 11.2 SEC (9.6-11.6)
[2024-08-02 12:29] LABS: PARTIAL THROMBOPLASTIN TIME 34.2 SEC (26.3-35.5)
[2024-08-02 12:31] LABS: CREATININE 1.2 mg/dL (0.5-1.3); POTASSIUM 3.6 mmol/L (3.5-5.1)
--- NOTE | 2024-08-02 12:44 | HMCIMG ---
Exam Type: CHEST 1VW Clinical Information: Shortness of breath Comparison: None Findings: Ill-defined infiltrates of the left lower lobe are seen consistent with bilateral pneumonia. The heart is large in size. The bony and soft tissue structures show no worrisome pathology. IMPRESSION: Findings consistent with pneumonia. Cardiomegaly. Follow-up is advised.
--- NOTE | 2024-08-02 13:29 | ERN ---
General Chief Complaint: Dizzy/Light Headed Stated Complaint: DIZZINESS Time Seen by MD: 11:22 History of Present Illness Initial Comments Year old male coming in for left-sided numbness with weakness couple of however heart to arrival. Patient says that his symptoms or resolving. Patient otherwise has no concerns. Allergies: Coded Allergies: No Known Drug Allergies (Unverified Allergy, Unknown, 08/02/24) Past Medical History Past Medical History: A-Fib Medical History Other: PTSD, AFLUTTER, SVT, VERTIGO Past Surgical History: Other Surgical History Other: ABLATION ROS Dictation CONSTITUTIONAL: Negative except for HPI HEAD/FACE: Negative except for HPI EENT: Negative except for HPI RESPIRATORY: Negative except for HPI GASTROINTESTINAL/ABDOMINAL: Negative except for HPI GENITOURINARY: Negative except for HPI MUSCULOSKELETAL: Negative except for HPI INTEGUMENTARY: Negative except for HPI NEUROLOGICAL/PSYCH: Negative except for HPI HEMATOLOGIC/LYMPHATIC: Negative except for HPI All Systems Negative, Except as noted above. 13 point review of systems assessed and all negative except for above. Physical Exam Physical Exam Dictation Vital Signs reviewed General Appearance: Alert, oriented x 3, no acute distress, well developed, nourished. Head and Face: non-traumatic. Eyes: PERRL, pink conjunctivas, eyelid no trauma, anterior chamber with arcus senilis. Ears: Pinnas intact and no signs of trauma or erythema ear canals clear and no discharge TM no erythema Nose: No discharge, no bleeding. Oropharynx: Mouth normal, tongue pink, pharynx clear,no erythema, tonsils no exudates, no abscesses noted, mucous membrane moist Neck: Supple, non-tender, no thyromegaly, no masses, no JVD, no bruits Breast:Deferred Chest:No tenderness, no crepitus, no paradoxical movement, no retractions Lungs:Clear, well-ventilated, symmetric, no rales, no wheezing, no rhonchi, no stridor, good breath sounds bilaterally Heart: Regular rate, regular rhythm, no murmur, no gallops Vascular: no peripheral edema, Abdomen: Soft, positive bowel sounds, nondistended, no guarding, nontender, no rebound, no masses no hepatomegaly, no splenomegaly, no Verma's sign, no hernias. Rectal: Deferred Genital: Deferred Neurological: Normal speech, motor function intact, sensory function intact Musculoskeletal: Neck nontender, full range of motion, back nontender, full range of motion, Extremities: nontender, full range of motion Skin: Color pink, dry, no turgor, no rash, no lacerations, no abrasions, no contusions. Lymphatic: Deferred Results Laboratory and Microbiology Lab and Micro Result Laboratory Tests Test 08/02/24 12:02 White Blood Count 7.1 K/uL (4.8-10.8) Red Blood Count 4.90 MIL/uL (4.50-6.20) Hemoglobin 15.0 g/dL (14.0-18.0) Hematocrit 44.3 % (42-54) Mean Corpuscular Volume 90.4 fL (79-99) Mean Corpuscular Hemoglobin 30.6 pg (27.0-33.0) Mean Corpuscular Hemoglobin Concent 33.9 g/dL (32.0-36.0) Red Cell Distribution Width 12.5 % (11.0-15.5) Platelet Count 295 K/uL (130-400) Mean Platelet Volume 9.1 fL (7.5-10.5) Immature Granulocyte % (Auto) 0.4 % (0-1) Neutrophils (%) (Auto) 56.3 % (40.0-77.0) Lymphocytes (%) (Auto) 29.8 % (21.0-51.0) Monocytes (%) (Auto) 11.6 % (3.0-13.0) Eosinophils (%) (Auto) 1.3 % (0.0-8.0) Basophils (%) (Auto) 0.6 % (0.0-5.0) Neutrophils # (Auto) 4.0 K/uL (1.8-7.7) Lymphocytes # (Auto) 2.1 K/uL (1.0-4.8) Monocytes # (Auto) 0.8 K/uL (0.1-1.0) Eosinophils # (Auto) 0.09 K/uL (0.00-0.70) Basophils # (Auto) 0.04 K/uL (0.00-0.20) Absolute Immature Granulocyte (auto 0.03 K/uL (0-1) Nucleated Red Blood Cells 0.0 % (0.0-0.19) Prothrombin Time 11.2 SEC (9.6-11.6) Prothromb Time International Ratio 1.06 (0.85-1.15) Activated Partial Thromboplast Time 34.2 SEC (26.3-35.5) Sodium Level 140 mmol/L (136-145) Potassium Level 3.6 mmol/L (3.5-5.1) Chloride Level 104 mmol/L (101-111) Carbon Dioxide Level 30 mmol/L (21-32) Blood Urea Nitrogen 14 mg/dL (7-18) Creatinine 1.2 mg/dL (0.5-1.3) Glomerular Filtration Rate Calc 75 mL/min (>90) Random Glucose 93 mg/dL (70-105) Total Calcium 8.8 mg/dL (8.5-10.1) Total Creatine Kinase 168 U/L (21-232) Troponin I High Sensitivity 4 ng/L (4-75) MDM MDM: Differential diagnosis: Rationale: Tests considered and ordered secondary to shared decision making include: labs, ECG and radiology Previous outside records reviewed: Old ER visits. Risk of complication and/or morbidity or mortality of patient management: None Medications-Per medication reconciliation Need for hospitalization: Patient does meet criteria for hospitalization. Need for emergency major/minor surgery: No There are no social concerns with this patient. Prescription drug management Prescriptions will include symptomatic care Patient's prior external medical records from other ER visits were reviewed by me as indicated. Prior testing and results from previous visits were reviewed. Prior tests were taken into account with medical decision making and resource utilization, independent historian/historians were used to obtain complete [facility] history. I independently interpreted the test that were performed, results were reviewed by me and considered findings on radiology if ordered. Medical management and examination interpretation discussions were had by me with other qualified healthcare professionals as indicated for the patient's care. ED Course Orders Procedure Category Date Status Time 12 Lead Ekg Tracing- EKG 08/02/24 Complete Technical 11:21 12 Lead Ekg Tracing- EKG 08/02/24 Logged Technical 11:22 Cbc With Differential LAB 08/02/24 Complete 11:22 Basic Metabolic Panel LAB 08/02/24 Complete 11:22 Creatine Kinase, Total LAB 08/02/24 Complete 11:22 Pt And Ptt LAB 08/02/24 Complete 11:22 Troponin I High LAB 08/02/24 Complete Sensitivity 11:22 Chest 1vw RAD 08/02/24 Resulted 11:22 Ct Head/Brain W/O CT 08/02/24 Resulted Contrast 11:22 0.9%Nacl 1000ml (Ns PHA 08/02/24 Complete 1000ml) 12:00 Current Medications Medications (Trade) Dose Ordered Sig/Warren Route PRN Reason Start Time Stop Time Status Last Admin Dose Admin Sodium Chloride 1,000 ml @ 0 mls/hr ONCE ONCE IV 08/02/24 12:00 08/02/24 12:01 DC 08/02/24 11:55 Vital Signs Date Time Temp Pulse Resp B/P (MAP) Pulse Ox O2 Delivery O2 Flow Rate FiO2 08/02/24 11:25 98.2 86 16 123/92 98 Room Air* 0 21 08/02/24 11:25 98.2 86 16 123/92 98 0 DX & DISP Disposition: Inpatient Departure Impression: Primary Impression: TIA (transient ischemic attack) Condition: Stable Referrals: TONY PARHAM (PCP) SOCORRO SHORT MD August 02, 2024 13:29
[2024-08-02] MEDS ORDERED: IOHEXOL-350 75 ML VIAL IV ONE (14:08)
--- NOTE | 2024-08-02 14:35 | NUR ---
PT JUST RETURNDED FROM CT SCAN
--- NOTE | 2024-08-02 14:39 | NUR ---
DR TERRELL AT BEDSIDE
--- NOTE | 2024-08-02 14:49 | HP ---
[facility] HISTORY AND PHYSICAL Date of Service: August 02, 2024 Time of Service: 14:49 HISTORY OF PRESENT ILLNESS: Date of service: 08/02/2024 This is a 48-year-old male with past medical history of history of SVT status post ablation on chronic anticoagulation with Pradaxa, PTSD who presented to the hospital secondary to left-sided numbness and weakness. The patient states his symptoms started around 11:00 a.m. today prior to arrival in the ED. Patient noted that he was having numbness in the left arm with associated weakness. He felt his left face was also numb. He denied any weakness and numbness in the left leg. During the episode he also felt he was having palpitations. Patient has a history of SVT and currently takes verapamil and propafenone. He also takes Pradaxa at home and took his dose in the morning today prior to arrival. Denied any dysarthria, changes in his vision, dysuria, abdominal pain, chest pain, shortness of breath. During the episode he felt dizzy and lightheaded. Denied any fall, syncopal episode. His symptoms resolved by itself after he arrived in the ED. Seen at bedside patient currently denies any left arm paresthesias, weakness, weakness in the lower extremity, patient numbness, dysarthria, vision changes. He states his symptoms have resolved. He is able to ambulate without issues. He states he was scheduled for SVT ablation in the future. Labs were notable for WBC of 7.1, hemoglobin was 15.0, platelet count was 295 K, sodium was 140, potassium was 3.6, chloride was 104, bicarb was 30, creatinine was 1.2, CK was 168, troponin was negative x1 Chest x-ray was concerning for pneumonia versus congestive changes. REVIEW OF SYSTEMS CONSTITUTIONAL: Denies fevers, chills, or night sweats. No unintentional weight loss reported. NEUROLOGICAL: Denies headache, amaurosis fugax, motor weakness, sensory deficit, vertigo/spinning sensation, gait abnormalities, or tremors. ENT: No hearing loss, otalgia, otorrhea, rhinitis, rhinorrhea, hoarseness, or sore throat. CARDIOVASCULAR: Denies any exertional angina, dyspnea on exertion, orthopnea, paroxysmal nocturnal dyspnea, palpitations, life-threatening arrhythmias, claudication. PULMONARY: Denies any shortness of breath, cough, phlegm/sputum, hemoptysis, pleuritic chest pain. SLEEP: Denies morning headaches, daytime somnolence or napping. Denies difficulty falling asleep, staying asleep, waking from sleep. Denies knowledge of snoring. GASTROINTESTINAL: Denies any type of dysphagia to either liquids or solids. Denies nausea, vomiting, pyrosis, early satiety, abdominal pain, diarrhea, constipation, or changes in stool consistency or caliber. Denies coffee-ground emesis, hematemesis, hematochezia, or melanotic stools. GENITOURINARY: Denies frequency, urgency, nocturia, hematuria or incontinence (Storage/Irritative symptoms.) Low urinary stream, straining to void, urinary intermittency or hesitancy, splitting of the voiding stream, terminal dribbling. ENDOCRINOLOGIC: Denies polyuria, polydipsia, polyphagia or heat/cold intolerances. HEMATOLOGIC: Denies thrombophilia/previous clots, or coagulopathy/bleeding disorders. ONCOLOGIC: Denies personal history of malignancy. DERMATOLOGIC: Denies rashes or pruritus. PSYCHIATRIC: Denies any suicidal or homicidal ideation. Denies hallucinations. PAST MEDICAL HISTORY: SVT, PTSD PAST SURGICAL HISTORY: History of ablation of SVT PAST SOCIAL HISTORY: Denied any smoking, alcohol, drug FAMILY HISTORY: Denied any pertinent family history Coded Allergies: No Known Drug Allergies (Unverified Allergy, Unknown, 08/02/24) PHYSICAL EXAM GENERAL APPEARANCE: The patient is awake, alert, and oriented, in no acute cardiopulmonary distress. NEUROLOGICAL: Cranial nerves II-XII grossly intact. Motor is 5/5 in bilateral upper and lower extremities proximal to distal. No sensory deficits. HEENT: Face is symmetric. Pupils are equal and reactive. Extraocular movements are intact. NECK: Supple. No JVD. No thyromegaly. No submental, submandibular, pre- /postauricular, occipital or supraclavicular lymphadenopathy. CHEST: Normal chest expansion. No Telemetry. LUNGS: Absence of any rales, rhonchi or any wheezing. CARDIOVASCULAR: Regular. S1 and S2 normal. No appreciable rubs, murmurs or gallops. ABDOMEN: Soft, nontender, and nondistended. There is no rebound, voluntary guarding, or rigidity. : Deferred. No Williamson. EXTREMITIES: Non-edematous and not cyanotic. No clubbing. Good capillary refill. SKIN: No skin breakdown. Vital Sign (Last 24 Hours) 08/02/24 13:23 Temp 97.9 Pulse 92 Resp 19 B/P (MAP) 137/96 Pulse Ox 99 O2 Delivery Room Air* O2 Flow Rate 0 FiO2 21 LABS: Laboratory: Test 08/02/24 12:02 Range/Units White Blood Count 7.1 4.8-10.8 K/uL Red Blood Count 4.90 4.50-6.20 MIL/uL Hemoglobin 15.0 14.0-18.0 g/dL Hematocrit 44.3 42-54 % Mean Corpuscular Volume 90.4 79-99 fL Mean Corpuscular Hemoglobin 30.6 27.0-33.0 pg Mean Corpuscular Hemoglobin Concent 33.9 32.0-36.0 g/dL Red Cell Distribution Width 12.5 11.0-15.5 % Platelet Count 295 130-400 K/uL Mean Platelet Volume 9.1 7.5-10.5 fL Immature Granulocyte % (Auto) 0.4 0-1 % Neutrophils (%) (Auto) 56.3 40.0-77.0 % Lymphocytes (%) (Auto) 29.8 21.0-51.0 % Monocytes (%) (Auto) 11.6 3.0-13.0 % Eosinophils (%) (Auto) 1.3 0.0-8.0 % Basophils (%) (Auto) 0.6 0.0-5.0 % Neutrophils # (Auto) 4.0 1.8-7.7 K/uL Lymphocytes # (Auto) 2.1 1.0-4.8 K/uL Monocytes # (Auto) 0.8 0.1-1.0 K/uL Eosinophils # (Auto) 0.09 0.00-0.70 K/uL Basophils # (Auto) 0.04 0.00-0.20 K/uL Absolute Immature Granulocyte (auto 0.03 0-1 K/uL Nucleated Red Blood Cells 0.0 0.0-0.19 % Prothrombin Time 11.2 9.6-11.6 SEC Prothromb Time International Ratio 1.06 0.85-1.15 Activated Partial Thromboplast Time 34.2 26.3-35.5 SEC Sodium Level 140 136-145 mmol/L Potassium Level 3.6 3.5-5.1 mmol/L Chloride Level 104 101-111 mmol/L Carbon Dioxide Level 30 21-32 mmol/L Blood Urea Nitrogen 14 7-18 mg/dL Creatinine 1.2 0.5-1.3 mg/dL Glomerular Filtration Rate Calc 75 >90 mL/min Random Glucose 93 70-105 mg/dL Total Calcium 8.8 8.5-10.1 mg/dL Total Creatine Kinase 168 21-232 U/L Troponin I High Sensitivity 4 4-75 ng/L DIAGNOSTICS / RADIOLOGY: [ ] ASSESSMENT: Suspected TIA Palpitations Community-acquired pneumonia rule out History of SVT on chronic anticoagulation with Pradaxa PTSD PLAN: - patient to be admitted to P[facility]U -in reference to suspected t.i.d.. Patient will be given a dose of aspirin. Patient's CT angiogram was negative for any acute lesion. Patient's symptoms have resolved. Obtain neuro checks q.4 hours. NIH score to be documented. We will kindly request Neurology consultation. Patient will be on hydralazine q.6 hours for systolic blood pressure greater than 220. We will keep permissive hypertension -in reference to possible pneumonia. Obtain a CT chest for further evaluation. Patient currently does not have any cough. Denied any fevers. - in reference to palpitations. Patient will be monitored on telemetry. Check troponins q.6 hours to rule out ACS. Concern if symptoms left arm numbness were in setting of palpitations versus TIA. -obtain echocardiogram -obtain home medications which will be reconciled - speech eval and PT evaluation -check TSH, A1c, procalcitonin, CRP -further orders per hospitalization course. Advanced Care Planning Which of the following were discussed: Hospice care: Yes __ No _x_ Therapeutic options: Yes __ No __ Advance directives: Yes __ No __ Other discussions: pt is full code Discussed with who?: patient (Patient, family or surrogates) Voluntary nature of this service was explained to the patient? Yes _x_ No __ Amount of time spent: 25 minutes CLIVE Clarke MD, MD August 02, 2024 14:49
[2024-08-02] MEDS ORDERED: hydrALAZine 20MG/ML VIAL IV PRN (15:00)
[2024-08-02] MEDS ORDERED: MAGNESIUM 2GM PREMIX 50ML 50 ML IV PRN (15:00)
[2024-08-02] MEDS ORDERED: PoTASSium chl 10% ELIXIR 20MEQ 20 MEQ/15 ML UDCUP PO PRN (15:00)
[2024-08-02] MEDS ORDERED: PoTASSium chloRIDE 20MEQ/100ML 100 ML IV PRN (15:00)
--- NOTE | 2024-08-02 15:02 | HMCIMG ---
Exam Type: CT ANGIO HEAD AND NECK Clinical Information: TIA Comparison: None CT Dose Index (CTDI): 5.06 mGy Dose Length Product (DLP): 200.8 total mGy PROTOCOL: Examination is done at 5 millimeter multiple axial slices after IV contrast administration, 100 cc Isovue-370 IV with arterial dynamic scanning. Examination is photographed in the axial and coronal planes. In addition, surface-rendered three-dimensional reconstructions of the [place] are performed. No complications occurred after contrast administration. Findings: The vessels of the [place] are patent. There is no aneurysm. There is no arteriovenous malformation. There are no occlusions. No tumor blush is identified. The carotid system is preserved bilaterally without significant atheromatous disease. There is no aneurysm. There is no occlusion. There is no dissection. The examination of the cervical spine shows no fractures, dislocations, or significant abnormalities. The examination on the neck is unremarkable otherwise. No lymphadenopathy seen. There are no masses. There are no fluid collections. The fat planes are preserved. The parotid glands are intact. Impression: Normal exam of the brain with contrast and CT-Angiogram of the [place]. Normal neck exam. No carotid occlusions.
[2024-08-02 15:16] LABS: APPEARANCE,URINE CLEAR (CLEAR); BILIRUBIN,URINE NEGATIVE (NEGATIVE); GLUCOSE, URINE (UA) NEGATIVE (NEGATIVE); KETONES,URINE NEGATIVE (NEGATIVE); LEUKOCYTE ESTERASE ,URINE NEGATIVE Leu/uL (NEGATIVE); NITRATE,URINE NEGATIVE (NEGATIVE); OCCULT BLOOD,URINE NEGATIVE (NEGATIVE); PH,URINE 6.5 (5.0-8.0); PROTEIN,URINE NEGATIVE (NEGATIVE); UROBILINOGEN,URINE 0.2 mg/dL (0.2-1.0)
[2024-08-02 15:17] LABS: COLOR,URINE LIGHT-YELLOW (YELLOW)
[2024-08-02 15:18] LABS: ADD UA MICROSCOPIC NO
[2024-08-02] MEDS: ASPIRIN 81MG CHEW TAB PO ONE (15:57)
[2024-08-02 16:40] VITALS: BP 132/84; PULSE 75; RESP 17; TEMP 98
[2024-08-02 16:52] VITALS: O2SAT 96
[2024-08-02 17:09] LABS: SARS-CoV-2, RNA, NAAT NEGATIVE SARS CoV-2 (NEGATIVE)
[2024-08-02] MEDS ORDERED: CETI10TA87 PO (17:12)
[2024-08-02] MEDS ORDERED: VENL-83 PO (17:12)
[2024-08-02] MEDS ORDERED: PROP325C17 PO (17:12)
[2024-08-02] MEDS ORDERED: ATOR40TA69 PO (17:12)
[2024-08-02] MEDS ORDERED: PANT40TA54 PO (17:12)
[2024-08-02] MEDS ORDERED: DABI150C PO (17:12)
[2024-08-02] MEDS ORDERED: GABA-529 PO (17:12)
[2024-08-02] MEDS ORDERED: VERE240SR PO (17:12)
[2024-08-02 17:13] LABS: INFLUENZA TYPE A Negative For Type A (NEGATIVE); INFLUENZA TYPE B Negative For Type B (NEGATIVE)
[2024-08-02] MEDS: PoTASSium chloRIDE 20MEQ ER 20 MEQ ERTAB PO PRN (18:19)
[2024-08-02 19:08] VITALS: BP 134/78; PULSE 89; RESP 17; TEMP 97.9
[2024-08-02 19:30] VITALS: O2SAT 98
[2024-08-02] MEDS: PROPAFENONE HCL PO SCH (21:00)
[2024-08-02] MEDS: FAMOTIDINE 20MG VIAL IV SCH (21:17)
[2024-08-02] MEDS: atorVAStatin 40 MG TABLET PO SCH (21:18)
[2024-08-02] MEDS: GABApentin 100 MG CAPSULE PO SCH (21:18)
[2024-08-02 23:46] VITALS: BP 119/46; PULSE 71; RESP 18; TEMP 97.4
[2024-08-03 04:22] VITALS: BP 108/58; PULSE 79; RESP 16; TEMP 97.9
[2024-08-03] MEDS: acetaMINOPHEN 500 MG TABLET PO PRN (06:12)
[2024-08-03 06:20] LABS: BASOPHILS # (AUTO) 0.04 K/uL (0.00-0.20); BASOPHILS % (AUTO) 0.6 % (0.0-5.0); EOSINOPHILS % (AUTO) 1.6 % (0.0-8.0); HEMATOCRIT 41.5 % (42-54); IMMATURE GRANULOCYTE ABSOLUTE 0.02 K/uL (0-1); LYMPHOCYTES # (AUTO) 1.7 K/uL (1.0-4.8); LYMPHOCYTES % (AUTO) 26.7 % (21.0-51.0); MEAN CORPUSCULAR HEMOGLOBIN 30.8 pg (27.0-33.0); MEAN CORPUSCULAR HGB CONC 34.7 g/dL (32.0-36.0); MEAN CORPUSCULAR VOLUME 88.9 fL (79-99); MONOCYTES # (AUTO) 0.7 K/uL (0.1-1.0); MONOCYTES % (AUTO) 11.2 % (3.0-13.0); NEUTROPHILS # (AUTO) 3.8 K/uL (1.8-7.7); NEUTROPHILS % (AUTO) 59.6 % (40.0-77.0); PLATELET COUNT (AUTO) 265 K/uL (130-400); RED BLOOD CELL COUNT(AUTO) 4.67 MIL/uL (4.50-6.20); RED CELL DISTRIBUTION WIDTH 12.6 % (11.0-15.5); WHITE BLOOD COUNT (AUTO) 6.4 K/uL (4.8-10.8)
[2024-08-03 06:28] LABS: CREATININE 1.1 mg/dL (0.5-1.3); POTASSIUM 3.9 mmol/L (3.5-5.1)
[2024-08-03 08:04] VITALS: BP 120/71; PULSE 69; RESP 16; TEMP 97.9
[2024-08-03 08:11] VITALS: O2SAT 98
--- NOTE | 2024-08-03 08:43 | HMCIMG ---
CT NONCONTRAST CHEST Comparison Study: none History: rule out pnuemonia Technique: Helical CT of the chest without IV contrast at 5 mm collimation. Coronal and sagittal reformations also done. CT Dose Index (CTDI): 2.38 mGy Dose Length Product (DLP): 94.8 total mGy-cm Findings: The airway is intact. The trachea and major bronchi are unremarkable. The chest exam shows no pulmonary nodules or masses. No significant pulmonary parenchymal abnormalities are noted. No pulmonary infiltrates or mass lesions are seen. No pleural effusions are identified. There is no pneumothorax. There is no evidence of pneumomediastinum. The nonenhanced exam of the binh and mediastinum is unremarkable. No evidence of hilar enlargement is seen. The aorta shows no aneurysmal dilatation or significant atheromatous calcification. No significant brachiocephalic vascular abnormalities are seen. The heart is unremarkable. It is not enlarged. No significant coronary arterial calcifications are seen. There is no pericardial effusion. The rib cage appears unremarkable. The soft tissues of the chest wall are unremarkable. The dorsal spine shows no significant abnormalities. IMPRESSION: NORMAL CT OF THE CHEST WITHOUT CONTRAST. This study was performed using dose reduction techniques to include automated exposure control and/or adjustment of the mA and/or kV according to patient size.
[2024-08-03] MEDS: VENLAFAXINE HCL 75 MG PO SCH (08:45)
[2024-08-03] MEDS: PANTOPrazole 40 MG TAB DR PO SCH (08:45)
[2024-08-03] MEDS: ASPIRIN 81MG CHEW TAB PO SCH (08:45)
[2024-08-03] MEDS: VERAPAMIL HCL PO SCH (08:47)
--- NOTE | 2024-08-03 09:23 | PN ---
[facility] PROGRESS NOTE Date of Service: August 03, 2024 Time of Service: 09:19 SUBJECTIVE: This is a 48-year-old male with past medical history of history of SVT status post ablation on chronic anticoagulation with Pradaxa, PTSD who presented to the hospital secondary to left-sided numbness and weakness. The patient states his symptoms started around 11:00 a.m. today prior to arrival in the ED. Patient noted that he was having numbness in the left arm with associated weakness. He felt his left face was also numb. He denied any weakness and numbness in the left leg. During the episode he also felt he was having palpitations. Patient has a history of SVT and currently takes verapamil and propafenone. He also takes Pradaxa at home and took his dose in the morning today prior to arrival. Denied any dysarthria, changes in his vision, dysuria, abdominal pain, chest pain, shortness of breath. During the episode he felt dizzy and lightheaded. Denied any fall, syncopal episode. His symptoms resolved by itself after he arrived in the ED. Seen at bedside patient currently denies any left arm paresthesias, weakness, weakness in the lower extremity, patient numbness, dysarthria, vision changes. He states his symptoms have resolved. He is able to ambulate without issues. He states he was scheduled for SVT ablation in the future. Labs were notable for WBC of 7.1, hemoglobin was 15.0, platelet count was 295 K, sodium was 140, potassium was 3.6, chloride was 104, bicarb was 30, creatinine was 1.2, CK was 168, troponin was negative x1 Chest x-ray was concerning for pneumonia versus congestive changes. CT chest is unremarkable. CT scan of the head and neck, unremarkable, no acute findings Patient is seen and examined today, during my visit he is sitting comfortably in bed, alert oriented x3, he denies dizziness, no headache, no chest pain, no shortness a breath, no nausea, no vomiting. REVIEW OF SYSTEMS CONSTITUTIONAL: Denies fevers, chills, or night sweats. No unintentional weight loss reported. NEUROLOGICAL: Denies headache, amaurosis fugax, motor weakness, sensory deficit, vertigo/spinning sensation, gait abnormalities, or tremors. ENT: No hearing loss, otalgia, otorrhea, rhinitis, rhinorrhea, hoarseness, or sore throat. CARDIOVASCULAR: Denies any exertional angina, dyspnea on exertion, orthopnea, paroxysmal nocturnal dyspnea, palpitations, life-threatening arrhythmias, claudication. PULMONARY: Denies any shortness of breath, cough, phlegm/sputum, hemoptysis, pleuritic chest pain. SLEEP: Denies morning headaches, daytime somnolence or napping. Denies difficulty falling asleep, staying asleep, waking from sleep. Denies knowledge of snoring. GASTROINTESTINAL: Denies any type of dysphagia to either liquids or solids. Denies nausea, vomiting, pyrosis, early satiety, abdominal pain, diarrhea, constipation, or changes in stool consistency or caliber. Denies coffee-ground emesis, hematemesis, hematochezia, or melanotic stools. GENITOURINARY: Denies frequency, urgency, nocturia, hematuria or incontinence (Storage/Irritative symptoms.) Low urinary stream, straining to void, urinary intermittency or hesitancy, splitting of the voiding stream, terminal dribbling. ENDOCRINOLOGIC: Denies polyuria, polydipsia, polyphagia or heat/cold intolerances. HEMATOLOGIC: Denies thrombophilia/previous clots, or coagulopathy/bleeding disorders. ONCOLOGIC: Denies personal history of malignancy. DERMATOLOGIC: Denies rashes or pruritus. PSYCHIATRIC: Denies any suicidal or homicidal ideation. Denies hallucinations. PHYSICAL EXAM GENERAL APPEARANCE: The patient is awake, alert, and oriented, in no acute cardiopulmonary distress. NEUROLOGICAL: Cranial nerves II-XII grossly intact. Motor is 5/5 in bilateral upper and lower extremities proximal to distal. No sensory deficits. HEENT: Face is symmetric. Pupils are equal and reactive. Extraocular movements are intact. NECK: Supple. No JVD. No thyromegaly. No submental, submandibular, pre-/post auricular, occipital or supraclavicular lymphadenopathy. CHEST: Normal chest expansion. No Telemetry. LUNGS: Absence of any rales, rhonchi or any wheezing. CARDIOVASCULAR: Regular. S1 and S2 normal. No appreciable rubs, murmurs or gallops. ABDOMEN: Soft, nontender, and nondistended. There is no rebound, voluntary guarding, or rigidity. : Deferred. No Williamson. EXTREMITIES: Non-edematous and not cyanotic. No clubbing. Good capillary refill. SKIN: No skin breakdown. Vital Signs (last 8hr) Date Time Temp Pulse Resp B/P (MAP) Pulse Ox O2 Delivery O2 Flow Rate FiO2 08/03/24 08:11 98 Room Air* 0 21 08/03/24 08:04 97.9 69 16 120/71 96 Room Air 08/03/24 04:22 97.9 79 16 108/58 96 Room Air LABS: Laboratory: Test 08/03/24 06:16 08/02/24 22:22 08/02/24 16:49 08/02/24 13:28 Range/Units White Blood Count 6.4 4.8-10.8 K/uL Red Blood Count 4.67 4.50-6.20 MIL/uL Hemoglobin 14.4 14.0-18.0 g/dL Hematocrit 41.5 L 42-54 % Mean Corpuscular Volume 88.9 79-99 fL Mean Corpuscular Hemoglobin 30.8 27.0-33.0 pg Mean Corpuscular Hemoglobin Concent 34.7 32.0-36.0 g/dL Red Cell Distribution Width 12.6 11.0-15.5 % Platelet Count 265 130-400 K/uL Mean Platelet Volume 8.9 7.5-10.5 fL Immature Granulocyte % (Auto) 0.3 0-1 % Neutrophils (%) (Auto) 59.6 40.0-77.0 % Lymphocytes (%) (Auto) 26.7 21.0-51.0 % Monocytes (%) (Auto) 11.2 3.0-13.0 % Eosinophils (%) (Auto) 1.6 0.0-8.0 % Basophils (%) (Auto) 0.6 0.0-5.0 % Neutrophils # (Auto) 3.8 1.8-7.7 K/uL Lymphocytes # (Auto) 1.7 1.0-4.8 K/uL Monocytes # (Auto) 0.7 0.1-1.0 K/uL Eosinophils # (Auto) 0.10 0.00-0.70 K/uL Basophils # (Auto) 0.04 0.00-0.20 K/uL Absolute Immature Granulocyte (auto 0.02 0-1 K/uL Nucleated Red Blood Cells 0.0 0.0-0.19 % Sodium Level 140 136-145 mmol/L Potassium Level 3.9 3.5-5.1 mmol/L Chloride Level 105 101-111 mmol/L Carbon Dioxide Level 30 21-32 mmol/L Blood Urea Nitrogen 12 7-18 mg/dL Creatinine 1.1 0.5-1.3 mg/dL Glomerular Filtration Rate Calc 83 >90 mL/min Random Glucose 93 70-105 mg/dL Total Calcium 8.7 8.5-10.1 mg/dL Troponin I High Sensitivity 6 4-75 ng/L Influenza Type A Antigen Negative For Type A NEGATIVE Influenza Type B Antigen Negative For Type B NEGATIVE SARS-CoV-2, RNA, NAAT NEGATIVE SARS CoV-2 NEGATIVE Urine Color LIGHT-YELLOW YELLOW Urine Appearance CLEAR CLEAR Urine pH 6.5 5.0-8.0 Urine Specific [place] 1.004 1.001-1.031 Urine Protein NEGATIVE NEGATIVE mg/dL Urine Glucose (UA) NEGATIVE NEGATIVE mg/dL Urine Ketones NEGATIVE NEGATIVE mg/dL Urine Occult Blood NEGATIVE NEGATIVE Urine Nitrate NEGATIVE NEGATIVE Urine Bilirubin NEGATIVE NEGATIVE mg/dL Urine Urobilinogen 0.2 0.2-1.0 mg/dL Urine Leukocyte Esterase NEGATIVE NEGATIVE Mariano/uL Test 08/02/24 12:02 Range/Units Prothrombin Time 11.2 9.6-11.6 SEC Prothromb Time International Ratio 1.06 0.85-1.15 Activated Partial Thromboplast Time 34.2 26.3-35.5 SEC Total Creatine Kinase 168 21-232 U/L B-Type Natriuretic Peptide < 5 0-100 pg/mL Current Medications Medications (Trade) Dose Ordered Sig/Warren Route PRN Reason Start Time Stop Time Status Last Admin Dose Admin Acetaminophen (TYLenol 500MG TAB) 500 mg Q6H PRN PO MILD PAIN (1-3) 08/02/24 15:00 09/01/24 14:59 08/03/24 06:12 500 MG Aspirin (Aspirin 81mg Chew Tab) 81 mg DAILY PO 08/03/24 09:00 09/02/24 08:59 08/03/24 08:45 81 MG Atorvastatin Calcium (LIPItor 40MG) 40 mg HS PO 08/02/24 21:00 09/01/24 20:59 08/02/24 21:18 40 MG Famotidine (Pepcid 20mg Vial) 20 mg BID IV 08/02/24 21:00 09/01/24 20:59 08/03/24 08:45 20 MG Gabapentin (NEURontin 100 mg CAP) 100 mg TID PO 08/02/24 21:00 09/01/24 20:59 08/03/24 08:45 100 MG Home Med (Home Medication) (Verapamil HCl (Verapa... DAILY PO 08/03/24 09:00 09/02/24 08:59 Home Med (Home Medication) Propafenone HCl 325 ER 1 CAP) BID PO 08/02/24 21:00 09/01/24 20:59 Hydralazine HCl (APRESOLine 20MG INJ) 10 mg Q6H PRN IV ADMINISTER FOR SBP > 220 08/02/24 15:00 09/01/24 14:59 Magnesium Sulfate 50 ml @ 0 mls/hr PROTOCOL PRN IV HYPOMAGNESEMIA 08/02/24 15:00 09/01/24 14:59 Pantoprazole Sodium (PROTonix 40MG TAB) 40 mg DAILY PO 08/03/24 09:00 09/02/24 08:59 08/03/24 08:45 40 MG Potassium Chloride 100 ml @ 100 mls/hr AD PRN IV POTASSIUM PROTOCOL 08/02/24 15:00 09/01/24 14:59 Potassium Chloride (K-Dur/Klor-Con 20meq) 20 meq AD PRN PO POTASSIUM PROTOCOL 08/02/24 15:00 09/01/24 14:59 08/02/24 21:22 20 MEQ Potassium Chloride (KCl 10% Elixir 20meq/15ml) 20 meq AD PRN PO POTASSIUM PROTOCOL 08/02/24 15:00 09/01/24 14:59 Venlafaxine HCl (EffEXOR 75 MG TAB) 75 mg DAILY PO 08/03/24 09:00 09/02/24 08:59 08/03/24 08:45 75 MG DIAGNOSTICS / RADIOLOGY: [ ] ASSESSMENT: Suspected TIA Palpitations Community-acquired pneumonia ruled out History of SVT on chronic anticoagulation with Pradaxa PTSD PLAN: - patient to be admitted to [facility]U -in reference to suspected t.i.d.. Patient received a dose of aspirin. Patient's CT angiogram was negative for any acute lesion. Patient's symptoms have resolved. Obtain neuro checks q.4 hours. NIH score to be documented. We will kindly request Neurology consultation. Patient will be on hydralazine q.6 hours for systolic blood pressure greater than 220. We will keep permissive hypertension -in reference to possible pneumonia. CT of the chest is negative. - in reference to palpitations. Patient will be monitored on telemetry. Check troponins q.6 hours to rule out ACS. Concern if symptoms left arm numbness were in setting of palpitations versus TIA. -obtain echocardiogram ejection fraction -possible discharge home today if cleared by Neurology and Cardiology. NEURO: Minimize central acting medications as possible. Fall Precautions. Well lighted room through the day and minimize interruptions through the night to prevent acute delirium. PULMONARY: Supplemental 02 as needed BiPAP as necessary, for respiratory distress Titrate Fio2 to keep Spo2 > or = 90% DuoNebs and CPT as needed IS hourly while awake for pulmonary hygiene prn Out of bed to chair as tolerated Maintain aspiration precautions at all times CARDIOVASCULAR: Follow hemodynamics. Vital signs per facility protocol GI & NUTRITION: Continue nutritional support Aspirations precautions Prokinetic agents and laxatives as needed KIDNEYS & ELECTROLYTES: Strict monitoring of intake and output Daily weights Avoid nephrotoxic agents Monitor electrolytes and replace as needed Goal urine output of 30mL/hr or 0.5mL/kg/hr Medications to be dosed according to renal function. Avoid contrast if possible ENDOCRINE: Maintain blood glucose between 100-180 at all times. Insulin sliding scale for blood glucose management Hypoglycemia and hyperglycemia protocol in place INFECTIOUS DISEASE: Trend temperature, WBC and procalcitonin level Follow cultures, deescalate antibiotics as soon as possible. Panculture if new onset fever HEMATOLOGY & COAGULATION: Monitor H&H. Keep Hgb > 7 Transfuse 1 unit of PRBC for Hgb < 7 Transfuse 1 pack of platelets of platelets < 20, 000 Watch for any signs and symptoms of bleeding SKIN: Pressure ulcer prevention per facility protocol Specialty mattress as needed ORTHO/REHAB Continue PT/OT PRN: MEDICATIONS Tylenol 650 mg po every 4 hrs for fever zofran 4 mg IV every 6 hrs for n/v Hydralazine 5 mg IV every 4 hrs systolic pressure > 160 bowel regiment: lactulose 20 gm PO BID PRN constipation Supportive measures: Continue GI and DVT prophylaxis Disposition: pending Improvement in clinical condition All questions answered time spent: > 35 min DEEP CELIS MD August 03, 2024 09:23
[2024-08-03] MEDS: DabiGATran 150MG CAPSULE PO SCH (09:42)
[2024-08-03] MEDS: PROPAFENONE HCL 150 MG TABLET PO SCH (10:27)
[2024-08-03] MEDS: VERAPAMIL HCL 240 MG SRTAB PO SCH (10:29)
--- NOTE | 2024-08-03 11:20 | DS ---
Discharge Summary Hospital Course Summary: This is a 48-year-old male with past medical history of history of SVT status post ablation on chronic anticoagulation with Pradaxa, PTSD who presented to the hospital secondary to left-sided numbness and weakness. The patient states his symptoms started around 11:00 a.m. today prior to arrival in the ED. Patient noted that he was having numbness in the left arm with associated weakness. He felt his left face was also numb. He denied any weakness and numbness in the left leg. During the episode he also felt he was having palpitations. Patient has a history of SVT and currently takes verapamil and propafenone. He also takes Pradaxa at home and took his dose in the morning today prior to arrival. Denied any dysarthria, changes in his vision, dysuria, abdominal pain, chest pain, shortness of breath. During the episode he felt dizzy and lightheaded. Denied any fall, syncopal episode. His symptoms resolved by itself after he arrived in the ED. Seen at bedside patient currently denies any left arm paresthesias, weakness, weakness in the lower extremity, patient numbness, dysarthria, vision changes. He states his symptoms have resolved. He is able to ambulate without issues. He states he was scheduled for SVT ablation in the future. Labs were notable for WBC of 7.1, hemoglobin was 15.0, platelet count was 295 K, sodium was 140, potassium was 3.6, chloride was 104, bicarb was 30, creatinine was 1.2, CK was 168, troponin was negative x1 Chest x-ray was concerning for pneumonia versus congestive changes. CT chest is unremarkable. CT scan of the head and neck, unremarkable, no acute findings Patient is seen and examined today, during my visit he is sitting comfortably in bed, alert oriented x3, he denies dizziness, no headache, no chest pain, no shortness a breath, no nausea, no vomiting. It Network Architect(s): Cardiology and Neurology Assessment/Plan: Final diagnosis Suspected TIA Palpitations Community-acquired pneumonia ruled out History of SVT on chronic anticoagulation with Pradaxa PTSD Discharge Instructions: Patient to follow with PCP as an outpatient. Return to hospital condition changes. Home Medications: Reported Medications Cetirizine HCl (Cetirizine HCl) 10 Mg Tab.chew, 1 TAB PO DAILY for allergy symptoms for 30 Days, #30 TAB 0 Refills 08/02/24 Venlafaxine HCl (Venlafaxine HCl) 75 Mg Tablet, 75 MG PO DAILY, TAB 08/02/24 Propafenone HCl (Propafenone HCl) 325 Mg Cap.er.12h, 1 CAP PO BID for 30 Days, #60 CAP 0 Refills 08/02/24 Dabigatran Etexilate Mesylate (Pradaxa) 150 Mg Capsule, 1 CAP PO BID for 30 Days, #60 CAP 0 Refills 08/02/24 Verapamil HCl (Verapamil ER) 240 Mg Cap24h.pel, 1 CAP PO DAILY for 30 Days, #30 CAP 0 Refills 08/02/24 Atorvastatin Calcium (LIPITOR) 40 Mg Tablet, 1 TAB PO HS for 30 Days, #30 TAB 0 Refills 25 Pantoprazole Sodium (Pantoprazole Sodium) 40 Mg Tablet.dr, 1 TAB PO DAILY for 30 Days, #30 TAB 0 Refills 08/02/24 Gabapentin (Gabapentin) 100 Mg Capsule, 1 CAP PO TID for 30 Days, #90 CAP 0 Refills 08/02/24 Time spent arranging discharge: 31-60 minutes DEEP CELIS MD August 03, 2024 11:20
[2024-08-03 12:17] VITALS: BP 122/84; PULSE 73; RESP 16; TEMP 97.9
--- NOTE | 2024-08-03 12:53 | CONS ---
HPI: This is a 48 year old male with a history of multiple atrial arrhythmias including paroxysmal atrial fibrillation, atypical and typical flutter status post ablation 09/23/2020. He also has a history of benign paroxysmal positional vertigo, tinnitus, hearing loss and depression. He has had multiple hospitalizations with stroke-like symptoms, palpitations and tachycardia beginning in November 2023. On 12/07/2023 he was admitted with complaints of left-sided weakness and difficulty word finding. He underwent CT scan of the head without contrast that was normal, CT cerebral perfusion with contrast which was negative for ischemia or infarct, and CTA of the head and neck which was negative for high-grade stenosis or major vessel occlusion and negative for aneurysm or AVM. He subsequently underwent MRI of the brain without contrast that was deemed normal. Echocardiogram 12/08/2023 showed an ejection fraction of 55 to 60% with normal bubble study and trace mitral and tricuspid valve regu rgitation. 2 EKGs performed during the admission shows sinus rhythm heart rates of 84 and 69 bpm. The episode was deemed a TIA and he was started on dual antiplatelet therapy with aspirin 81 mg and clopidogrel 75 mg x 21 days. He had a second admission to [facility] on 01/19/2024 due to palpitations and tachycardia associated with numbness to his arms. 2 EKGs perfo rmed shows sinus rhythm with heart rates of 66 and 84 bpm. He subsequently underwent an outpatient ROBERT 01/02/2024 that demonstrated an ejection fraction of greater than 55% with normal diastolic function, negative bubble study, no ev idence of PFO/ASD, no thrombus in the left atrium or left atrial appendage, mitral valve leaflets appear mildly myxomatous. He wore a monitor 01/08/2024 through 01/21/2024 which revealed a predominant rhythm of sinus rhythm with frequent episodes of tachycardia with heart rates in the 150s to 160s. The arrhythmia is suspicious for atrial flutter with 1:1 conduction. Verapamil was titrated to 240 mg once daily. He was also started on Eliquis 03/20/2024 in anticipation of undergoing catheter ablation of his atrial arrhythmias. He was scheduled for catheter ablation 04/16/2024, however the procedure was canceled due to him being admitted to [facility]. He presented via EMS with complaints of severe unsteadiness, left-sided upper and lower extremity weakness, pulsations to the left side of his head and confusion. He initially underwent CT of the head without contrast which was negative for acute intracranial process. CT cerebral perfusion with contrast showed a calculated 2 mL total volume of reversible ischemia in the right temporal lobe. CT of the head and neck was negative for stenosis, occlusion or aneurysm of the intracranial and cervical vasculature. MRI of the brain without contrast was negative for acute ischemia. He underwent repeat ROBERT on 04/17/2024 which was negative for left atrial appendage thrombus. He had a long RP tachycardia with heart rates in the 120s. He was discharged on Pradaxa 150 mg twice daily. Propafenone ER was titrated to 325 mg twice daily. He was scheduled for left- sided atrial flutter/pulmonary vein isolation on 07/01/2024. Unfortunately this procedure has been canceled due to malfunction of the activated clotting time machine with a new machine pending instillation. He has had multiple visits to the emergency department since that time. He was readmitted 08/02/2024 due to recurrent left-sided numbness and weakness in the setting of palpitations. During his last ER visit he was advised not to return to the emergency department if his heart rate was underwent 130 beats per minute. Due to heart rates in the 150s, he presented to the emergency department. He states that the tachycardia lasted approximately 30 minutes. At times it goes on for hours. He has been maintained on propafenone ER 325 mg twice daily and verapamil ER 240 mg once daily. His EKG 08/02/2024 shows sinus rhythm with a heart rate of 95 beats per minute. He is currently in sinus rhythm with heart rates in the 60s to 70s. He underwent CT of the head without contrast which was deemed normal. CTA of the head and neck showed normal CT of the brain and [place], as well as normal neck exam without occlusion. Patient History: PAST MEDICAL HISTORY: As noted above. SOCIAL HISTORY: He lives at home with his . SURGICAL HISTORY: As noted above. Allergies: Coded Allergies: No Known Drug Allergies (Unverified Allergy, Unknown, 08/02/24) Additional RoS: Negative with the exception of HPI. Vital Signs Vital Signs 08/03/24 08/03/24 08:11 12:17 Temp 97.9 Pulse 73 Resp 16 B/P (MAP) 122/84 Pulse Ox 97 O2 Delivery Room Air O2 Flow Rate 0 FiO2 21 Appearance: Well dev, well nourished Eyes: Clear, Normal Conjuctivae/eyelid Ear/Nose/Mouth/Throat: Landmarks WNL Neck: Symmetric, trach midline Cardiovascular: Regular Rate, Regular Rhythm Respiratory: Lungs clear Laboratory Tests Test 08/02/24 12:02 08/02/24 13:28 08/02/24 15:57 08/02/24 16:49 Range/Units White Blood Count 7.1 4.8-10.8 K/uL Red Blood Count 4.90 4.50-6.20 MIL/uL Hemoglobin 15.0 14.0-18.0 g/dL Hematocrit 44.3 42-54 % Mean Corpuscular Volume 90.4 79-99 fL Mean Corpuscular Hemoglobin 30.6 27.0-33.0 pg Mean Corpuscular Hemoglobin Concent 33.9 32.0-36.0 g/dL Red Cell Distribution Width 12.5 11.0-15.5 % Platelet Count 295 130-400 K/uL Mean Platelet Volume 9.1 7.5-10.5 fL Immature Granulocyte % (Auto) 0.4 0-1 % Neutrophils (%) (Auto) 56.3 40.0-77.0 % Lymphocytes (%) (Auto) 29.8 21.0-51.0 % Monocytes (%) (Auto) 11.6 3.0-13.0 % Eosinophils (%) (Auto) 1.3 0.0-8.0 % Basophils (%) (Auto) 0.6 0.0-5.0 % Neutrophils # (Auto) 4.0 1.8-7.7 K/uL Lymphocytes # (Auto) 2.1 1.0-4.8 K/uL Monocytes # (Auto) 0.8 0.1-1.0 K/uL Eosinophils # (Auto) 0.09 0.00-0.70 K/uL Basophils # (Auto) 0.04 0.00-0.20 K/uL Absolute Immature Granulocyte (auto 0.03 0-1 K/uL Nucleated Red Blood Cells 0.0 0.0-0.19 % Prothrombin Time 11.2 9.6-11.6 SEC Prothromb Time International Ratio 1.06 0.85-1.15 Activated Partial Thromboplast Time 34.2 26.3-35.5 SEC Sodium Level 140 136-145 mmol/L Potassium Level 3.6 3.5-5.1 mmol/L Chloride Level 104 101-111 mmol/L Carbon Dioxide Level 30 21-32 mmol/L Blood Urea Nitrogen 14 7-18 mg/dL Creatinine 1.2 0.5-1.3 mg/dL Glomerular Filtration Rate Calc 75 >90 mL/min Random Glucose 93 70-105 mg/dL Total Calcium 8.8 8.5-10.1 mg/dL Total Creatine Kinase 168 21-232 U/L Troponin I High Sensitivity 4 < 4 4-75 ng/L B-Type Natriuretic Peptide < 5 0-100 pg/mL Urine Color LIGHT-YELLOW YELLOW Urine Appearance CLEAR CLEAR Urine pH 6.5 5.0-8.0 Urine Specific [place] 1.004 1.001-1.031 Urine Protein NEGATIVE NEGATIVE mg/dL Urine Glucose (UA) NEGATIVE NEGATIVE mg/dL Urine Ketones NEGATIVE NEGATIVE mg/dL Urine Occult Blood NEGATIVE NEGATIVE Urine Nitrate NEGATIVE NEGATIVE Urine Bilirubin NEGATIVE NEGATIVE mg/dL Urine Urobilinogen 0.2 0.2-1.0 mg/dL Urine Leukocyte Esterase NEGATIVE NEGATIVE [place]/uL Influenza Type A Antigen Negative For Type A NEGATIVE Influenza Type B Antigen Negative For Type B NEGATIVE SARS-CoV-2, RNA, NAAT NEGATIVE SARS CoV-2 NEGATIVE Test 08/02/24 22:22 08/03/24 06:16 Range/Units Troponin I High Sensitivity 6 4-75 ng/L White Blood Count 6.4 4.8-10.8 K/uL Red Blood Count 4.67 4.50-6.20 MIL/uL Hemoglobin 14.4 14.0-18.0 g/dL Hematocrit 41.5 42-54 % Mean Corpuscular Volume 88.9 79-99 fL Mean Corpuscular Hemoglobin 30.8 27.0-33.0 pg Mean Corpuscular Hemoglobin Concent 34.7 32.0-36.0 g/dL Red Cell Distribution Width 12.6 11.0-15.5 % Platelet Count 265 130-400 K/uL Mean Platelet Volume 8.9 7.5-10.5 fL Immature Granulocyte % (Auto) 0.3 0-1 % Neutrophils (%) (Auto) 59.6 40.0-77.0 % Lymphocytes (%) (Auto) 26.7 21.0-51.0 % Monocytes (%) (Auto) 11.2 3.0-13.0 % Eosinophils (%) (Auto) 1.6 0.0-8.0 % Basophils (%) (Auto) 0.6 0.0-5.0 % Neutrophils # (Auto) 3.8 1.8-7.7 K/uL Lymphocytes # (Auto) 1.7 1.0-4.8 K/uL Monocytes # (Auto) 0.7 0.1-1.0 K/uL Eosinophils # (Auto) 0.10 0.00-0.70 K/uL Basophils # (Auto) 0.04 0.00-0.20 K/uL Absolute Immature Granulocyte (auto 0.02 0-1 K/uL Nucleated Red Blood Cells 0.0 0.0-0.19 % Sodium Level 140 136-145 mmol/L Potassium Level 3.9 3.5-5.1 mmol/L Chloride Level 105 101-111 mmol/L Carbon Dioxide Level 30 21-32 mmol/L Blood Urea Nitrogen 12 7-18 mg/dL Creatinine 1.1 0.5-1.3 mg/dL Glomerular Filtration Rate Calc 83 >90 mL/min Random Glucose 93 70-105 mg/dL Total Calcium 8.7 8.5-10.1 mg/dL ASSESSMENT: 1. Recurrent atrial arrhythmias. 2. Recurrent stroke-like symptoms in the context of palpitations. PLAN: discussed with Dr. Flannery. 1. He has recurrent left-sided neurological symptoms in the context of palpitations. He is pending catheter ablation of atypical atrial flutter/pulmonary vein isolation. The procedure has been canceled on two occasions, the 1st due to a hospital admission in the 2nd due to malfunction of the activated clotting time machine which is vital to the procedure. We will make the following changes to his medical therapy while awaiting the procedure: Discontinue propafenone and start Multaq 400 mg twice daily, taper verapamil ER to 180 mg once daily, add IV Lopressor 5 mg as needed for tachycardia. 2. We will likely add metoprolol tartrate 25 mg as needed on discharge. 3. Continue Pradaxa 150 mg twice daily. 4. Anticipate discharge home tomorrow if his rhythm remained stable after adjusting his medical therapy. 5. The catheter ablation procedure will be scheduled as soon as possible once t he ACT machine has been installed. TARUN PINEDO August 03, 2024 12:53
[2024-08-03] MEDS ORDERED: metoPROLOL tartRATE 1 MG/ML 5ML VIAL IV PRN (13:00)
[2024-08-03 15:10] VITALS: BP 130/80; PULSE 79; RESP 18; TEMP 97.5
--- NOTE | 2024-08-03 15:10 | NUR ---
TRANSFER Patient in room 426 from [facility]. Patient aox4, ambulating, no s/sx weakness, dizziness, distress. Patient oriented to room.
--- NOTE | 2024-08-03 18:02 | HMCSR ---
APPROVED REPORT EXAM: Two-dimensional and M-mode echocardiogram with Doppler and color Doppler. Study Details: Hx: SVT INDICATION ICD: R00.2 Palpitations 2D Dimensions RVDd3.5 cmLVEF(%)56.4 (>50%)LA ESV INDEX (BP)15.03 mL/m2 IVSd0.7 (0.7-1.1cm)FS(%)29 % LVDd4.6 (3.8-5.6cm)LA (2D)3.9 (1.6-4.0cm) PWd1.0 (0.7-1.1cm)Ao Root(2D)3.5 (2.0-3.7cm) IVSs1.1 cmLVOT diam2.3 (1.8-2.4cm) LVDs3.3 (2.5-4.0cm) PWs1.2 cm Deformation Strain Apical 4-18.5 % Apical 2-19.5 % Apical 3-19.6 % Global Strain-19.2 % M-Mode Dimensions EPSS0.6 cm LA (MM)3.7 (1.6-4.0cm) Ao Root(MM)4.0 (2.0-3.7cm) Aortic Valve AoV Vmax1.1 m/Andi Peak GR4.6 mmHgLVOT Vmax1.0 m/s AoV VTI0.2 mAo Mean GR2.9 mmHgLVOT VTI0.21 m RAY (VMAX)4.16 cm2AVA (VTI) 4.3 cm2 Mitral Valve MV E Vmax70.6 cm/sDECEL Fmei417 ms MV A Vmax67.8 cm/sP 1/2 T33 ms E/A ratio1.0MVA (PHT)6.8 cm2 TDI E/E' Medial8.7E/E' Lateral6.7 Medial E' Peak V8.14 cm/sLateral E' Peak V10.54 cm/s Pulmonary Valve PV Vmax1.1 m/sPV VTI0.24 mPV Mean GR2.8 mmHg PV Peak GR4.9 mmHg Tricuspid Valve TR Vmax1.5 m/sRAP (EST) 8 fcQyMSFI43.6 mmHg TR Peak GR9.6 mmHg Left Ventricle The left ventricle is normal size. No regional wall motion abnormalities noted. GLS -19.0%. There is normal left ventricular wall thickness. The LVEF is > 65%. The left ventricular diastolic function is normal. Right Ventricle The right ventricle is normal size. The right ventricular systolic function is normal. Atria The left atrium size is normal. The right atrium size is normal. Aortic Valve The aortic valve is normal in structure. No aortic regurgitation is present. There is no aortic valvu lar stenosis. Mitral Valve The mitral valve is normal in structure. There is no mitral valve regurgitation noted. There is no mi tral valve stenosis. Tricuspid Valve The tricuspid valve is normal in structure. There is trace of tricuspid valve regurgitation noted. Pulmonic Valve The pulmonary valve is normal in structure. There is no pulmonic valvular regurgitation. Great Vessels The aortic root is normal in size. IVC is not well visualized. Pericardium There is no pericardial effusion. Other Information Quality : AdequateRhythm : NSR Conclusion The LVEF is > 65%. The left ventricular diastolic function is normal.
--- NOTE | 2024-08-03 18:24 | CONS ---
CONSULTATION NOTE Date of Service: August 03, 2024 Reason for Consultation: Evaluation of dizziness numbness and facial droop Requesting Physician: Hospitalist HISTORY OF PRESENT ILLNESS: Mr. Ham, a 48-year-old male with a history of supraventricular tachycardia (SVT) status post ablation and post-traumatic stress disorder, presents with an episode of dizziness, numbness, and tachycardia that occurred yesterday at 11 AM. The patient reports that he began feeling dizzy about 30 minutes before the main episode. He then noticed his heart rate was elevated, recording 153 beats per minute on his watch. The episode lasted about 3 minutes. During this time, he experienced numbness on the left side of his face and arm. He denies any weakness but describes a sensation of "heaviness" on the affected side. He also felt a "blood rushing" sensation to his head. The patient did not notice any drooling or observe any facial changes in a mirror, but he felt as if his face was "drooping" slightly. Mr. Ham was taken to the hospital, where he received intravenous fluids. He reports that his symptoms, including the numbness and tachycardia, began to improve after the IV treatment. He denies any slurred speech or leg involvement during the episode. The patient mentions that he has experienced similar episodes in the past, describing them as a consistent pattern of "heaviness and then the beaver to the hip, the butt, and then the numbness on the left side." He notes that these symptoms typically occur when his palpitations worsen. Mr. Ham also reports that during these episodes, he sometimes experiences pain localized to the left side of his head. Regarding his medication regimen, Mr. Ham confirms that he has been adherent to his prescribed Dabigatran (Pradaxa). He mentions that his propranolol was recently changed, but he couldn't recall the name of the new medication. Medical History - Supraventricular tachycardia (SVT) - Post-traumatic stress disorder (PTSD) - Transient ischemic attack (TIA) diagnosed last year Surgical History - Cardiac ablation for supraventricular tachycardia Medications and Supplements - Pradaxa (dabigatran) - Taking regularly - Propranolol - Recently changed to another medication starting with "M" Social History - Trauma History: History of post-traumatic stress disorder REVIEW OF SYSTEMS CONSTITUTIONAL: Denies fever, chills, or fatigue. HEAD/FACE: No signs of trauma. EENT: Denies eye pain, blurred vision, double vision, or light sensitivity. RESPIRATORY: Denies shortness of breath, cough, wheezing CARDIOVASCULAR: Positive for palpitations. Denies chest pain, palpitation, syncope GASTROINTESTINAL/ABDOMINAL: Denies abdominal pain, constipation, diarrhea, nausea or vomiting GENITOURINARY: Denies dysuria or hematuria. MUSCULOSKELETAL: Denies joint pain, tenderness, or trauma. INTEGUMENTARY: Denies rash or itchiness NEUROLOGICAL/PSYCH: Positive for numbness in left arm and face, facial heaviness. Negative for weakness, slurred speech, drooling. Denies anxiety, depression, heat or cold intolerance. PAST MEDICAL HISTORY: As above PAST SURGICAL HISTORY: Noncontributory PAST SOCIAL HISTORY: No tobacco alcohol recreational drug abuse FAMILY HISTORY: No family history of stroke or seizures Coded Allergies: No Known Drug Allergies (Unverified Allergy, Unknown, 08/02/24) PHYSICAL EXAM Mental status: The patient is alert, attentive, and oriented. Speech is clear and fluent with good repetition, comprehension, and naming. Pt recalls 3/3 objects at 5 minutes. Cranial nerves: CN II: Visual zamora are full to confrontation. CN III, IV, : At primary gaze, there is no eye deviation. CN V: Facial sensation is intact to pinprick in all 3 divisions bilaterally. Corneal responses are intact. CN VII: Face is symmetric with normal eye closure and smile. CN VIII: Hearing is normal to rubbing fingers CN IX, X: Palate elevates symmetrically. Phonation is normal. CN XI: Head turning and shoulder shrug are intact CN XII: Tongue is midline with normal movements and no atrophy. Motor: There is no pronator drift of out-stretched arms. Muscle bulk and tone are normal. Strength is full bilaterally. Reflexes: Reflexes are 2+ and symmetric at the biceps, triceps, knees, and ankles. Plantar responses are flexor. Sensory: Light touch, pinprick, position sense, and vibration sense are intact in fingers and toes. Coordination: Rapid alternating movements and fine finger movements are intact. There is no dysmetria on [id number] and [id number]. There are no abnormal or extraneous movements. Romberg is absent. Gait/Stance: Not evaluated Vital Sign (Last 24 Hours) 08/03/24 08/03/24 08:11 15:10 Temp 97.5 Pulse 79 Resp 18 B/P (MAP) 130/80 Pulse Ox 95 O2 Delivery Room Air O2 Flow Rate 0 FiO2 21 Intake & Output (last 24hrs) 08/02/24 08/02/24 08/03/24 15:00 23:00 07:00 Intake Total 240 ml Balance 240 ml LABS: Laboratory: Test 08/03/24 06:16 08/02/24 22:22 08/02/24 16:49 08/02/24 13:28 Range/Units White Blood Count 6.4 4.8-10.8 K/uL Red Blood Count 4.67 4.50-6.20 MIL/uL Hemoglobin 14.4 14.0-18.0 g/dL Hematocrit 41.5 L 42-54 % Mean Corpuscular Volume 88.9 79-99 fL Mean Corpuscular Hemoglobin 30.8 27.0-33.0 pg Mean Corpuscular Hemoglobin Concent 34.7 32.0-36.0 g/dL Red Cell Distribution Width 12.6 11.0-15.5 % Platelet Count 265 130-400 K/uL Mean Platelet Volume 8.9 7.5-10.5 fL Immature Granulocyte % (Auto) 0.3 0-1 % Neutrophils (%) (Auto) 59.6 40.0-77.0 % Lymphocytes (%) (Auto) 26.7 21.0-51.0 % Monocytes (%) (Auto) 11.2 3.0-13.0 % Eosinophils (%) (Auto) 1.6 0.0-8.0 % Basophils (%) (Auto) 0.6 0.0-5.0 % Neutrophils # (Auto) 3.8 1.8-7.7 K/uL Lymphocytes # (Auto) 1.7 1.0-4.8 K/uL Monocytes # (Auto) 0.7 0.1-1.0 K/uL Eosinophils # (Auto) 0.10 0.00-0.70 K/uL Basophils # (Auto) 0.04 0.00-0.20 K/uL Absolute Immature Granulocyte (auto 0.02 0-1 K/uL Nucleated Red Blood Cells 0.0 0.0-0.19 % Sodium Level 140 136-145 mmol/L Potassium Level 3.9 3.5-5.1 mmol/L Chloride Level 105 101-111 mmol/L Carbon Dioxide Level 30 21-32 mmol/L Blood Urea Nitrogen 12 7-18 mg/dL Creatinine 1.1 0.5-1.3 mg/dL Glomerular Filtration Rate Calc 83 >90 mL/min Random Glucose 93 70-105 mg/dL Total Calcium 8.7 8.5-10.1 mg/dL Troponin I High Sensitivity 6 4-75 ng/L Influenza Type A Antigen Negative For Type A NEGATIVE Influenza Type B Antigen Negative For Type B NEGATIVE SARS-CoV-2, RNA, NAAT NEGATIVE SARS CoV-2 NEGATIVE Urine Color LIGHT-YELLOW YELLOW Urine Appearance CLEAR CLEAR Urine pH 6.5 5.0-8.0 Urine Specific [place] 1.004 1.001-1.031 Urine Protein NEGATIVE NEGATIVE mg/dL Urine Glucose (UA) NEGATIVE NEGATIVE mg/dL Urine Ketones NEGATIVE NEGATIVE mg/dL Urine Occult Blood NEGATIVE NEGATIVE Urine Nitrate NEGATIVE NEGATIVE Urine Bilirubin NEGATIVE NEGATIVE mg/dL Urine Urobilinogen 0.2 0.2-1.0 mg/dL Urine Leukocyte Esterase NEGATIVE NEGATIVE Mariano/uL Test 08/02/24 12:02 Range/Units Prothrombin Time 11.2 9.6-11.6 SEC Prothromb Time International Ratio 1.06 0.85-1.15 Activated Partial Thromboplast Time 34.2 26.3-35.5 SEC Total Creatine Kinase 168 21-232 U/L B-Type Natriuretic Peptide < 5 0-100 pg/mL DIAGNOSTICS / RADIOLOGY: MRI of the brain without contrast: Negative for stroke awaiting official radiology report Transthoracic echocardiogram: Pending ASSESSMENT / PLAN: Mr. Ham, a 48-year-old male with a history of supraventricular tachycardia (SVT) status post ablation and post-traumatic stress disorder (PTSD), presented with an episode of dizziness, numbness, and facial drooping at 11 am yesterday. Supraventricular Tachycardia (SVT) with Associated Neurological Symptoms Assessment: Mr. Ham experienced an episode of SVT yesterday, with a heart rate of 153 beats per minute recorded on his watch. The episode was associated with dizziness, left-sided numbness (arm and face), and a sensation of facial drooping. These symptoms lasted for approximately 30 minutes before presentation to the hospital. Notably, the neurological symptoms improved after IV fluids were administered and the tachycardia was controlled. An MRI was performed and was negative for stroke. While a transient ischemic attack (TIA) was initially considered, the temporal relationship between symptom resolution and heart rate control suggests that the neurological symptoms are more likely related to the SVT episode. This is consistent with the patient's report of similar symptoms during previous SVT episodes. The exact mechanism of these neurological symptoms in relation to SVT is unclear but may be related to changes in cerebral blood flow during tachycardia. Plan: - Continue Dabigatran (Pradaxa) as previously prescribed - Cardiology consult to review SVT management - Await pending echocardiogram results - Medication change: Discontinue propranolol and start new medication (name not recalled, starts with "M") - Follow up with cardiology for ongoing management of SVT Thank you for your consultation. I will sign off. LEANNA SILVER MD August 03, 2024 18:24
[2024-08-03 20:00] VITALS: BP 136/72; PULSE 75; RESP 20; TEMP 98.1; O2SAT 93
[2024-08-03] MEDS: DRONEDARONE HYDROCHLORIDE 400 MG TABLET PO SCH (20:35)
[2024-08-04] VITALS: BP 129/69; PULSE 73; RESP 16; TEMP 98
[2024-08-04 04:00] VITALS: BP 124/62; PULSE 70; RESP 18; TEMP 98
[2024-08-04 08:00] VITALS: BP 133/73; PULSE 76; RESP 19; TEMP 97.5; O2SAT 100
[2024-08-04] MEDS: VERAPAMIL 180 MG PO SCH (09:00)
[2024-08-04 12:00] VITALS: BP 160/96; PULSE 83; RESP 19; TEMP 97.6
--- NOTE | 2024-08-04 12:20 | PN ---
[facility] CARDIOLOGY PROGRESS NOTE Date Patient Seen: August 04, 2024 Time of Visit: 12:17 Problem List: [Atial arrhythmia Afib Aflutter ] Interval History: [No acute events overnight. Pt has remained in NSR and rate controlled. No te lemetry events noted and he denies any anginal symptoms. ] Physical Examination: GENERAL: [No acute distress.] HEAD: [Normal with no signs of head trauma.] EYES: [PERRLA, EOMI, conjunctiva and sclera normal.] ENT: [Hearing grossly intact, normal oropharynx.] NECK: [Supple without JVD. There is no tenderness, lymphadenopathy, or masses. No thyromegaly. Normal carotid upstrokes without bruits.] LUNGS: [Clear breath sounds bilaterally. No wheezes, or rhonchi.] HEART: [Normal rate and rhythm. Normal S1 and S2 without mumurs, gallop or rub.] VASC: [Peripheral pulses +2 bilaterally.] ABD: [Bowel sounds normal, soft, nontender, no masses, no organomegaly. No audible bruits.] : [Not examined] LYMPH: [No lymphadenopathy noted.] EXT: [No clubbing, cyanosis or edema.] SKIN: [No rashes or lesions noted.] NEURO: [Awake, alert, and oriented x3. No focal sensory or strength deficits noted.] Laboratory: [ ] Hematology Labs: Test 08/03/24 06:16 Range/Units White Blood Count 6.4 4.8-10.8 K/uL Red Blood Count 4.67 4.50-6.20 MIL/uL Hemoglobin 14.4 14.0-18.0 g/dL Hematocrit 41.5 L 42-54 % Mean Corpuscular Volume 88.9 79-99 fL Mean Corpuscular Hemoglobin 30.8 27.0-33.0 pg Mean Corpuscular Hemoglobin Concent 34.7 32.0-36.0 g/dL Red Cell Distribution Width 12.6 11.0-15.5 % Platelet Count 265 130-400 K/uL Mean Platelet Volume 8.9 7.5-10.5 fL Immature Granulocyte % (Auto) 0.3 0-1 % Neutrophils (%) (Auto) 59.6 40.0-77.0 % Lymphocytes (%) (Auto) 26.7 21.0-51.0 % Monocytes (%) (Auto) 11.2 3.0-13.0 % Eosinophils (%) (Auto) 1.6 0.0-8.0 % Basophils (%) (Auto) 0.6 0.0-5.0 % Neutrophils # (Auto) 3.8 1.8-7.7 K/uL Lymphocytes # (Auto) 1.7 1.0-4.8 K/uL Monocytes # (Auto) 0.7 0.1-1.0 K/uL Eosinophils # (Auto) 0.10 0.00-0.70 K/uL Basophils # (Auto) 0.04 0.00-0.20 K/uL Absolute Immature Granulocyte (auto 0.02 0-1 K/uL Nucleated Red Blood Cells 0.0 0.0-0.19 % Chemistry Labs: Test 08/03/24 06:16 08/02/24 22:22 Range/Units Sodium Level 140 136-145 mmol/L Potassium Level 3.9 3.5-5.1 mmol/L Chloride Level 105 101-111 mmol/L Carbon Dioxide Level 30 21-32 mmol/L Blood Urea Nitrogen 12 7-18 mg/dL Creatinine 1.1 0.5-1.3 mg/dL Glomerular Filtration Rate Calc 83 >90 mL/min Random Glucose 93 70-105 mg/dL Total Calcium 8.7 8.5-10.1 mg/dL Troponin I High Sensitivity 6 4-75 ng/L Diagnostics / Radiology: [Copy/Paste Echos/Imaging Report here] Impression and Plan: Atrial arrhythmia Afib Aflutter 1. He has recurrent left-sided neurological symptoms in the context of palpi tations. He is pending catheter ablation of atypical atrial flutter/pulmonary vein isolation. The procedure has been canceled on two occasions, the 1st due to a hospital admission in the 2nd due to malfunction of the activated clotting time machine which is vital to the procedure. We will continue Multaq 400 mg twice daily, verapamil ER 180 mg once daily and there has been no tele events since initiation 2. No need for metoprolol at this time. 3. Continue Pradaxa 150 mg twice daily. 4. Anticipate discharge home today given his rhythm remained stable after adjusting his medical therapy. 5. The catheter ablation procedure will be scheduled as soon as possible once the ACT machine has been installed. ] Thank you for this consult. Cardiology will sign off at this time. Pt needs close outpt CArdiology follow up 1-2 weeks post DC MAYELA PABLO MD August 04, 2024 12:20
--- NOTE | 2024-08-04 14:03 | HMCIMG ---
Exam Type: MR BRAIN WO CON Clinical Information: TIA Comparison: None Technique: T1 weighed sagittal, T1-weighted axial, T2-weighted axial, diffusion, apparent diffusion, exponential diffusion weighted axial, T2-weighted FLAIR sagittal, coronal and axial images of the brain. Findings: The examination is unremarkable. Osorio-white matter junction is preserved. No intra or extra axial lesions or fluid collections are seen. There are no infarcts. There are no hemorrhages. Signal intensity is normal throughout the periventricular white matter locations. The orbital contents and structures of the posterior fossa are intact. The sella and its contents and the structures of the skull base are intact as well. Impression: Normal exam without gadolinium.
[2024-08-04] MEDS ORDERED: DRON400T7 PO (15:21)
[2024-08-04] MEDS ORDERED: VERA180T61 PO (15:21)
[2024-08-04 16:00] VITALS: BP 112/52; PULSE 72; RESP 19; TEMP 97.5
--- NOTE | 2024-08-04 16:02 | NUR ---
Discharge 1605 Patient alert and oriented instructed on discharge /medications. Patient verbalized understanding of medication regimen and aware prescriptions have been sent to primary pharmacy. No questions or concerns at this time. accompanied patient throughout discharge. Aide GROUP HOME MANAGER walked patient to personal vehicle.
[2024-08-05] MEDS ORDERED: DRON400T7 PO (09:51)
[2024-08-05] MEDS ORDERED: METO25TA6 PO (09:51)
== END 2024-08-04 16:05 | disposition home or self-care (01) ==
LOC: EDH 11:15 → OBSVTOIN 11:16 → INTOOBSV 11:16 → UNDOADMOB 11:16 → MERGE 11:16 → EDHIP 11:16 → UNDOADMOB 14:50 → OBSVTOIN 14:50 → INTOOBSV 14:50 → 2AH 16:40 → EDHIP 16:40 → 4DH 08-03 15:07
PROVIDERS: ADMIT Internal Medicine; ATTEND Internal Medicine
DX: I49.9 Cardiac arrhythmia, unspecified (principal); Z20.822 Contact with and (suspected) exposure to COVID-19; R00.2 Palpitations; F43.10 Post-traumatic stress disorder, unspecified; I48.92 Unspecified atrial flutter; G45.9 Transient cerebral ischemic attack, unspecified; Z86.73 Personal history of transient ischemic attack (TIA), and cerebral infarction without residual deficits; Z79.899 Other long term (current) drug therapy
CPT/HCPCS: 96374; 96361; 99285; 82550; 84484 ×3; 80048 ×2; 83880; 85025 ×2; 85610; 85730; 87804 ×2; 81003; 36415 ×2; 87635; 71045; 70450; 71250; 70496; 70498; 93005; 96376 ×2; 93306; 93356; 70551; 97161; 97116; 97530 ×2; G0378 ×26; J3490 ×4; J7030; Q9967

== ENCOUNTER 2024-08-05 08:15 | Emergency (ER) | payer OTHER ==
[~2024-08-05] VITALS: Ht 182.9 cm; Wt 115.7 kg
[~2024-08-05 08:15] MED LIST changes: +ATOR40TA69 PO; +CETI10TA87 PO; +DRON400T7 PO; +VENL-83 PO; +VERA180T61 PO
[2024-08-05 08:38] LABS: BASOPHILS # (AUTO) 0.04 K/uL (0.00-0.20); BASOPHILS % (AUTO) 0.5 % (0.0-5.0); EOSINOPHILS # (AUTO) 0.08 K/uL (0.00-0.70); EOSINOPHILS % (AUTO) 1.1 % (0.0-8.0); HEMATOCRIT 43.6 % (42-54); IMMATURE GRANULOCYTE ABSOLUTE 0.02 K/uL (0-1); LYMPHOCYTES # (AUTO) 1.9 K/uL (1.0-4.8); LYMPHOCYTES % (AUTO) 26.4 % (21.0-51.0); MEAN CORPUSCULAR HEMOGLOBIN 31.1 pg (27.0-33.0); MEAN CORPUSCULAR HGB CONC 34.6 g/dL (32.0-36.0); MEAN CORPUSCULAR VOLUME 89.9 fL (79-99); MONOCYTES # (AUTO) 0.9 K/uL (0.1-1.0); MONOCYTES % (AUTO) 12.7 % (3.0-13.0); NEUTROPHILS # (AUTO) 4.3 K/uL (1.8-7.7); PLATELET COUNT (AUTO) 288 K/uL (130-400); RED BLOOD CELL COUNT(AUTO) 4.85 MIL/uL (4.50-6.20); RED CELL DISTRIBUTION WIDTH 12.3 % (11.0-15.5); WHITE BLOOD COUNT (AUTO) 7.3 K/uL (4.8-10.8)
--- NOTE | 2024-08-05 08:45 | ERN ---
General Chief Complaint: Palpitations Stated Complaint: PALPITATIONS Time Seen by MD: 08:21 History of Present Illness Initial Comments 48-year-old male history of atrial fibrillation presents for palpitations dizziness. Patient reports he was recently admitted to this facility, he was supposed to start Multaq, but was unable to because he was unable to pick it up from the [place]. he took verapamil and Pradaxa this morning. He denies any chest pain. Allergies: Coded Allergies: No Known Drug Allergies (Unverified Allergy, Unknown, 08/02/24) Home Meds Active Scripts Verapamil HCl (Verapamil ER 180Mg Tab) 180 Mg Tablet.er, 1 TAB PO DAILY for 30 Days, #30 TAB 0 Refills Prov:NIKOLAS PABON MD 08/04/24 Dronedarone Hydrochloride (Multaq) 400 Mg Tablet, 400 MG PO BID, #60 TAB Prov:NIKOLAS PABON MD 08/04/24 Reported Medications Cetirizine HCl (Cetirizine HCl) 10 Mg Tab.chew, 1 TAB PO DAILY for allergy symptoms for 30 Days, #30 TAB 0 Refills 08/02/24 Venlafaxine HCl (Venlafaxine HCl) 75 Mg Tablet, 75 MG PO DAILY, TAB 08/02/24 Dabigatran Etexilate Mesylate (Pradaxa) 150 Mg Capsule, 1 CAP PO BID for 30 Days, #60 CAP 0 Refills 08/02/24 Atorvastatin Calcium (LIPITOR) 40 Mg Tablet, 1 TAB PO HS for 30 Days, #30 TAB 0 Refills 08/02/24 Pantoprazole Sodium (Pantoprazole Sodium) 40 Mg Tablet.dr, 1 TAB PO DAILY for 30 Days, #30 TAB 0 Refills 08/02/24 Gabapentin (Gabapentin) 100 Mg Capsule, 1 CAP PO TID for 30 Days, #90 CAP 0 Refills 08/02/24 Discontinued Reported Medications Propafenone HCl (Propafenone HCl) 325 Mg Cap.er.12h, 1 CAP PO BID for 30 Days, #60 CAP 0 Refills 08/02/24 Verapamil HCl (Verapamil ER) 240 Mg Cap24h.pel, 1 CAP PO DAILY for 30 Days, #30 CAP 0 Refills 08/02/24 Past Medical History Past Medical History: A-Fib, High Cholesterol, Hypertension Medical History Other: PTSD, AFLUTTER, SVT, VERTIGO Past Surgical History: Other Surgical History Other: ABLATION ROS Dictation CONSTITUTIONAL: No chills, no fever, no weakness, no diaphoresis, no malaise. HEAD/FACE: No signs of trauma. EENT: No eye pain, no blurred vision, no tearing, no double vision, no ear pain, no ear discharge, no nose pain, no nasal congestion, no throat pain, no throat swelling, no mouth pain. RESPIRATORY: No cough, no orthopnea, no SOB, no stridor, no wheezing. CARDIOVASCULAR: Palpitations and dizziness GASTROINTESTINAL/ABDOMINAL: No abdominal pain, no constipation, no diarrhea, no nausea, no vomiting. GENITOURINARY: No abnormal discharge, no dysuria, no frequent urination, no hematuria. No complaints of pain in the genitals. MUSCULOSKELETAL: No back pain, no gout, no joint pain, no joint swelling, no muscle pain, no muscle stiffness, no neck pain. INTEGUMENTARY: No change in color, no change in hair/nails, no dryness, no lesion, no lumps, no rash. NEUROLOGICAL/PSYCH: No anxiety, not depressed, no emotional problem, no headache, no numbness, no pre-existing deficit, no history of seizures, no tremors, no weakness. HEMATOLOGIC/LYMPHATIC: Not anemic, no history of blood clots, no apparent bleeding, no bruising, glands not swollen. All Systems Negative, Except as Noted. Physical Exam Physical Exam Dictation VITAL SIGNS: Reviewed. GENERAL APPEARANCE: Alert, oriented x3, no acute distress, obese. HEAD AND FACE: Non-traumatic. EYES: PERRL, pink conjunctivas, eyelid no trauma, anterior chamber clear. EARS: Pinnas intact and no signs of trauma or erythema. Ear canals clear and no discharge. TMs no erythema. NOSE: No discharge, no bleeding. OROPHARYNX: Mouth normal, teeth no caries, tongue pink. Pharynx clear, no erythema. Tonsils no exudates, no abscesses noted. Mucous membrane moist. NECK: Supple, non-tender, no thyromegaly, no masses, no JVD, no bruits. BREAST: Deferred. CHEST: No tenderness, no crepitus, no paradoxical movement, no retractions. LUNGS: Clear, well-ventilated, symmetric, no rales, no wheezing, no rhonchi, no stridor, good breath sounds bilaterally. HEART: Regular rate, regular rhythm, no murmur, no gallops. VASCULAR: No peripheral edema. ABDOMEN: Soft, positive bowel sounds, nondistended, no guarding, nontender, no rebound, no masses no hepatomegaly, no splenomegaly, no Verma's sign, no hernias. RECTAL: Deferred. GENITAL: Deferred. NEUROLOGICAL: Normal speech, gross motor function intact, gross sensory function intact. MUSCULOSKELETAL: Neck nontender, full range of motion, back nontender, full range of motion. EXTREMITIES: Nontender, full range of motion. SKIN: Color pink, dry, no turgor, no rash, no lacerations, no abrasions, no contusions. LYMPHATICS: Deferred. Results Laboratory and Microbiology Lab and Micro Result Laboratory Tests Test 08/05/24 08:30 White Blood Count 7.3 K/uL (4.8-10.8) Red Blood Count 4.85 MIL/uL (4.50-6.20) Hemoglobin 15.1 g/dL (14.0-18.0) Hematocrit 43.6 % (42-54) Mean Corpuscular Volume 89.9 fL (79-99) Mean Corpuscular Hemoglobin 31.1 pg (27.0-33.0) Mean Corpuscular Hemoglobin Concent 34.6 g/dL (32.0-36.0) Red Cell Distribution Width 12.3 % (11.0-15.5) Platelet Count 288 K/uL (130-400) Mean Platelet Volume 9.3 fL (7.5-10.5) Immature Granulocyte % (Auto) 0.3 % (0-1) Neutrophils (%) (Auto) 59.0 % (40.0-77.0) Lymphocytes (%) (Auto) 26.4 % (21.0-51.0) Monocytes (%) (Auto) 12.7 % (3.0-13.0) Eosinophils (%) (Auto) 1.1 % (0.0-8.0) Basophils (%) (Auto) 0.5 % (0.0-5.0) Neutrophils # (Auto) 4.3 K/uL (1.8-7.7) Lymphocytes # (Auto) 1.9 K/uL (1.0-4.8) Monocytes # (Auto) 0.9 K/uL (0.1-1.0) Eosinophils # (Auto) 0.08 K/uL (0.00-0.70) Basophils # (Auto) 0.04 K/uL (0.00-0.20) Absolute Immature Granulocyte (auto 0.02 K/uL (0-1) Nucleated Red Blood Cells 0.0 % (0.0-0.19) Prothrombin Time 11.3 SEC (9.6-11.6) Prothromb Time International Ratio 1.07 (0.85-1.15) Sodium Level 141 mmol/L (136-145) Potassium Level 4.0 mmol/L (3.5-5.1) Chloride Level 104 mmol/L (101-111) Carbon Dioxide Level 29 mmol/L (21-32) Blood Urea Nitrogen 15 mg/dL (7-18) Creatinine 1.2 mg/dL (0.5-1.3) Glomerular Filtration Rate Calc 75 mL/min (>90) Random Glucose 96 mg/dL (70-105) Total Calcium 9.0 mg/dL (8.5-10.1) Magnesium Level 2.20 mg/dL (1.80-2.40) Total Creatine Kinase 129 U/L (21-232) # Troponin I High Sensitivity 4 ng/L (4-75) B-Type Natriuretic Peptide 12 pg/mL (0-100) MDM CC: Palpitations Historian: Patient Comorbidities: Atrial fibrillation Limitations by social determinants of health: None Differential diagnosis: Atrial fibrillation, RVR, ACS, electrolyte abnormality, other Initial vital signs are stable, they remained stable in the ER. EKG shows a ectopic atrial rhythm, rate of 96 normal axis good R-wave progression seen no PVC no STEMI. Independently interpreted by me. Labs (independently ordered and interpreted by me): No leukocytosis, no anemia, coags are normal, metabolic panel normal, magnesium normal, troponin BNP normal I have performed an extensive chart review, the patient was recently discharged from this facility and discharged by the [facility]. I read the consultation note. They recommend Multaq 400 mg p.o. b.i.d., verapamil 180 mg daily, and Pradaxa 150 mg b.i.d.. He also recommend metoprolol 25 mg as needed. Patient feels good in the ER. He is pending picking up the Multaq. He was given a dose of Multaq oral here in the ER. Plan will be to discharge. I will give him a p.r.n. prescription for metoprolol tartrate 25 mg to use as needed for heart rate above 120 while symptomatic. Patient agrees with this plan. He has good follow up. We will DC. ED Course Orders Procedure Category Date Status Time Cbc With Differential LAB 08/05/24 Complete 08:26 Prothrombin Time With LAB 08/05/24 Complete INR 08:26 B-Type Natriuretic LAB 08/05/24 Complete Peptide 08:26 12 Lead Ekg Tracing- EKG 08/05/24 Logged Technical 08:26 Magnesium LAB 08/05/24 Complete 08:26 Creatine Kinase, Total LAB 08/05/24 Complete 08:26 Troponin I High LAB 08/05/24 Complete Sensitivity 08:26 Basic Metabolic Panel LAB 08/05/24 Complete 08:26 Vital Signs Date Time Temp Pulse Resp B/P (MAP) Pulse Ox O2 Delivery O2 Flow Rate FiO2 08/05/24 08:25 98.2 100 12 137/89 95 Room Air* 0 21 08/05/24 08:18 98.2 97 17 118/79 96 Room Air 0 DX & DISP Disposition: Discharge Departure Impression: Primary Impression: Atrial fibrillation Condition: Stable Scripts Metoprolol Tartrate (Metoprolol Tartrate) 25 Mg Tablet 1 TAB PO BID for palpitations, HR> 120 for 30 Days, #60 TAB 0 Refills Prov: ROBI SANDOVAL DO 08/05/24 Dronedarone Hydrochloride (Multaq) 400 Mg Tablet 400 MG PO BID for 30 Days, #60 TAB Prov: ROBI SANDOVAL DO 08/05/24 Additional Instructions: There are no emergent to dangerous findings on your workup here today. Your EKG shows an atrial rhythm consistent with atrial fibrillation. The rate has been in between 90 and 110 here in the emergency department. Your blood work (CBC, metabolic panel, magnesium level, BNP, troponin) is normal. You received a dose of Multaq here in the ER. As we discussed, take 400 mg of Multaq twice a day, 180 mg of verapamil once a day, and 150 mg of Pradaxa twice per day. I have prescribed metoprolol tartrate 25 mg. You can use this medication if you are feeling palpitations and your heart rate is remaining above 110-120 consistently. This medication will slow the rate. Monitor how often you have to use this medication. I recommend that you follow up as already scheduled with your timber hewer. Return to the emergency department as needed. Referrals: TONY PARHAM (PCP) ROBI SANDOVAL DO August 05, 2024 08:45
[2024-08-05 08:47] LABS: CREATININE 1.2 mg/dL (0.5-1.3); INR 1.07 (0.85-1.15); PROTHROMBIN TIME 11.3 SEC (9.6-11.6)
[2024-08-05 08:52] LABS: MAGNESIUM 2.2 mg/dL (1.80-2.40)
[2024-08-05 09:03] LABS: B-TYPE NATRIURETIC PEPTIDE 12 pg/mL (0-100)
[2024-08-05] MEDS: DRONEDARONE HYDROCHLORIDE 400 MG TABLET PO ONE (09:51)
[2024-08-05] MEDS ORDERED: DRON400T7 PO (09:51)
[2024-08-05] MEDS ORDERED: METO25TA6 PO (09:51)
[2024-08-05 10:10] VITALS: BP 123/81; PULSE 74; RESP 16; TEMP 98; O2SAT 96
--- NOTE | 2024-08-06 09:09 | EKG ---
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
== END 2024-08-05 10:10 | disposition home or self-care (01) ==
LOC: MERGE 08:15 → EDH 08:15
DX: I48.91 Unspecified atrial fibrillation (principal); E78.00 Pure hypercholesterolemia, unspecified; F43.10 Post-traumatic stress disorder, unspecified; I10 Essential (primary) hypertension; Z79.02 Long term (current) use of antithrombotics/antiplatelets; Z79.899 Other long term (current) drug therapy
CPT/HCPCS: 36415; 80048; 82550; 83735; 83880; 84484; 85025; 85610; 93005; 99284

== ENCOUNTER 2024-10-07 08:31 | Day surgery (SDC) | payer OTHER ==
[2024-10-03 09:25] LABS: IMMATURE GRANULOCYTE ABSOLUTE 0.04 K/uL (0-1); NUCLEATED RED BLOOD CELLS 0.0 % (0.0-0.19); PLATELET COUNT (AUTO) 238 K/uL (130-400); RED BLOOD CELL COUNT(AUTO) 4.41 MIL/uL (4.50-6.20); RED CELL DISTRIBUTION WIDTH 12.4 % (11.0-15.5); WHITE BLOOD COUNT (AUTO) 6.7 K/uL (4.8-10.8)
[2024-10-03 09:30] LABS: CREATININE 1.0 mg/dL (0.5-1.3); GLOMERULAR FILTR. RATE CALC 93.0 mL/min (>90); GLUCOSE,RANDOM 102.0 mg/dL (70-105); SODIUM SERUM 140.0 mmol/L (136-145); UREA NITROGEN, BLOOD 18.0 mg/dL (7-18)
[2024-10-03 09:31] LABS: INR 1.32 (0.85-1.15)
[2024-10-03 09:45] VITALS: BP 123/66; PULSE 72; RESP 18; TEMP 97.2
--- NOTE | 2024-10-03 10:46 | EKG ---
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
[~2024-10-07] VITALS: Ht 185.4 cm; Wt 123.3 kg
[2024-10-07] VITALS (17 sets, daily range): BP systolic 75–124; BP diastolic 32–76; PULSE 63–81; RESP 9–18; TEMP 97.1–97.8
[~2024-10-07 08:31] MED LIST changes: -ATOR40TA69 PO; -CETI10TA87 PO; -MELA3TAB69 PO; +METO25TA6 PO; -PROP325C17 PO; -VENL-63 PO; -VERA240T95 PO
[2024-10-07] MEDS ORDERED: HEParin-NS 1,000 UNIT/500 ML 1,000 ML IV ONE (13:44)
[2024-10-07] MEDS ORDERED: SODIUM BICARB 50MEQ 50ML VIAL 50 ML ONE ×2 (13:44→14:34)
[2024-10-07] MEDS ORDERED: LIDOCAINE HCL 400MG/20ML VIAL ONE ×2 (13:44→14:34)
[2024-10-07] MEDS ORDERED: MIDAZOLAM HCL 1 MG/ML 2ML VIAL ONE (13:52)
[2024-10-07] MEDS ORDERED: HEParin-NS 1,000 UNIT/500 ML 500 ML IV ONE (14:40)
[2024-10-07] MEDS ORDERED: ISOPROTERENOL HCL 0.2 MG/ML AMP/VIAL/BAG ONE ×2 (15:57→16:18)
[2024-10-07] MEDS ORDERED: GLYCOPYRROLATE 0.2 MG/ML 5 ML VIAL ONE (16:47)
[2024-10-07] MEDS ORDERED: NEOSTIGMINE METHYLSULFATE 1MG/ML IV ONE (16:48)
--- NOTE | 2024-10-07 18:01 | NUR ---
gave report to kaylen whyte rn no concerns voiced
--- NOTE | 2024-10-07 19:30 | NUR ---
pt began to bleed from right femoral site. direct pressure applied for 15 minutes with dstat dressing. bleeding controlled, vitals remain stable, site dressed with dstat and tegaderm dresing and remained clean dry and intact. pt instructed on applying direct pressure to site and to call MD if bleeding happens at home.
== END 2024-10-07 20:15 | disposition home or self-care (01) ==
LOC: DAH 08:31
PROVIDERS: ATTEND Internal Medicine Cardiovascular Disease
DX: I47.10 Supraventricular tachycardia, unspecified (principal); I48.3 Typical atrial flutter; I48.4 Atypical atrial flutter; Z79.01 Long term (current) use of anticoagulants; F32.A Depression, unspecified; Z79.899 Other long term (current) drug therapy
CPT/HCPCS: 80048; 85025; 85610; 85730; 36415; 93005; 93653; 93623; J1885; C1894 ×4; C1732 ×2; C1730; A4649 ×2; C1760; J3010 ×3; J3490 ×7; J2270; J1644 ×3; J2250; J2704 ×2; J2405 ×2; J2710; J2371; A4215; A4222; A4221; A4663; A4216; A4606; A4223 ×3